=== PATIENT | female | born 1950 | race Hispanic/Latino ===

== ENCOUNTER 2017-10-24 16:11 | Inpatient (IN) | payer MEDICARE, OTHER ==
--- NOTE | 2017-10-24 17:31 | ED PDOC ---
HPI: General Adult Time Seen by Provider: 10/24/17 16:43 Chief Complaint (Nursing): Weakness/Neurological Deficit Chief Complaint (Provider): Weakness/Neurological Deficit History Per: Patient History/Exam Limitations: no limitations Onset/Duration Of Symptoms: Other (x today) Additional Complaint(s): Brittany is a 66 year old female with a past medical history of cerebral palsy who was sent by PMD to the Emergency Department for medical evaluation. Patient states she lives with her 95 year old mother. States they are no longer able to care for themselves. Family member states patient has been having frequent falls at home, no LOC. PMD: Jonn Medrano Past Medical History Reviewed: Historical Data, Nursing Documentation, Vital Signs Vital Signs: Last Vital Signs Temp 98.5 F 10/28/17 16:04 Pulse 93 H 10/28/17 16:04 Resp 19 10/28/17 16:04 BP 138/87 10/28/17 16:04 Pulse Ox 96 10/28/17 16:24 - Medical History Other PMH: Cerebral Palsy - Surgical History Surgical History: No Surg Hx - Family History Family History: States: No Known Family Hx - Living Arrangements Living Arrangements: Other (with 95 year old mother) - Home Medications Home Medications: Ambulatory Orders Medication Instructions Recorded Atorvastatin [Lipitor] 10 mg PO HS 10/24/17 Cholecalciferol (Vitamin D3) 2,000 unit PO DAILY 10/24/17 [Vitamin D3] Enalapril Maleate [Vasotec] 10 mg PO DAILY 10/24/17 Glipizide [Glipizide Xl] 10 mg PO BID 10/24/17 SITagliptin [Januvia] 100 mg PO DAILY 10/24/17 metFORMIN [glucOPHAGE] 850 mg PO BID 10/24/17 - Allergies Allergies/Adverse Reactions: Allergies Allergy/AdvReac Type Severity Reaction Status Date / Time Penicillins Allergy RASH Verified 10/24/17 16:42 Review of Systems ROS Statement: Except As Marked, All Systems Reviewed And Found Negative Constitutional: Positive for: Weakness Physical Exam - Reviewed Nursing Documentation Reviewed: Yes Vital Signs Reviewed: Yes - Physical Exam Appears: Positive for: Well, Non-toxic, No Acute Distress Head Exam: Positive for: NORMOCEPHALIC Cardiovascular/Chest: Positive for: Regular Rate, Rhythm Respiratory: Positive for: Normal Breath Sounds. Negative for: Respiratory Distress Extremity: Positive for: Other (Superfacial abrasions on arms secondary to self- scratching) Neurologic/Psych: Positive for: Alert, Oriented (x 3) - Laboratory Results Result Diagrams: 10/26/17 05:40 10/26/17 05:40 - ECG O2 Sat by Pulse Oximetry: 96 (RA) Pulse Ox Interpretation: Normal Medical Decision Making Medical Decision Making: Time: 17:22 Plan: - EKG - CMP - CNC - Partial Thromboplastin Time - Prothrombin Time - Portable Chest X-Ray - Glucose, Blood, POC STAT - Urinalysis Scribe Attestation: Documented by Husam Christianson, acting as a scribe for Audrey Alexander MD Provider Scribe Attestation: All medical record entries made by the Scribe were at my direction and personally dictated by me. I have reviewed the chart and agree that the record accurately reflects my personal performance of the history, physical exam, medical decision making, and the department course for this patient. I have also personally directed, reviewed, and agree with the discharge instructions and disposition. Disposition - Clinical Impression Clinical Impression: Frequent falls - Patient ED Disposition Is Patient to be Admitted: Yes - Disposition Disposition Time: 18:54 Condition: STABLE - Pt Status Changed To: Hospital Disposition Of: Inpatient - Admit Certification Admit to Inpatient:: After my assessment, the patient will require hospitalization for at least two midnights. This is because of the severity of symptoms shown, intensity of services needed, and/or the medical risk in this patient being treated as an outpatient. - POA Present On Arrival: Falls Or Trauma
[2017-10-24 18:02] LABS: BASO # 0.1 K/uL (0.0-0.2); BASO % 0.7 % (0.0-2.0); EOS # 0.1 K/uL (0.0-0.7); EOS % 1.1 % (0.0-4.0); LYMPH # 2.7 K/uL (1.0-4.3); LYMPH % 21.6 % (20.0-40.0); MEAN CELL VOLUME 90.7 fl (81.0-99.0); MEAN CORPUSCULAR HEMOGLOBIN 29.6 pg (27.0-31.0); MEAN CORPUSCULAR HGB CONC 32.6 g/dL (33.0-37.0); MONO # 0.9 K/uL (0.0-0.8); MONO % 6.8 % (0.0-10.0); NEUT # 8.8 K/uL (1.8-7.0); NEUT % 69.8 % (50.0-75.0); RED CELL DISTRIBUTION WIDTH 13.5 % (11.5-14.5); WHITE BLOOD COUNT 12.6 K/uL (4.8-10.8)
[2017-10-24 18:10] LABS: ALB/GLOB RATIO 1.5 (1.0-2.1); ALKALINE PHOSPHATASE 78 U/L (38-126); ALT/SGPT 54 U/L (9-52); AST/SGOT 24 U/L (14-36); BILIRUBIN,TOTAL 0.4 mg/dl (0.2-1.3); BLOOD UREA NITROGEN 17 mg/dl (7-17); CALCIUM 9.5 mg/dL (8.4-10.2); CARBON DIOXIDE 29 mmol/L (22-30); CHLORIDE 104 mmol/L (98-107); GFR AFRICAN-AMERICAN > 60; GLUCOSE,RANDOM 163 mg/dL (65-105); POTASSIUM 3.9 MMOL/L (3.6-5.0); SODIUM 144 mmol/l (132-148); TOTAL PROTEIN 7.5 G/DL (6.3-8.2)
[2017-10-24 18:25] LABS: PARTIAL THROMBOPLASTIN TIME 28.4 Seconds (25.6-37.1)
[2017-10-25 01:49] LABS: RBC URINE 3 /hpf (0-3); URINE BACTERIA OCC (<OCC); URINE BILIRUBIN NEGATIVE (NEGATIVE); URINE BLOOD NEGATIVE (NEGATIVE); URINE COLOR YELLOW (YELLOW); URINE GLUCOSE (UA) NEG (Normal); URINE KETONE NEGATIVE (NEGATIVE); URINE PROTEIN 30 mg/dL (NEGATIVE); URINE UROBILINOGEN 0.2-1.0 mg/dL (0.2-1.0); WBC URINE 15 /hpf (0-5)
[2017-10-25 01:53] LABS: URINE LEUKOCYTE ESTERASE SMALL Leu/uL (Negative)
[2017-10-25 06:23] LABS: HEMATOCRIT 40.4 % (34.0-47.0); MEAN CELL VOLUME 90.1 fl (81.0-99.0); MEAN CORPUSCULAR HEMOGLOBIN 30.3 pg (27.0-31.0); MEAN CORPUSCULAR HGB CONC 33.6 g/dL (33.0-37.0); RED CELL DISTRIBUTION WIDTH 13.6 % (11.5-14.5)
[2017-10-25 06:30] LABS: BLOOD UREA NITROGEN 16 mg/dl (7-17); CALCIUM 9.3 mg/dL (8.4-10.2); CARBON DIOXIDE 26 mmol/L (22-30); CHLORIDE 106 mmol/L (98-107); CHOLESTEROL 194 mg/dL (0-199); GFR AFRICAN-AMERICAN > 60; GLUCOSE,RANDOM 163 mg/dL (65-105); POTASSIUM 3.6 MMOL/L (3.6-5.0); SODIUM 141 mmol/l (132-148)
[2017-10-25 06:59] LABS: THYROID STIMULATING HORMONE 1.66 mIU/ML (0.46-4.68)
[2017-10-25] MEDS: GlipiZIDE 10 mg SR Tab PO SCH ×2 (08:46→17:26)
[2017-10-25] MEDS ORDERED: Enoxaparin 30 mg Syringe SC SCH (09:00)
--- NOTE | 2017-10-25 10:58 | CARD ---
APPROVED REPORT EKG Measurement Heart [id number] <Conclusion> Normal sinus rhythm Normal ECG
--- NOTE | 2017-10-25 11:28 | CP.PCM.CON ---
History of Present Illness - History of Present Illness History of Present Illness: This 66-year-old female who suffers from cerebral palsy presented to the emergency department with her mother the course of increased falls. Her mother who is her primary livestock caretaker is 95 years old and has developed dementia and appears to be unable to care for her daughter any longer. She is known to me from a prior office visit approximately 5 years ago at which time the history include hypertension, hyperlipidemia, NIDDM, and as mentioned above cerebral palsy. Had thyroid nodules which are benign. She did have recovering maxillary sinusitis with increased cough and expectoration because of posterior rhinorrhea. Review of Systems - Constitutional Constitutional: Frequent Falls, Weight Gain - EENT Nose/Mouth/Throat: Nasal Congestion, Post Nasal Drip - Respiratory Respiratory: Cough, Excessive Mucous Production - Musculoskeletal Musculoskeletal: Abnormal Gait - Integumentary Integumentary: Wounds Additional comments: Patient has a propensity to scratch her skin excessively resulting in excoriations. - Neurological Neurological: Abnormal Speech, Frequent Falls, Lack of Coordination Additional comments: cerebral palsy Past Patient History - Past Medical History & Family History Past Medical History?: Yes - Past Social History Smoking Status: Never Smoked Chewing Tobacco Use: No Cigar Use: No Alcohol: None Drugs: Denies Home Situation {Lives}: With Family - CARDIAC Hx Hypercholesterolemia: Yes Hx Hypertension: Yes - PULMONARY Hx Bronchitis: Yes - NEUROLOGICAL Hx Neurological Disorder: Yes Other/Comment: Pt has Cerebral Palsey - HEENT Hx Sinusitis: Yes - RENAL Hx Chronic Kidney Disease: No - ENDOCRINE/METABOLIC Hx Diabetes Mellitus Type 2: Yes - HEMATOLOGICAL/ONCOLOGICAL Hx Blood Disorders: No - INTEGUMENTARY Other/Comment: pruritus with diffuse excoriations - MUSCULOSKELETAL/RHEUMATOLOGICAL Hx Falls: Yes Hx Unsteady Gait: Yes - GASTROINTESTINAL Hx Gastrointestinal Disorders: No - GENITOURINARY/GYNECOLOGICAL Hx Genitourinary Disorders: No - PSYCHIATRIC Hx Substance Use: No - SURGICAL HISTORY Hx Surgeries: No - ANESTHESIA Hx Anesthesia: No Hx Anesthesia Reactions: No Hx Malignant Hyperthermia: No Meds Allergies/Adverse Reactions: Allergies Allergy/AdvReac Type Severity Reaction Status Date / Time Penicillins Allergy RASH Verified 10/24/17 16:42 - Medications Medications: Current Medications Atorvastatin Calcium (Lipitor) 10 mg PO [facility] Cholecalciferol (Vitamin D) 2,000 iu PO DAILY [facility] Last Admin: 10/25/17 08:47 Dose: 2,000 iu Enalapril Maleate (Vasotec) 10 mg PO DAILY [facility] Last Admin: 10/25/17 08:47 Dose: 10 mg Enoxaparin Sodium (Lovenox) 40 mg SC DAILY [facility] PRN Reason: Protocol Glipizide (Glucotrol Xl) 10 mg PO BID [facility] Last Admin: 10/25/17 08:46 Dose: 10 mg Metformin HCl (Glucophage) 850 mg PO BID [facility] Last Admin: 10/25/17 08:46 Dose: 850 mg Sitagliptin Phosphate (Januvia) 100 mg PO DAILY [facility] Last Admin: 10/25/17 08:46 Dose: 100 mg Physical Exam - Additional Findings Additional findings: No acute distress, but anxious because of hospitalization. Normocephalic without any lesions. No palpable lymphadenopathy. Conjunctivae are pink and there is no scleral icterus. Mild periorbital edema is noted bilaterally. Nares are patent bilaterally. Watery secretions are noted in both nasal passages. Throat is mildly hyperemic without any exudate. Mucous membranes are moist. Neck supple and trachea is midline. No neck vein distention or carotid bruit. Few scattered sonorous rhonchi are heard in the lower lobes bilaterally. No rales or wheezes. No bronchial breathing or egophony. Heart rhythm is regular and heart sounds are well heard. A soft systolic ejection murmurs present at the base. Abdomen is soft and nontender with normal bowel sounds. No dependent edema. No erythema. Scattered excoriations and scabbing are noted. Results - Vital Signs Recent Vital Signs: Last Vital Signs Temp 98.1 F 10/25/17 08:01 Pulse 74 10/25/17 08:01 Resp 20 10/25/17 08:01 BP 158/78 H 10/25/17 08:01 Pulse Ox 93 L 10/25/17 08:01 - Labs Result Diagrams: 10/26/17 05:40 10/26/17 05:40 Labs: Laboratory Results - last 24 hr 10/24/17 10/24/17 10/24/17 17:04 17:45 17:45 WBC 12.6 H RBC 4.52 Hgb 13.4 Hct 41.0 MCV 90.7 MCH 29.6 MCHC 32.6 L RDW 13.5 Plt Count 283 MPV 8.0 Neut % (Auto) 69.8 Lymph % (Auto) 21.6 [place] % (Auto) 6.8 Eos % (Auto) 1.1 Baso % (Auto) 0.7 Neut # 8.8 H Lymph # 2.7 [place] # 0.9 H Eos # 0.1 Baso # 0.1 PT INR APTT Sodium 144 Potassium 3.9 Chloride 104 Carbon Dioxide 29 Anion Gap 15 BUN 17 Creatinine 0.7 Est GFR ( Amer) > 60 Est GFR (Non-Af Amer) > 60 POC Glucose (mg/dL) 176 H Random Glucose 163 H Calcium 9.5 Total Bilirubin 0.4 AST 24 ALT 54 H Alkaline Phosphatase 78 Total Protein 7.5 Albumin 4.5 Globulin 3.0 Albumin/Globulin Ratio 1.5 Triglycerides Cholesterol LDL Cholesterol Direct HDL Cholesterol TSH 3rd Generation Urine Color Urine Clarity Urine pH Ur Specific [place] Urine Protein Urine Glucose (UA) Urine Ketones Urine Blood Urine Nitrate Urine Bilirubin Urine Urobilinogen Ur Leukocyte Esterase Urine RBC (Auto) Urine Microscopic WBC Ur Squamous Epith Cells Urine Bacteria 10/24/17 10/25/17 10/25/17 17:45 01:38 05:40 WBC 13.0 H RBC 4.48 Hgb 13.6 Hct 40.4 MCV 90.1 MCH 30.3 MCHC 33.6 RDW 13.6 Plt Count 271 MPV Neut % (Auto) Lymph % (Auto) [place] % (Auto) Eos % (Auto) Baso % (Auto) Neut # Lymph # [place] # Eos # Baso # PT 11.3 INR 1.0 APTT 28.4 Sodium Potassium Chloride Carbon Dioxide Anion Gap BUN Creatinine Est GFR ( Amer) Est GFR (Non-Af Amer) POC Glucose (mg/dL) Random Glucose Calcium Total Bilirubin AST ALT Alkaline Phosphatase Total Protein Albumin Globulin Albumin/Globulin Ratio Triglycerides Cholesterol LDL Cholesterol Direct HDL Cholesterol TSH 3rd Generation Urine Color Yellow Urine Clarity Cloudy Urine pH 6.0 Ur Specific [place] 1.020 Urine Protein 30 Urine Glucose (UA) Neg Urine Ketones Negative Urine Blood Negative Urine Nitrate Negative Urine Bilirubin Negative Urine Urobilinogen 0.2-1.0 Ur Leukocyte Esterase Small Urine RBC (Auto) 3 Urine Microscopic WBC 15 H Ur Squamous Epith Cells < 1 Urine Bacteria Occ H 10/25/17 10/25/17 05:40 05:58 WBC RBC Hgb Hct MCV MCH MCHC RDW Plt Count MPV Neut % (Auto) Lymph % (Auto) [place] % (Auto) Eos % (Auto) Baso % (Auto) Neut # Lymph # [place] # Eos # Baso # PT INR APTT Sodium 141 Potassium 3.6 Chloride 106 Carbon Dioxide 26 Anion Gap 13 BUN 16 Creatinine 0.7 Est GFR ( Amer) > 60 Est GFR (Non-Af Amer) > 60 POC Glucose (mg/dL) 154 H Random Glucose 163 H Calcium 9.3 Total Bilirubin AST ALT Alkaline Phosphatase Total Protein Albumin Globulin Albumin/Globulin Ratio Triglycerides 116 Cholesterol 194 LDL Cholesterol Direct 102 HDL Cholesterol 64 TSH 3rd Generation 1.66 Urine Color Urine Clarity Urine pH Ur Specific [place] Urine Protein Urine Glucose (UA) Urine Ketones Urine Blood Urine Nitrate Urine Bilirubin Urine Urobilinogen Ur Leukocyte Esterase Urine RBC (Auto) Urine Microscopic WBC Ur Squamous Epith Cells Urine Bacteria Assessment & Plan (1) Cerebral palsy Status: Chronic Priority: High (2) Prurigo nodularis Status: Chronic Priority: Medium (3) Chronic rhinitis Status: Chronic Priority: Medium (4) Posterior rhinorrhea Status: Chronic Priority: Medium - Assessment and Plan (Free Text) Plan: No active pulmonary interventions are required at this time. - Date & Time Date: 10/25/17 Time: 11:
--- NOTE | 2017-10-25 11:37 | RAD ---
HISTORY: Medical clearance COMPARISON: No prior. FINDINGS: LUNGS: No definite infiltrate is suspected however cardiomegaly and obese body habitus limited penetration in the left base and trace atelectasis or infiltrate is difficult to fully exclude. None is seen the right. Mid and superior lung zones are clear bilaterally PLEURA: No significant pleural effusion identified, no pneumothorax apparent. CARDIOVASCULAR: Cardiomegaly is noted without definite pulmonary vascular derangement. OSSEOUS STRUCTURES: No significant abnormalities. VISUALIZED UPPER ABDOMEN: Normal. OTHER FINDINGS: None. IMPRESSION: Cardiomegaly. It is difficult to completely exclude limited infiltrate or atelectasis at the left base but none is suspected. The right chest is clear. No definite pulmonary vascular derangement identified.
--- NOTE | 2017-10-25 14:36 | CP.PCM.CON ---
History of Present Illness - History of Present Illness History of Present Illness: Mrs. Stevenson is a 66-year-old woman with a past medical history of hypertension, DM, dyslipidemia and cerebral palsy, who was admitted for more frequent falls. According to the patient's mother, who is admitted in the room with the patient for failure to thrive, her and her daughter have been under a significant amount of stress due to losing their home. Apparently, the house was sold without their knowledge. The mother denies that the patient has had any more falls than usual and the multiple wounds that the patient has are self- inflicted due to her compulsive skin picking. Review of Systems - Review of Systems All systems: reviewed and no additional remarkable complaints except Past Patient History - Past Medical History & Family History Past Medical History?: Yes - Past Social History Smoking Status: Never Smoked Chewing Tobacco Use: No Cigar Use: No Alcohol: None Drugs: Denies Home Situation {Lives}: With Family - CARDIAC Hx Cardiac Disorders: No - PULMONARY Hx Respiratory Disorders: No - NEUROLOGICAL Hx Neurological Disorder: Yes Other/Comment: Pt has Cerebral Palsey - HEENT Hx Sinusitis: Yes - RENAL Hx Chronic Kidney Disease: No - ENDOCRINE/METABOLIC Hx Diabetes Mellitus Type 2: Yes - HEMATOLOGICAL/ONCOLOGICAL Hx Blood Disorders: No - INTEGUMENTARY Hx Dermatological Problems: No - MUSCULOSKELETAL/RHEUMATOLOGICAL Hx Falls: Yes - GASTROINTESTINAL Hx Gastrointestinal Disorders: No - GENITOURINARY/GYNECOLOGICAL Hx Genitourinary Disorders: No - PSYCHIATRIC Hx Substance Use: No - SURGICAL HISTORY Hx Surgeries: No - ANESTHESIA Hx Anesthesia: No Hx Anesthesia Reactions: No Hx Malignant Hyperthermia: No Meds Allergies/Adverse Reactions: Allergies Allergy/AdvReac Type Severity Reaction Status Date / Time Penicillins Allergy RASH Verified 10/24/17 16:42 - Medications Medications: Current Medications Atorvastatin Calcium (Lipitor) 10 mg PO HS [facility] Cholecalciferol (Vitamin D) 2,000 iu PO DAILY [facility] Last Admin: 10/25/17 08:47 Dose: 2,000 iu Enalapril Maleate (Vasotec) 10 mg PO DAILY [facility] Last Admin: 10/25/17 08:47 Dose: 10 mg Enoxaparin Sodium (Lovenox) 40 mg SC DAILY [facility] PRN Reason: Protocol Glipizide (Glucotrol Xl) 10 mg PO BID [facility] Last Admin: 10/25/17 08:46 Dose: 10 mg Insulin Human Regular (Humulin R) 0 units SC ACHS [facility] PRN Reason: Protocol Metformin HCl (Glucophage) 850 mg PO BID [facility] Last Admin: 10/25/17 08:46 Dose: 850 mg Sitagliptin Phosphate (Januvia) 100 mg PO DAILY [facility] Last Admin: 10/25/17 08:46 Dose: 100 mg Physical Exam - Constitutional Appears: Unkempt - Head Exam Head Exam: ATRAUMATIC, NORMAL INSPECTION, NORMOCEPHALIC - Eye Exam Eye Exam: EOMI, Normal appearance, PERRL - ENT Exam ENT Exam: Mucous Membranes Moist, Normal Exam - Neck Exam Neck exam: Positive for: Normal Inspection - Respiratory Exam Respiratory Exam: Clear to Auscultation Bilateral, NORMAL BREATHING PATTERN - Cardiovascular Exam Cardiovascular Exam: REGULAR RHYTHM, +S1, +S2 - GI/Abdominal Exam GI & Abdominal Exam: Normal Bowel Sounds, Soft. absent: Tenderness - Rectal Exam Rectal Exam: Deferred - Extremities Exam Extremities exam: Positive for: normal inspection - Neurological Exam Neurological exam: Abnormal Gait, CN II-XII Intact, Oriented x3 Additional comments: Reflexes are brisk throughout, she has mild contractures throughout and generalized 4/5 strength with poor coordination. - Psychiatric Exam Psychiatric exam: Normal Affect, Normal Mood - Skin Skin Exam: Abrasion, Erythema, Rash Results - Vital Signs Recent Vital Signs: Last Vital Signs Temp 98.1 F 10/25/17 08:01 Pulse 74 10/25/17 08:01 Resp 20 10/25/17 08:01 BP 158/78 H 10/25/17 08:01 Pulse Ox 93 L 10/25/17 08:01 - Labs Result Diagrams: 10/25/17 05:40 10/25/17 05:40 Labs: Laboratory Results - last 24 hr 10/24/17 10/24/17 10/24/17 17:04 17:45 17:45 WBC 12.6 H RBC 4.52 Hgb 13.4 Hct 41.0 MCV 90.7 MCH 29.6 MCHC 32.6 L RDW 13.5 Plt Count 283 MPV 8.0 Neut % (Auto) 69.8 Lymph % (Auto) 21.6 [place] % (Auto) 6.8 Eos % (Auto) 1.1 Baso % (Auto) 0.7 Neut # 8.8 H Lymph # 2.7 [place] # 0.9 H Eos # 0.1 Baso # 0.1 PT INR APTT Sodium 144 Potassium 3.9 Chloride 104 Carbon Dioxide 29 Anion Gap 15 BUN 17 Creatinine 0.7 Est GFR ( Amer) > 60 Est GFR (Non-Af Amer) > 60 POC Glucose (mg/dL) 176 H Random Glucose 163 H Hemoglobin A1c Calcium 9.5 Total Bilirubin 0.4 AST 24 ALT 54 H Alkaline Phosphatase 78 Total Protein 7.5 Albumin 4.5 Globulin 3.0 Albumin/Globulin Ratio 1.5 Triglycerides Cholesterol LDL Cholesterol Direct HDL Cholesterol TSH 3rd Generation Urine Color Urine Clarity Urine pH Ur Specific [place] Urine Protein Urine Glucose (UA) Urine Ketones Urine Blood Urine Nitrate Urine Bilirubin Urine Urobilinogen Ur Leukocyte Esterase Urine RBC (Auto) Urine Microscopic WBC Ur Squamous Epith Cells Urine Bacteria 10/24/17 10/25/17 10/25/17 17:45 01:38 05:40 WBC 13.0 H RBC 4.48 Hgb 13.6 Hct 40.4 MCV 90.1 MCH 30.3 MCHC 33.6 RDW 13.6 Plt Count 271 MPV Neut % (Auto) Lymph % (Auto) [place] % (Auto) Eos % (Auto) Baso % (Auto) Neut # Lymph # [place] # Eos # Baso # PT 11.3 INR 1.0 APTT 28.4 Sodium Potassium Chloride Carbon Dioxide Anion Gap BUN Creatinine Est GFR ( Amer) Est GFR (Non-Af Amer) POC Glucose (mg/dL) Random Glucose Hemoglobin A1c Calcium Total Bilirubin AST ALT Alkaline Phosphatase Total Protein Albumin Globulin Albumin/Globulin Ratio Triglycerides Cholesterol LDL Cholesterol Direct HDL Cholesterol TSH 3rd Generation Urine Color Yellow Urine Clarity Cloudy Urine pH 6.0 Ur Specific [place] 1.020 Urine Protein 30 Urine Glucose (UA) Neg Urine Ketones Negative Urine Blood Negative Urine Nitrate Negative Urine Bilirubin Negative Urine Urobilinogen 0.2-1.0 Ur Leukocyte Esterase Small Urine RBC (Auto) 3 Urine Microscopic WBC 15 H Ur Squamous Epith Cells < 1 Urine Bacteria Occ H 10/25/17 10/25/17 10/25/17 05:40 05:40 05:58 WBC RBC Hgb Hct MCV MCH MCHC RDW Plt Count MPV Neut % (Auto) Lymph % (Auto) [place] % (Auto) Eos % (Auto) Baso % (Auto) Neut # Lymph # [place] # Eos # Baso # PT INR APTT Sodium 141 Potassium 3.6 Chloride 106 Carbon Dioxide 26 Anion Gap 13 BUN 16 Creatinine 0.7 Est GFR ( Amer) > 60 Est GFR (Non-Af Amer) > 60 POC Glucose (mg/dL) 154 H Random Glucose 163 H Hemoglobin A1c 8.4 H Calcium 9.3 Total Bilirubin AST ALT Alkaline Phosphatase Total Protein Albumin Globulin Albumin/Globulin Ratio Triglycerides 116 Cholesterol 194 LDL Cholesterol Direct 102 HDL Cholesterol 64 TSH 3rd Generation 1.66 Urine Color Urine Clarity Urine pH Ur Specific [place] Urine Protein Urine Glucose (UA) Urine Ketones Urine Blood Urine Nitrate Urine Bilirubin Urine Urobilinogen Ur Leukocyte Esterase Urine RBC (Auto) Urine Microscopic WBC Ur Squamous Epith Cells Urine Bacteria 10/25/17 11:40 WBC RBC Hgb Hct MCV MCH MCHC RDW Plt Count MPV Neut % (Auto) Lymph % (Auto) [place] % (Auto) Eos % (Auto) Baso % (Auto) Neut # Lymph # [place] # Eos # Baso # PT INR APTT Sodium Potassium Chloride Carbon Dioxide Anion Gap BUN Creatinine Est GFR ( Amer) Est GFR (Non-Af Amer) POC Glucose (mg/dL) 152 H Random Glucose Hemoglobin A1c Calcium Total Bilirubin AST ALT Alkaline Phosphatase Total Protein Albumin Globulin Albumin/Globulin Ratio Triglycerides Cholesterol LDL Cholesterol Direct HDL Cholesterol TSH 3rd Generation Urine Color Urine Clarity Urine pH Ur Specific [place] Urine Protein Urine Glucose (UA) Urine Ketones Urine Blood Urine Nitrate Urine Bilirubin Urine Urobilinogen Ur Leukocyte Esterase Urine RBC (Auto) Urine Microscopic WBC Ur Squamous Epith Cells Urine Bacteria Assessment & Plan (1) Cerebral palsy Assessment and Plan: The patient likely has falls due to her chronic condition. There are no recommended changes in her medication. I recommend social work administrator consult and case management consult for the current housing problems. PT/OT is also recommended. Thank you. Status: Chronic Priority: Medium
[2017-10-25] MEDS: Insulin Regular 100 units/ml SC SCH ×2 (17:36→22:05)
--- NOTE | 2017-10-25 20:48 | CP.PCM.HP ---
History of Present Illness - History of Present Illness History of Present Illness: 66 yo with hx of Cerebral Palsy HTN NIDDM admitted for recurrent falls Present on Admission - Present on Admission Any Indicators Present on Admission: No Past Patient History - Past Medical History & Family History Past Medical History?: Yes - Past Social History Smoking Status: Never Smoked Chewing Tobacco Use: No Cigar Use: No Alcohol: None Drugs: Denies Home Situation {Lives}: With Family - CARDIAC Hx Cardiac Disorders: No - PULMONARY Hx Respiratory Disorders: No - NEUROLOGICAL Hx Neurological Disorder: Yes Other/Comment: Pt has Cerebral Palsey - HEENT Hx Sinusitis: Yes - RENAL Hx Chronic Kidney Disease: No - ENDOCRINE/METABOLIC Hx Diabetes Mellitus Type 2: Yes - HEMATOLOGICAL/ONCOLOGICAL Hx Blood Disorders: No - INTEGUMENTARY Hx Dermatological Problems: No - MUSCULOSKELETAL/RHEUMATOLOGICAL Hx Falls: Yes - GASTROINTESTINAL Hx Gastrointestinal Disorders: No - GENITOURINARY/GYNECOLOGICAL Hx Genitourinary Disorders: No - PSYCHIATRIC Hx Substance Use: No - SURGICAL HISTORY Hx Surgeries: No - ANESTHESIA Hx Anesthesia: No Hx Anesthesia Reactions: No Hx Malignant Hyperthermia: No Meds Allergies/Adverse Reactions: Allergies Allergy/AdvReac Type Severity Reaction Status Date / Time Penicillins Allergy RASH Verified 10/24/17 16:42 Physical Exam - Respiratory Exam Respiratory Exam: NORMAL BREATHING PATTERN - Cardiovascular Exam Cardiovascular Exam: REGULAR RHYTHM - GI/Abdominal Exam GI & Abdominal Exam: Normal Bowel Sounds Results - Vital Signs Recent Vital Signs: Last Vital Signs Temp 98.1 F 10/25/17 16:30 Pulse 86 10/25/17 17:32 Resp 20 10/25/17 16:30 BP 111/60 10/25/17 16:30 Pulse Ox 96 10/25/17 17:32 - Labs Result Diagrams: 10/25/17 05:40 10/25/17 05:40 Labs: Laboratory Results - last 24 hr 10/24/17 10/25/17 10/25/17 17:04 01:38 05:40 WBC 13.0 H RBC 4.48 Hgb 13.6 Hct 40.4 MCV 90.1 MCH 30.3 MCHC 33.6 RDW 13.6 Plt Count 271 Sodium Potassium Chloride Carbon Dioxide Anion Gap BUN Creatinine Est GFR ( Amer) Est GFR (Non-Af Amer) POC Glucose (mg/dL) 176 H Random Glucose Hemoglobin A1c Calcium Triglycerides Cholesterol LDL Cholesterol Direct HDL Cholesterol TSH 3rd Generation Urine Color Yellow Urine Clarity Cloudy Urine pH 6.0 Ur Specific Sandwich 1.020 Urine Protein 30 Urine Glucose (UA) Neg Urine Ketones Negative Urine Blood Negative Urine Nitrate Negative Urine Bilirubin Negative Urine Urobilinogen 0.2-1.0 Ur Leukocyte Esterase Small Urine RBC (Auto) 3 Urine Microscopic WBC 15 H Ur Squamous Epith Cells < 1 Urine Bacteria Occ H 10/25/17 10/25/17 10/25/17 05:40 05:40 05:58 WBC RBC Hgb Hct MCV MCH MCHC RDW Plt Count Sodium 141 Potassium 3.6 Chloride 106 Carbon Dioxide 26 Anion Gap 13 BUN 16 Creatinine 0.7 Est GFR ( Amer) > 60 Est GFR (Non-Af Amer) > 60 POC Glucose (mg/dL) 154 H Random Glucose 163 H Hemoglobin A1c 8.4 H Calcium 9.3 Triglycerides 116 Cholesterol 194 LDL Cholesterol Direct 102 HDL Cholesterol 64 TSH 3rd Generation 1.66 Urine Color Urine Clarity Urine pH Ur Specific Sandwich Urine Protein Urine Glucose (UA) Urine Ketones Urine Blood Urine Nitrate Urine Bilirubin Urine Urobilinogen Ur Leukocyte Esterase Urine RBC (Auto) Urine Microscopic WBC Ur Squamous Epith Cells Urine Bacteria 10/25/17 10/25/17 11:40 17:34 WBC RBC Hgb Hct MCV MCH MCHC RDW Plt Count Sodium Potassium Chloride Carbon Dioxide Anion Gap BUN Creatinine Est GFR ( Amer) Est GFR (Non-Af Amer) POC Glucose (mg/dL) 152 H 176 H Random Glucose Hemoglobin A1c Calcium Triglycerides Cholesterol LDL Cholesterol Direct HDL Cholesterol TSH 3rd Generation Urine Color Urine Clarity Urine pH Ur Specific Sandwich Urine Protein Urine Glucose (UA) Urine Ketones Urine Blood Urine Nitrate Urine Bilirubin Urine Urobilinogen Ur Leukocyte Esterase Urine RBC (Auto) Urine Microscopic WBC Ur Squamous Epith Cells Urine Bacteria Assessment & Plan - Assessment and Plan (Free Text) Assessment: Recurrent falls Cerebral Palsy Neurology HTN NIDDM Cont meds Endo - Date & Time Date: 10/25/17 Time: 22:22
--- NOTE | 2017-10-26 05:39 | CON ---
DATE: ROOM: 655. HISTORY OF PRESENT ILLNESS: This is a 66-year-old female with known history of type 2 diabetes and hypertension, presenting here with frequent falling episodes and facial injuries and is now being referred for diabetic evaluation and management. PAST MEDICAL HISTORY: History of type 2 diabetes, very well known to me, and seen and is followed in my office, and currently on a combination of metformin given at 850 mg b.i.d. and Januvia 100 mg daily with glipizide given as 10 mg b.i.d. as noted. History of hypertensive cardiovascular disease and dyslipidemia. No history of cerebral palsy since , and the patient actually is mentally and physically challenged as noted. FAMILY HISTORY: Positive for diabetes and hypertension. SOCIAL HISTORY: The patient depends on her mother, who is a 95-year-old mother for all the personal and medical care at home. She is a special needs person, and is mentally and physically challenged as mentioned. REVIEW OF SYSTEMS: As mentioned above, admits to generalized body weakness with easy fatigability and tiredness with suboptimal energy level, has been noted to have frequent falling episodes both at home and even outside especially when they are walking around the block or crossing the streets in their neighborhood. She denies any dizziness or lightheadedness, but admits to lower extremity weakness and facial paresthesias as noted. No chest pains or palpitations or PND. Her oral intake has been variable with improved oral intake and marked hyperphagia as noted. No alterations in bowel or urinary pattern. PHYSICAL EXAMINATION: GENERAL: This is an overweight female, in no apparent distress. VITAL SIGNS: Blood pressure of 140/80, pulse of 70 beats per minute and regular, temperature 98, respirations 20, height is 4 feet 11 inches, weight is 147 pounds. HEENT: Head normocephalic. Eyes anicteric with pink conjunctivae. Funduscopy not possible at this time. Ears, nose, and throat otherwise normal. NECK: Supple. Thyroid gland is normal in size. No carotid bruits or any cervical adenopathy. CARDIOPULMONARY: Adynamic precordium. S1, S2 is rapid and regular. LUNGS: Clear to auscultation. ABDOMEN: Obese, soft, with positive bowel sounds. EXTREMITIES: No peripheral edema. Pulses are +2 bilaterally. LABORATORY DATA: The chemistry showed the BUN of 16, sodium 141, potassium 3.6, chloride 106, CO2 of 26, glucose 163 and creatinine 0.7. The hemoglobin A1c is 8.4%. ASSESSMENT: This is a 66-year-old female with uncontrolled and decompensated type 2 diabetes, currently on a combination of oral hypoglycemic drug therapy with concomitant cerebral palsy and supervening marked and frequent falling episodes with no apparent etiology at this time. She also has evidence of underlying diabetic polyneuropathy as noted otherwise. PLAN OF MANAGEMENT: As discussed with the patient and staff. We will concur with the present neurological workup at this time to determine the etiology of the aforementioned falling episodes. In the meantime, we will restart back her triple oral hypoglycemic drug therapy as given. We will obtain serial chemistries and supplement accordingly as needed. We will obtain a social science research assistant consult and evaluation as this would be a very unsafe discharge to home with a 95-year-old mother who is very frail with increasing forgetfulness and dementia at this time. We will discuss with the primary care physician and the manager social services also at this time. Shani Gay MD
[2017-10-26] MEDS: Insulin Regular 100 units/ml SC SCH ×4 (06:51→21:39)
[2017-10-26 06:52] LABS: MEAN CELL VOLUME 90.4 fl (81.0-99.0); MEAN CORPUSCULAR HEMOGLOBIN 30.8 pg (27.0-31.0); RED CELL DISTRIBUTION WIDTH 13.8 % (11.5-14.5); WHITE BLOOD COUNT 12.4 K/uL (4.8-10.8)
[2017-10-26 06:58] LABS: BLOOD UREA NITROGEN 19 mg/dl (7-17); CARBON DIOXIDE 25 mmol/L (22-30); CHLORIDE 103 mmol/L (98-107); GFR AFRICAN-AMERICAN > 60; POTASSIUM 4.2 MMOL/L (3.6-5.0)
[2017-10-26 07:02] LABS: CALCIUM 9.4 mg/dL (8.4-10.2); GLUCOSE,RANDOM 181 mg/dL (65-105); SODIUM 139 mmol/l (132-148)
--- NOTE | 2017-10-26 09:06 | CP.PCM.PN ---
Subjective - Date & Time of Evaluation Date of Evaluation: 10/26/17 Time of Evaluation: 09:02 - Subjective Subjective: Ms. Stevenson was seen and examined at the bedside. She is alert and denies any headache, dizziness, weakness, nausea, or vomiting. The patient refused to eat due to her mother hallucinations for persecution. Both mother and daughter are dressed up ready to go out. They remain on 1;1 sitter for patient safety. Objective - Vital Signs/Intake and Output Vital Signs (last 24 hours): Temp Pulse Resp BP Pulse Ox 97.8 F 78 20 110/69 98 10/26/17 00:39 10/26/17 00:39 10/26/17 00:39 10/26/17 00:39 10/26/17 00:39 - Medications Medications: Current Medications Atorvastatin Calcium (Lipitor) 10 mg PO HS [facility] Last Admin: 10/25/17 22:04 Dose: 10 mg Cholecalciferol (Vitamin D) 2,000 iu PO DAILY [facility] Last Admin: 10/25/17 08:47 Dose: 2,000 iu Enalapril Maleate (Vasotec) 10 mg PO DAILY [facility] Last Admin: 10/25/17 08:47 Dose: 10 mg Enoxaparin Sodium (Lovenox) 40 mg SC DAILY [facility] PRN Reason: Protocol Glipizide (Glucotrol Xl) 10 mg PO BID [facility] Last Admin: 10/25/17 17:26 Dose: 10 mg Insulin Human Regular (Humulin R) 0 units SC [facility] PRN Reason: Protocol Last Admin: 10/26/17 06:51 Dose: Not Given Metformin HCl (Glucophage) 850 mg PO BID [facility] Last Admin: 10/25/17 17:26 Dose: 850 mg Sitagliptin Phosphate (Januvia) 100 mg PO DAILY [facility] Last Admin: 10/25/17 08:46 Dose: 100 mg - Labs Labs: 10/26/17 05:40 10/26/17 05:40 PT 11.3 Seconds (9.8-13.1) 10/24/17 17:45 INR 1.0 (0.9-1.2) 10/24/17 17:45 APTT 28.4 Seconds (25.6-37.1) 10/24/17 17:45 - Constitutional Appears: No Acute Distress - Head Exam Head Exam: ATRAUMATIC - Neurological Exam Neurological Exam: Alert, Awake Neuro motor strength exam: Left Upper Extremity: 5, Right Upper Extremity: 5, Left Lower Extremity: 5, Right Lower Extremity: 5 Additional comments: Neurological unchanged from previous examination. Assessment and Plan (1) Cerebral palsy Assessment & Plan: Case discussed with Dr. Tucker, continue alll current medical, physical, and occupational therapies. There is no new recommendation from neurology. Status: Chronic
[2017-10-26] MEDS: GlipiZIDE 10 mg SR Tab PO SCH ×2 (09:23→17:58)
[2017-10-26] MEDS: Enoxaparin 40 mg Syringe SC SCH (09:23)
--- NOTE | 2017-10-26 10:34 | CP.PCM.CON ---
History of Present Illness - History of Present Illness History of Present Illness: 66 yo female with cerebral palsy , DM2, and hypertension admitted with mother for inability to thrive. Consulted for hypertension. Past Patient History - Past Medical History & Family History Past Medical History?: Yes - Past Social History Smoking Status: Never Smoked Chewing Tobacco Use: No Cigar Use: No Alcohol: None Drugs: Denies Home Situation {Lives}: With Family - CARDIAC Hx Cardiac Disorders: No - PULMONARY Hx Respiratory Disorders: No - NEUROLOGICAL Hx Neurological Disorder: Yes Other/Comment: Pt has Cerebral Palsey - HEENT Hx Sinusitis: Yes - RENAL Hx Chronic Kidney Disease: No - ENDOCRINE/METABOLIC Hx Diabetes Mellitus Type 2: Yes - HEMATOLOGICAL/ONCOLOGICAL Hx Blood Disorders: No - INTEGUMENTARY Hx Dermatological Problems: No - MUSCULOSKELETAL/RHEUMATOLOGICAL Hx Falls: Yes - GASTROINTESTINAL Hx Gastrointestinal Disorders: No - GENITOURINARY/GYNECOLOGICAL Hx Genitourinary Disorders: No - PSYCHIATRIC Hx Substance Use: No - SURGICAL HISTORY Hx Surgeries: No - ANESTHESIA Hx Anesthesia: No Hx Anesthesia Reactions: No Hx Malignant Hyperthermia: No Meds Allergies/Adverse Reactions: Allergies Allergy/AdvReac Type Severity Reaction Status Date / Time Penicillins Allergy RASH Verified 10/24/17 16:42 - Medications Medications: Current Medications Atorvastatin Calcium (Lipitor) 10 mg PO HS [facility] Last Admin: 10/25/17 22:04 Dose: 10 mg Cholecalciferol (Vitamin D) 2,000 iu PO DAILY [facility] Last Admin: 10/26/17 09:23 Dose: Not Given Enalapril Maleate (Vasotec) 10 mg PO DAILY [facility] Last Admin: 10/26/17 09:23 Dose: Not Given Enoxaparin Sodium (Lovenox) 40 mg SC DAILY [facility] PRN Reason: Protocol Last Admin: 10/26/17 09:23 Dose: Not Given Glipizide (Glucotrol Xl) 10 mg PO BID [facility] Last Admin: 10/26/17 09:23 Dose: Not Given Insulin Human Regular (Humulin R) 0 units SC [facility] PRN Reason: Protocol Last Admin: 10/26/17 06:51 Dose: Not Given Metformin HCl (Glucophage) 850 mg PO BID [facility] Last Admin: 10/26/17 09:23 Dose: Not Given Sitagliptin Phosphate (Januvia) 100 mg PO DAILY [facility] Last Admin: 10/26/17 09:23 Dose: Not Given Physical Exam - Head Exam Head Exam: NORMAL INSPECTION - Neck Exam Neck exam: Positive for: Normal Inspection - Respiratory Exam Respiratory Exam: Clear to Auscultation Bilateral - Cardiovascular Exam Cardiovascular Exam: REGULAR RHYTHM - GI/Abdominal Exam GI & Abdominal Exam: Normal Bowel Sounds - Extremities Exam Extremities exam: Positive for: normal inspection Results - Vital Signs Recent Vital Signs: Last Vital Signs Temp 97.8 F 10/26/17 00:39 Pulse 78 10/26/17 00:39 Resp 20 10/26/17 00:39 BP 110/69 10/26/17 00:39 Pulse Ox 98 10/26/17 00:39 - Labs Result Diagrams: 10/26/17 05:40 10/26/17 05:40 Labs: Laboratory Results - last 24 hr 10/25/17 10/25/17 10/25/17 05:40 11:40 17:34 WBC RBC Hgb Hct MCV MCH MCHC RDW Plt Count Sodium Potassium Chloride Carbon Dioxide Anion Gap BUN Creatinine Est GFR ( Amer) Est GFR (Non-Af Amer) POC Glucose (mg/dL) 152 H 176 H Random Glucose Hemoglobin A1c 8.4 H Calcium 10/25/17 10/26/17 10/26/17 21:49 05:40 05:40 WBC 12.4 H RBC 4.42 Hgb 13.6 Hct 40.0 MCV 90.4 MCH 30.8 MCHC 34.0 RDW 13.8 Plt Count 303 Sodium 139 Potassium 4.2 Chloride 103 Carbon Dioxide 25 Anion Gap 15 BUN 19 H Creatinine 0.7 Est GFR ( Amer) > 60 Est GFR (Non-Af Amer) > 60 POC Glucose (mg/dL) 195 H Random Glucose 181 H Hemoglobin A1c Calcium 9.4 10/26/17 06:36 WBC RBC Hgb Hct MCV MCH MCHC RDW Plt Count Sodium Potassium Chloride Carbon Dioxide Anion Gap BUN Creatinine Est GFR ( Amer) Est GFR (Non-Af Amer) POC Glucose (mg/dL) 203 H Random Glucose Hemoglobin A1c Calcium Assessment & Plan - Assessment and Plan (Free Text) Assessment: Blood Pressure is controlled on Enalapril Would continue current medical regimen No unstable cardiac symptoms
--- NOTE | 2017-10-26 11:40 | CP.PCM.PN ---
Subjective - Date & Time of Evaluation Date of Evaluation: 10/26/17 Time of Evaluation: 11:35 - Subjective Subjective: Seen in her room with her mother present. She was seated in a bedside chair in no distress. Her mother did interrupt the exam on numerous occasions questioning why I was there. Brittany's exam was relatively unremarkable with good breath sounds heard in all lung swann. No audible wheezing or bronchial breathing. Scattered sonorous rhonchi are present in dependant zones of both lungs. Neck is supple and trachea midline. Nares are patent bilaterally w/o bleeding or exudate. Pharynx is pink and moist w/o exudate. Continue present medical regimen. The patient will require shelter care because of her CP. Objective - Vital Signs/Intake and Output Vital Signs (last 24 hours): Temp Pulse Resp BP Pulse Ox 97.8 F 78 20 110/69 98 10/26/17 00:39 10/26/17 00:39 10/26/17 00:39 10/26/17 00:39 10/26/17 00:39 - Medications Medications: Current Medications Atorvastatin Calcium (Lipitor) 10 mg PO HS [facility] Last Admin: 10/25/17 22:04 Dose: 10 mg Cholecalciferol (Vitamin D) 2,000 iu PO DAILY [facility] Last Admin: 10/26/17 09:23 Dose: Not Given Enalapril Maleate (Vasotec) 10 mg PO DAILY [facility] Last Admin: 10/26/17 09:23 Dose: Not Given Enoxaparin Sodium (Lovenox) 40 mg SC DAILY [facility] PRN Reason: Protocol Last Admin: 10/26/17 09:23 Dose: Not Given Glipizide (Glucotrol Xl) 10 mg PO BID [facility] Last Admin: 10/26/17 09:23 Dose: Not Given Insulin Human Regular (Humulin R) 0 units SC [facility] PRN Reason: Protocol Last Admin: 10/26/17 06:51 Dose: Not Given Metformin HCl (Glucophage) 850 mg PO BID [facility] Last Admin: 10/26/17 09:23 Dose: Not Given Sitagliptin Phosphate (Januvia) 100 mg PO DAILY [facility] Last Admin: 10/26/17 09:23 Dose: Not Given - Labs Labs: 10/26/17 05:40 10/26/17 05:40 PT 11.3 Seconds (9.8-13.1) 10/24/17 17:45 INR 1.0 (0.9-1.2) 10/24/17 17:45 APTT 28.4 Seconds (25.6-37.1) 10/24/17 17:45
--- NOTE | 2017-10-26 13:13 | PN ---
DATE: LOCATION: In room 667. SUBJECTIVE: This is a 66-year-old female with recent uncontrolled type 2 diabetes, also with concomitant cerebral palsy and physically and mentally challenged at this time, and is being followed closely for metabolic management. Her glycemic levels are fluctuating but improved, and the glucose values have ranged from 176 to 195 and 203 mg/dL. She has a very good appetite as noted, and in fact has to be controlled because of her insensible cravings for sweets and high carb food choices. Her latest chemistry showed a BUN of 19, sodium 139, potassium 4.2, chloride 103, CO2 of 25, glucose 181 and creatinine 0.7. ASSESSMENT AND PLAN: So at this time, we will continue the triple oral hypoglycemic drug therapy as given with Januvia given as 100 mg daily and glipizide as 10 mg b.i.d., and will increase the metformin to 1000 mg b.i.d. after meals as ordered. We will titrate incrementally as indicated to optimize metabolic control. We will follow and advise accordingly. The biggest concern at this time is the fact that this 66-year-old patient is being cared for by her 95-year-old mother with dementia and frequent falling episodes also at this time, and they both actually need some kind of subacute versus long-term nursing care facility for their safety not only medically but also physically, and also for home management thereof. The mother is very resistant and reluctant at this time for any kind of long-term care recommendations despite elective bedside discussion for the safety of the patient and her safety too. Shani Gay MD
--- NOTE | 2017-10-26 19:07 | CP.PCM.PN ---
Subjective - Date & Time of Evaluation Date of Evaluation: 10/26/17 Time of Evaluation: 22:22 - Subjective Subjective: Above noted Objective - Vital Signs/Intake and Output Vital Signs (last 24 hours): Temp Pulse Resp BP Pulse Ox 98.3 F 82 18 152/93 H 94 L 10/26/17 16:14 10/26/17 16:14 10/26/17 16:14 10/26/17 16:14 10/26/17 16:14 - Medications Medications: Current Medications Atorvastatin Calcium (Lipitor) 10 mg PO HS [facility] Last Admin: 10/25/17 22:04 Dose: 10 mg Cholecalciferol (Vitamin D) 2,000 iu PO DAILY [facility] Last Admin: 10/26/17 09:23 Dose: Not Given Enalapril Maleate (Vasotec) 10 mg PO DAILY [facility] Last Admin: 10/26/17 17:58 Dose: 10 mg Enoxaparin Sodium (Lovenox) 40 mg SC DAILY [facility] PRN Reason: Protocol Last Admin: 10/26/17 09:23 Dose: Not Given Glipizide (Glucotrol Xl) 10 mg PO BID [facility] Last Admin: 10/26/17 17:58 Dose: 10 mg Insulin Human Regular (Humulin R) 0 units SC [facility] PRN Reason: Protocol Last Admin: 10/26/17 17:33 Dose: Not Given Metformin HCl (Glucophage) 1,000 mg PO BID [facility] Last Admin: 10/26/17 17:58 Dose: 1,000 mg Sitagliptin Phosphate (Januvia) 100 mg PO DAILY [facility] Last Admin: 10/26/17 17:58 Dose: 100 mg - Labs Labs: 10/26/17 05:40 10/26/17 05:40 PT 11.3 Seconds (9.8-13.1) 10/24/17 17:45 INR 1.0 (0.9-1.2) 10/24/17 17:45 APTT 28.4 Seconds (25.6-37.1) 10/24/17 17:45 - Respiratory Exam Respiratory Exam: NORMAL BREATHING PATTERN - Cardiovascular Exam Cardiovascular Exam: REGULAR RHYTHM - GI/Abdominal Exam GI & Abdominal Exam: Normal Bowel Sounds Assessment and Plan - Assessment and Plan (Free Text) Assessment: Recurrent falls Cerebral Palsy Neurology HTN NIDDM Cont meds Endo cardiology Chronic sinobronchial dx Pulmonary
[2017-10-27] MEDS: Insulin Regular 100 units/ml SC SCH ×4 (06:31→21:55)
[2017-10-27] MEDS: GlipiZIDE 10 mg SR Tab PO SCH ×2 (08:14→16:33)
[2017-10-27] MEDS: Enoxaparin 40 mg Syringe SC SCH (08:20)
--- NOTE | 2017-10-27 12:27 | CP.PCM.PN ---
Subjective - Date & Time of Evaluation Date of Evaluation: 10/27/17 Time of Evaluation: 12:24 - Subjective Subjective: Ms. Stevenson was seen and examined at the bedside. She is alert, oriented in all spheres. She states that both her and her mother would like to go home. I explained the things that need to be work up first especially with the social science professor before they can go home. She denies any headache, dizziness, lightheadedness, nausea, or vomiting. She remains on 1;1 sitter for patient safety. Objective - Vital Signs/Intake and Output Vital Signs (last 24 hours): Temp Pulse Resp BP Pulse Ox 98.4 F 85 20 105/71 96 10/27/17 08:07 10/27/17 08:07 10/27/17 08:07 10/27/17 08:07 10/27/17 08:07 - Medications Medications: Current Medications Atorvastatin Calcium (Lipitor) 10 mg PO HS [facility] Last Admin: 10/26/17 21:39 Dose: 10 mg Cholecalciferol (Vitamin D) 2,000 iu PO DAILY [facility] Last Admin: 10/27/17 08:13 Dose: 2,000 iu Enalapril Maleate (Vasotec) 10 mg PO DAILY [facility] Last Admin: 10/27/17 08:13 Dose: 10 mg Enoxaparin Sodium (Lovenox) 40 mg SC DAILY [facility] PRN Reason: Protocol Last Admin: 10/27/17 08:20 Dose: Not Given Glipizide (Glucotrol Xl) 10 mg PO BID [facility] Last Admin: 10/27/17 08:14 Dose: 10 mg Insulin Human Regular (Humulin R) 0 units SC [facility] PRN Reason: Protocol Last Admin: 10/27/17 06:31 Dose: Not Given Metformin HCl (Glucophage) 1,000 mg PO BID [facility] Last Admin: 10/27/17 08:14 Dose: 1,000 mg Sitagliptin Phosphate (Januvia) 100 mg PO DAILY [facility] Last Admin: 10/27/17 08:14 Dose: 100 mg - Labs Labs: 10/26/17 05:40 10/26/17 05:40 PT 11.3 Seconds (9.8-13.1) 10/24/17 17:45 INR 1.0 (0.9-1.2) 10/24/17 17:45 APTT 28.4 Seconds (25.6-37.1) 10/24/17 17:45 - Constitutional Appears: No Acute Distress, Unkempt - Head Exam Head Exam: ATRAUMATIC - Neurological Exam Neurological Exam: Alert, Awake Neuro motor strength exam: Left Upper Extremity: 5, Right Upper Extremity: 5, Left Lower Extremity: 5, Right Lower Extremity: 5 Additional comments: Neurological unchanged from previous examination. Assessment and Plan (1) Cerebral palsy Assessment & Plan: Case discussed with Dr. Tucker, continue all current medical, physical, and occupational therapies. There is no new recommendation from neurology. Status: Chronic
--- NOTE | 2017-10-27 21:13 | CP.PCM.PN ---
Subjective - Date & Time of Evaluation Date of Evaluation: 10/27/17 Time of Evaluation: 22:22 - Subjective Subjective: No change in status Objective - Vital Signs/Intake and Output Vital Signs (last 24 hours): Temp Pulse Resp BP Pulse Ox 98.3 F 81 18 119/77 95 10/27/17 16:38 10/27/17 16:38 10/27/17 16:38 10/27/17 16:38 10/27/17 16:38 - Medications Medications: Current Medications Atorvastatin Calcium (Lipitor) 10 mg PO HS [facility] Last Admin: 10/26/17 21:39 Dose: 10 mg Cholecalciferol (Vitamin D) 2,000 iu PO DAILY [facility] Last Admin: 10/27/17 08:13 Dose: 2,000 iu Enalapril Maleate (Vasotec) 10 mg PO DAILY [facility] Last Admin: 10/27/17 08:13 Dose: 10 mg Enoxaparin Sodium (Lovenox) 40 mg SC DAILY [facility] PRN Reason: Protocol Last Admin: 10/27/17 08:20 Dose: Not Given Glipizide (Glucotrol Xl) 10 mg PO BID [facility] Last Admin: 10/27/17 16:33 Dose: 10 mg Insulin Human Regular (Humulin R) 0 units SC [facility] PRN Reason: Protocol Last Admin: 10/27/17 16:32 Dose: Not Given Metformin HCl (Glucophage) 1,000 mg PO BID [facility] Last Admin: 10/27/17 16:32 Dose: 1,000 mg Sitagliptin Phosphate (Januvia) 100 mg PO DAILY [facility] Last Admin: 10/27/17 08:14 Dose: 100 mg - Labs Labs: 10/26/17 05:40 10/26/17 05:40 PT 11.3 Seconds (9.8-13.1) 10/24/17 17:45 INR 1.0 (0.9-1.2) 10/24/17 17:45 APTT 28.4 Seconds (25.6-37.1) 10/24/17 17:45 - Respiratory Exam Respiratory Exam: NORMAL BREATHING PATTERN - Cardiovascular Exam Cardiovascular Exam: REGULAR RHYTHM - GI/Abdominal Exam GI & Abdominal Exam: Normal Bowel Sounds Assessment and Plan - Assessment and Plan (Free Text) Assessment: Recurrent falls Cerebral Palsy Neurology HTN NIDDM Cont meds Endo cardiology Chronic sinobronchial dx Pulmonary WBC ?? repeat
--- NOTE | 2017-10-27 22:09 | PN ---
DATE: ENDOCRINOLOGY FOLLOWUP NOTE LOCATION: Room 667. SUBJECTIVE: This is a 66-year-old female with recent uncontrolled type 2 diabetes, presenting here with frequent falling episodes and currently undergoing neurological workup at this time. She also has significant history of cerebral palsy and is actually mentally and physically challenged at this time. She is being cared for by her 95-year-old mother, who is extremely supportive with her care, but at this time is not able to carry out her motherly duties because of her increasing dementia and physical weakness and also frequent falling episodes. LABORATORY DATA: The patient's glycemic levels are fluctuating, but improved and the glucose values have ranged from 188 to 175 and 134 mg/dL. The latest chemistries include a BUN of 19, sodium 139, potassium 4.2, chloride 103, CO2 of 25, glucose 181, creatinine 0.7. ASSESSMENT AND PLAN: So, at this time, we will continue the same triple-oral hypoglycemic therapy in different combination with Januvia of the 100 mg 1000 mg b.i.d. and glipizide at 10 mg t.i.d. Lengthy discussions have been undertaken with her family and with the niece, who is the power of trial attorney, and the rn social work regarding the need for long-term care under nursing supervision of both patients, the mother and daughter, who are admitted at the same time in the same room. We will obtain serial chemistries and supplement accordingly as needed. ADDENDUM: I discussed earlier in the previous discussions, it will actually be a very unsafe discharge to home for both mother and daughter at this point in time with the reality of the aforementioned cognitive impairment of the mother with her increasing dementia and also frequent falls and the current daughter's physical and mental challenges. Shani Gay MD
[2017-10-28] MEDS: Insulin Regular 100 units/ml SC SCH ×4 (06:34→22:00)
[2017-10-28] MEDS: GlipiZIDE 10 mg SR Tab PO SCH ×2 (09:33→17:04)
[2017-10-28] MEDS: Enoxaparin 40 mg Syringe SC SCH (09:34)
--- NOTE | 2017-10-28 09:34 | CP.PCM.PN ---
Subjective - Date & Time of Evaluation Date of Evaluation: 10/28/17 Time of Evaluation: 09:32 - Subjective Subjective: Bipin Stevenson was seen and examined at the bedside. She is alert, oriented. She denies any pain or discomfort. She is on 1;1 sitter for patient safety.There was no untoward events overnight. Objective - Vital Signs/Intake and Output Vital Signs (last 24 hours): Temp Pulse Resp BP Pulse Ox 98.3 F 88 20 130/80 94 L 10/28/17 08:41 10/28/17 08:41 10/28/17 08:41 10/28/17 08:41 10/28/17 08:41 - Medications Medications: Current Medications Atorvastatin Calcium (Lipitor) 10 mg PO HS [facility] Last Admin: 10/27/17 21:14 Dose: 10 mg Cholecalciferol (Vitamin D) 2,000 iu PO DAILY [facility] Last Admin: 10/27/17 08:13 Dose: 2,000 iu Enalapril Maleate (Vasotec) 10 mg PO DAILY [facility] Last Admin: 10/27/17 08:13 Dose: 10 mg Enoxaparin Sodium (Lovenox) 40 mg SC DAILY [facility] PRN Reason: Protocol Last Admin: 10/27/17 08:20 Dose: Not Given Glipizide (Glucotrol Xl) 10 mg PO BID [facility] Last Admin: 10/27/17 16:33 Dose: 10 mg Insulin Human Regular (Humulin R) 0 units SC [facility] PRN Reason: Protocol Last Admin: 10/28/17 06:34 Dose: Not Given Metformin HCl (Glucophage) 1,000 mg PO BID [facility] Last Admin: 10/27/17 16:32 Dose: 1,000 mg Sitagliptin Phosphate (Januvia) 100 mg PO DAILY [facility] Last Admin: 10/27/17 08:14 Dose: 100 mg - Labs Labs: 10/26/17 05:40 10/26/17 05:40 PT 11.3 Seconds (9.8-13.1) 10/24/17 17:45 INR 1.0 (0.9-1.2) 10/24/17 17:45 APTT 28.4 Seconds (25.6-37.1) 10/24/17 17:45 - Constitutional Appears: Unkempt - Head Exam Head Exam: ATRAUMATIC - Neurological Exam Neurological Exam: Alert, Awake Neuro motor strength exam: Left Upper Extremity: 5, Right Upper Extremity: 5, Left Lower Extremity: 5, Right Lower Extremity: 5 Additional comments: Nuerological unchanged from previous examination. Assessment and Plan (1) Cerebral palsy Assessment & Plan: Case discussed with Dr. Tucker, continue all current medical, physical, and occupational therapies. There is no new recommendation from neurology. Status: Chronic
--- NOTE | 2017-10-28 18:01 | CP.PCM.PN ---
Subjective - Date & Time of Evaluation Date of Evaluation: 10/28/17 Time of Evaluation: 22:22 - Subjective Subjective: Multiple calls today regarding papers needed by senior web developer Objective - Vital Signs/Intake and Output Vital Signs (last 24 hours): Temp Pulse Resp BP Pulse Ox 98.5 F 93 H 19 138/87 96 10/28/17 16:04 10/28/17 16:04 10/28/17 16:04 10/28/17 16:04 10/28/17 16:25 - Medications Medications: Current Medications Atorvastatin Calcium (Lipitor) 10 mg PO HS [facility] Last Admin: 10/27/17 21:14 Dose: 10 mg Cholecalciferol (Vitamin D) 2,000 iu PO DAILY [facility] Last Admin: 10/28/17 09:34 Dose: Not Given Enalapril Maleate (Vasotec) 10 mg PO DAILY [facility] Last Admin: 10/28/17 09:34 Dose: Not Given Enoxaparin Sodium (Lovenox) 40 mg SC DAILY [facility] PRN Reason: Protocol Last Admin: 10/28/17 09:34 Dose: Not Given Glipizide (Glucotrol Xl) 10 mg PO BID [facility] Last Admin: 10/28/17 17:04 Dose: Not Given Insulin Human Regular (Humulin R) 0 units SC [facility] PRN Reason: Protocol Last Admin: 10/28/17 17:04 Dose: Not Given Metformin HCl (Glucophage) 1,000 mg PO BID [facility] Last Admin: 10/28/17 17:04 Dose: Not Given Sitagliptin Phosphate (Januvia) 100 mg PO DAILY [facility] Last Admin: 10/28/17 09:33 Dose: Not Given - Labs Labs: 10/26/17 05:40 10/26/17 05:40 PT 11.3 Seconds (9.8-13.1) 10/24/17 17:45 INR 1.0 (0.9-1.2) 10/24/17 17:45 APTT 28.4 Seconds (25.6-37.1) 10/24/17 17:45 - Respiratory Exam Respiratory Exam: NORMAL BREATHING PATTERN - Cardiovascular Exam Cardiovascular Exam: REGULAR RHYTHM - GI/Abdominal Exam GI & Abdominal Exam: Normal Bowel Sounds Assessment and Plan - Assessment and Plan (Free Text) Assessment: Recurrent falls Cerebral Palsy Neurology HTN NIDDM Cont meds Endo cardiology Chronic sinobronchial dx Pulmonary WBC ?? repeat
--- NOTE | 2017-10-28 22:56 | PN ---
DATE: ENDOCRINE FOLLOWUP NOTE LOCATION: Room 667. SUBJECTIVE: This is a 66-year-old female with recent uncontrolled type 2 diabetes, presenting here with frequent falling episodes and currently undergoing neurological workup at this time. Her glycemic levels are also fluctuating, but improved and the latest glucose have ranges from 114 to 159 and 201 mg/dL. Her latest chemistry showed BUN of 19, sodium 139, potassium 4.1, chloride 103, CO2 of 25, glucose 181 and creatinine 0.7. ,So at this time, we will continue the triple-oral hypoglycemic drug therapy as given with metformin at 1000 mg b.i.d, Januvia at 100 mg daily with glipizide at 10 mg b.i.d. before meals as ordered. We will continue also the low-dose correction scale using regular insulin as given. We will obtain serial chemistries and supplement accordingly as needed. We will follow up with you. Shani Gay MD
[2017-10-29] MEDS: Insulin Regular 100 units/ml SC SCH ×4 (07:44→22:08)
[2017-10-29] MEDS: GlipiZIDE 10 mg SR Tab PO SCH ×2 (08:28→16:36)
[2017-10-29] MEDS: Enoxaparin 40 mg Syringe SC SCH (08:33)
--- NOTE | 2017-10-29 18:56 | PN ---
DATE: ENDOCRINOLOGY FOLLOWUP NOTE LOCATION: Room #667. This is a 66-year-old female with known history of type 2 diabetes and hypertension, presenting here with frequent falling episodes and currently undergoing neurological workup and physical therapy there of and is being followed closely for metabolic management. Her glycemic levels are fluctuating. The patient has constant hyperphagia and constant desire to eat whatever is given to the patient at this time. Her glucose values are ranging from 94 to 188 and 201 mg/dL. The bedtime glucose was 114-159 mg/dL. Her latest chemistry showed a BUN of 19, sodium 139, potassium 4.2, chloride 103, CO2 25, glucose 181, creatinine 0.7. So, at this time, we will continue the triple oral hypoglycemic therapy as given with metformin as 1000 mg b.i.d. and glipizide as 10 mg b.i.d. with Januvia 100 mg once daily as ordered. We will continue the low-dose correction scale using regular insulin as given. We will titrate incrementally as indicated to optimize metabolic control. We will follow. Shani Gay MD
--- NOTE | 2017-10-29 22:52 | CP.PCM.PN ---
Subjective - Date & Time of Evaluation Date of Evaluation: 10/29/17 Time of Evaluation: 22:22 - Subjective Subjective: D/W cousin POA Objective - Vital Signs/Intake and Output Vital Signs (last 24 hours): Temp Pulse Resp BP Pulse Ox 97.2 F L 108 H 20 127/83 95 10/29/17 16:10 10/29/17 16:10 10/29/17 16:10 10/29/17 16:10 10/29/17 16:10 - Medications Medications: Current Medications Atorvastatin Calcium (Lipitor) 10 mg PO HS [facility] Last Admin: 10/29/17 21:57 Dose: Not Given Cholecalciferol (Vitamin D) 2,000 iu PO DAILY [facility] Last Admin: 10/29/17 08:28 Dose: 2,000 iu Enalapril Maleate (Vasotec) 10 mg PO DAILY [facility] Last Admin: 10/29/17 08:27 Dose: 10 mg Enoxaparin Sodium (Lovenox) 40 mg SC DAILY [facility] PRN Reason: Protocol Last Admin: 10/29/17 08:33 Dose: Not Given Glipizide (Glucotrol Xl) 10 mg PO BID [facility] Last Admin: 10/29/17 16:36 Dose: 10 mg Insulin Human Regular (Humulin R) [address] [facility] PRN Reason: Protocol Last Admin: 10/29/17 22:08 Dose: Not Given Metformin HCl (Glucophage) 1,000 mg PO BID [facility] Last Admin: 10/29/17 16:36 Dose: 1,000 mg Sitagliptin Phosphate (Januvia) 100 mg PO DAILY [facility] Last Admin: 10/29/17 08:28 Dose: 100 mg - Labs Labs: 10/26/17 05:40 10/26/17 05:40 PT 11.3 Seconds (9.8-13.1) 10/24/17 17:45 INR 1.0 (0.9-1.2) 10/24/17 17:45 APTT 28.4 Seconds (25.6-37.1) 10/24/17 17:45 - Respiratory Exam Respiratory Exam: NORMAL BREATHING PATTERN - Cardiovascular Exam Cardiovascular Exam: REGULAR RHYTHM - GI/Abdominal Exam GI & Abdominal Exam: Normal Bowel Sounds Assessment and Plan - Assessment and Plan (Free Text) Assessment: Diposition Family involved Recurrent falls Cerebral Palsy Neurology HTN NIDDM Cont meds Endo cardiology Chronic sinobronchial dx Pulmonary WBC ?? repeat
[2017-10-30] MEDS: Insulin Regular 100 units/ml SC SCH ×4 (09:50→22:00)
[2017-10-30] MEDS: GlipiZIDE 10 mg SR Tab PO SCH ×2 (09:50→17:39)
[2017-10-30] MEDS: Enoxaparin 40 mg Syringe SC SCH (09:51)
[2017-10-30] MEDS ORDERED: Glucagon Recombinant 1 mg Inj IM PRN (11:44)
[2017-10-30] MEDS ORDERED: Dextrose 50% SYRINGE Inj (50 ml) IV PRN (11:44)
--- NOTE | 2017-10-30 15:31 | CP.PCM.PN ---
Subjective - Date & Time of Evaluation Date of Evaluation: 10/30/17 Time of Evaluation: 22:22 - Subjective Subjective: No change in status Objective - Vital Signs/Intake and Output Vital Signs (last 24 hours): Temp Pulse Resp BP Pulse Ox 97.2 F L 108 H 20 127/83 95 10/29/17 16:10 10/29/17 16:10 10/29/17 16:10 10/29/17 16:10 10/29/17 16:10 - Medications Medications: Current Medications Atorvastatin Calcium (Lipitor) 10 mg PO HS [facility] Last Admin: 10/29/17 21:57 Dose: Not Given Cholecalciferol (Vitamin D) 2,000 iu PO DAILY [facility] Last Admin: 10/30/17 09:52 Dose: Not Given Dextrose (Dextrose 50% Inj) 0 ml IV STAT PRN; Protocol PRN Reason: Hypoglycemia Protocol Dextrose (Glutose 15) 0 gm PO ONCE PRN; Protocol PRN Reason: Hypoglycemia Protocol Enalapril Maleate (Vasotec) 10 mg PO DAILY [facility] Last Admin: 10/30/17 09:51 Dose: Not Given Glipizide (Glucotrol Xl) 10 mg PO BID [facility] Last Admin: 10/30/17 09:50 Dose: Not Given Glucagon (Glucagen Diagnostic Kit) 0 mg IM STAT PRN; Protocol PRN Reason: Hypoglycemia Protocol Insulin Human Regular (Humulin R) 0 units SC [facility] PRN Reason: Protocol Last Admin: 10/30/17 13:37 Dose: Not Given Metformin HCl (Glucophage) 1,000 mg PO BID [facility] Last Admin: 10/30/17 09:50 Dose: Not Given Sitagliptin Phosphate (Januvia) 100 mg PO DAILY [facility] Last Admin: 10/30/17 09:51 Dose: Not Given - Labs Labs: 10/26/17 05:40 10/26/17 05:40 PT 11.3 Seconds (9.8-13.1) 10/24/17 17:45 INR 1.0 (0.9-1.2) 10/24/17 17:45 APTT 28.4 Seconds (25.6-37.1) 10/24/17 17:45 - Respiratory Exam Respiratory Exam: NORMAL BREATHING PATTERN - Cardiovascular Exam Cardiovascular Exam: REGULAR RHYTHM - GI/Abdominal Exam GI & Abdominal Exam: Normal Bowel Sounds Assessment and Plan - Assessment and Plan (Free Text) Assessment: Disposition Family and logistics research engineer involved Recurrent falls Cerebral Palsy Neurology NIDDM A1c 8.4 Cont meds Endo Chronic sinobronchial dx Pulmonary WBC ?? repeat
--- NOTE | 2017-10-30 21:23 | PN ---
DATE: ENDOCRINOLOGY FOLLOWUP NOTE LOCATION: Room 667. SUBJECTIVE: This is a 66-year-old female with recent uncontrolled type 2 diabetes, currently on a triple oral hypoglycemic drug regimen and is now being followed closely for metabolic management. She has had frequent falling episodes and currently undergoing neurological workup at this time on the background of cerebral palsy. She also is mentally and physically challenged at this time with a 95-year-old mother who is very supportive of her care but is now having progressive dementia and frequent lapses of forgetfulness and also frequent falling episodes. Her latest glucose levels are ranging from 180 to 228 and 170 mg/dL. So, at this time, we will continue the same oral hypoglycemic drug combination with metformin at 1000 mg b.i.d. and glipizide at 10 mg t.i.d. with Januvia at 100 mg daily as ordered. We will obtain serial chemistries and supplement accordingly as needed. We will follow. Shani Gay MD
[2017-10-31] MEDS: Insulin Regular 100 units/ml SC SCH ×4 (07:16→21:42)
[2017-10-31] MEDS: GlipiZIDE 10 mg SR Tab PO SCH ×2 (08:57→17:08)
--- NOTE | 2017-10-31 14:54 | CP.PCM.PN ---
Subjective - Date & Time of Evaluation Date of Evaluation: 10/31/17 Time of Evaluation: 14:52 - Subjective Subjective: Ms. Stevenson was seen and examined at the bedside. She is alert, oriented. She denies any headache, dizziness, weakness, nausea, or vomiting. She claims of having good appetite and was saving her extra food for other patients to consume. She remains on 1:1 sitter for patient safety. Objective - Vital Signs/Intake and Output Vital Signs (last 24 hours): Temp Pulse Resp BP Pulse Ox 98.2 F 80 19 155/81 H 95 10/31/17 00:00 10/31/17 00:00 10/31/17 00:00 10/31/17 00:00 10/31/17 00:00 - Medications Medications: Current Medications Atorvastatin Calcium (Lipitor) 10 mg PO HS [facility] Last Admin: 10/30/17 22:07 Dose: 10 mg Cholecalciferol (Vitamin D) 2,000 iu PO DAILY [facility] Last Admin: 10/31/17 08:57 Dose: Not Given Dextrose (Dextrose 50% Inj) 0 ml IV STAT PRN; Protocol PRN Reason: Hypoglycemia Protocol Dextrose (Glutose 15) 0 gm PO ONCE PRN; Protocol PRN Reason: Hypoglycemia Protocol Enalapril Maleate (Vasotec) 10 mg PO DAILY [facility] Last Admin: 10/31/17 08:57 Dose: Not Given Glipizide (Glucotrol Xl) 10 mg PO BID [facility] Last Admin: 10/31/17 08:57 Dose: Not Given Glucagon (Glucagen Diagnostic Kit) 0 mg IM STAT PRN; Protocol PRN Reason: Hypoglycemia Protocol Insulin Human Regular (Humulin R) 0 units SC [facility]S [facility] PRN Reason: Protocol Last Admin: 10/31/17 11:58 Dose: Not Given Metformin HCl (Glucophage) 1,000 mg PO BID [facility] Last Admin: 10/31/17 08:57 Dose: Not Given Sitagliptin Phosphate (Januvia) 100 mg PO DAILY [facility] Last Admin: 10/31/17 08:57 Dose: Not Given - Labs Labs: 10/26/17 05:40 10/26/17 05:40 PT 11.3 Seconds (9.8-13.1) 10/24/17 17:45 INR 1.0 (0.9-1.2) 10/24/17 17:45 APTT 28.4 Seconds (25.6-37.1) 10/24/17 17:45 - Constitutional Appears: No Acute Distress - Head Exam Head Exam: ATRAUMATIC - Neurological Exam Neurological Exam: Alert, Awake, Oriented x3 Neuro motor strength exam: Left Upper Extremity: 5, Right Upper Extremity: 5, Left Lower Extremity: 5, Right Lower Extremity: 5 Additional comments: Neurological unchanged from previous examination. Assessment and Plan (1) Cerebral palsy Assessment & Plan: Case discussed with Dr. Tucker, continue all current medical, physical, and occupational therapies. There is no new recommendation from neurology. Status: Chronic
--- NOTE | 2017-10-31 21:07 | CP.PCM.PN ---
Subjective - Date & Time of Evaluation Date of Evaluation: 10/31/17 Time of Evaluation: 22:22 - Subjective Subjective: Above noted Objective - Vital Signs/Intake and Output Vital Signs (last 24 hours): Temp Pulse Resp BP Pulse Ox 98.5 F 97 H 20 130/100 H 96 10/31/17 16:34 10/31/17 16:34 10/31/17 16:34 10/31/17 16:34 10/31/17 16:34 - Medications Medications: Current Medications Atorvastatin Calcium (Lipitor) 10 mg PO HS [facility] Last Admin: 10/30/17 22:07 Dose: 10 mg Cholecalciferol (Vitamin D) 2,000 iu PO DAILY [facility] Last Admin: 10/31/17 17:09 Dose: 2,000 iu Dextrose (Dextrose 50% Inj) 0 ml IV STAT PRN; Protocol PRN Reason: Hypoglycemia Protocol Dextrose (Glutose 15) 0 gm PO ONCE PRN; Protocol PRN Reason: Hypoglycemia Protocol Enalapril Maleate (Vasotec) 10 mg PO DAILY [facility] Last Admin: 10/31/17 17:09 Dose: 10 mg Glipizide (Glucotrol Xl) 10 mg PO BID [facility] Last Admin: 10/31/17 17:08 Dose: 10 mg Glucagon (Glucagen Diagnostic Kit) 0 mg IM STAT PRN; Protocol PRN Reason: Hypoglycemia Protocol Insulin Human Regular (Humulin R) 0 units SC ACHS [facility] PRN Reason: Protocol Last Admin: 10/31/17 17:08 Dose: 3 units Metformin HCl (Glucophage) 1,000 mg PO BID [facility] Last Admin: 10/31/17 17:07 Dose: 1,000 mg Sitagliptin Phosphate (Januvia) 100 mg PO DAILY [facility] Last Admin: 10/31/17 17:10 Dose: 100 mg - Labs Labs: 10/26/17 05:40 10/26/17 05:40 PT 11.3 Seconds (9.8-13.1) 10/24/17 17:45 INR 1.0 (0.9-1.2) 10/24/17 17:45 APTT 28.4 Seconds (25.6-37.1) 10/24/17 17:45 - Respiratory Exam Respiratory Exam: NORMAL BREATHING PATTERN - Cardiovascular Exam Cardiovascular Exam: REGULAR RHYTHM - GI/Abdominal Exam GI & Abdominal Exam: Normal Bowel Sounds Assessment and Plan - Assessment and Plan (Free Text) Assessment: Disposition Family and senior attorney involved Recurrent falls Cerebral Palsy Neurology NIDDM A1c 8.4 Cont meds Endo Chronic sinobronchial dx Pulmonary WBC ?? repeat
[2017-11-01] MEDS: Insulin Regular 100 units/ml SC SCH ×4 (07:19→23:19)
[2017-11-01] MEDS: GlipiZIDE 10 mg SR Tab PO SCH ×2 (08:41→17:05)
--- NOTE | 2017-11-01 17:11 | CP.PCM.PN ---
Subjective - Date & Time of Evaluation Date of Evaluation: 11/01/17 Time of Evaluation: 22:22 - Subjective Subjective: Above noted Objective - Vital Signs/Intake and Output Vital Signs (last 24 hours): Temp Pulse Resp BP Pulse Ox 97.5 F L 78 18 107/76 95 11/01/17 08:30 11/01/17 08:30 11/01/17 08:30 11/01/17 08:30 11/01/17 08:30 - Medications Medications: Current Medications Atorvastatin Calcium (Lipitor) 10 mg PO HS [facility] Last Admin: 10/31/17 21:43 Dose: 10 mg Cholecalciferol (Vitamin D) 2,000 iu PO DAILY [facility] Last Admin: 11/01/17 08:41 Dose: 2,000 iu Dextrose (Dextrose 50% Inj) 0 ml IV STAT PRN; Protocol PRN Reason: Hypoglycemia Protocol Dextrose (Glutose 15) 0 gm PO ONCE PRN; Protocol PRN Reason: Hypoglycemia Protocol Enalapril Maleate (Vasotec) 10 mg PO DAILY [facility] Last Admin: 11/01/17 08:41 Dose: 10 mg Glipizide (Glucotrol Xl) 10 mg PO BID [facility] Last Admin: 11/01/17 17:05 Dose: Not Given Glucagon (Glucagen Diagnostic Kit) 0 mg IM STAT PRN; Protocol PRN Reason: Hypoglycemia Protocol Insulin Human Regular (Humulin R) 0 units SC ACHS [facility] PRN Reason: Protocol Last Admin: 11/01/17 16:45 Dose: Not Given Metformin HCl (Glucophage) 1,000 mg PO BID [facility] Last Admin: 11/01/17 17:05 Dose: Not Given Sitagliptin Phosphate (Januvia) 100 mg PO DAILY [facility] Last Admin: 11/01/17 08:41 Dose: 100 mg - Labs Labs: 10/26/17 05:40 10/26/17 05:40 PT 11.3 Seconds (9.8-13.1) 10/24/17 17:45 INR 1.0 (0.9-1.2) 10/24/17 17:45 APTT 28.4 Seconds (25.6-37.1) 10/24/17 17:45 - Respiratory Exam Respiratory Exam: NORMAL BREATHING PATTERN - Cardiovascular Exam Cardiovascular Exam: REGULAR RHYTHM - GI/Abdominal Exam GI & Abdominal Exam: Normal Bowel Sounds Assessment and Plan - Assessment and Plan (Free Text) Assessment: Disposition Family and litigation attorney associate involved Recurrent falls Cerebral Palsy Neurology NIDDM A1c 8.4 Cont meds Endo Chronic sinobronchial dx Pulmonary WBC ?? repeat
[2017-11-02] MEDS: Insulin Regular 100 units/ml SC SCH ×4 (07:18→22:51)
[2017-11-02 07:35] LABS: BASO # 0.1 K/uL (0.0-0.2); BASO % 0.7 % (0.0-2.0); EOS # 0.1 K/uL (0.0-0.7); EOS % 0.7 % (0.0-4.0); HEMATOCRIT 42.2 % (34.0-47.0); LYMPH # 3.2 K/uL (1.0-4.3); LYMPH % 22.6 % (20.0-40.0); MEAN CELL VOLUME 90.2 fl (81.0-99.0); MEAN CORPUSCULAR HEMOGLOBIN 29.6 pg (27.0-31.0); MEAN CORPUSCULAR HGB CONC 32.8 g/dL (33.0-37.0); MEAN PLATELET VOLUME 8.3 fl (7.2-11.7); MONO # 1.1 K/uL (0.0-0.8); MONO % 7.8 % (0.0-10.0); NEUT # 9.5 K/uL (1.8-7.0); NEUT % 68.2 % (50.0-75.0); NRBC % 0.1 % (0.0-0.0); RED CELL DISTRIBUTION WIDTH 13.4 % (11.5-14.5)
[2017-11-02 07:53] LABS: ALB/GLOB RATIO 1.4 (1.0-2.1); ALKALINE PHOSPHATASE 85 U/L (38-126); ALT/SGPT 57 U/L (9-52); AST/SGOT 25 U/L (14-36); BILIRUBIN,TOTAL 0.8 mg/dl (0.2-1.3); BLOOD UREA NITROGEN 32 mg/dl (7-17); CALCIUM 9.9 mg/dL (8.4-10.2); CARBON DIOXIDE 26 mmol/L (22-30); CHLORIDE 100 mmol/L (98-107); GFR AFRICAN-AMERICAN > 60; GLUCOSE,RANDOM 187 mg/dL (65-105); POTASSIUM 4.4 MMOL/L (3.6-5.0); SODIUM 138 mmol/l (132-148); TOTAL PROTEIN 7.6 G/DL (6.3-8.2)
[2017-11-02] MEDS: GlipiZIDE 10 mg SR Tab PO SCH ×3 (08:18→17:21)
--- NOTE | 2017-11-02 09:52 | CP.PCM.PN ---
Subjective - Date & Time of Evaluation Date of Evaluation: 11/02/17 Time of Evaluation: 09:50 - Subjective Subjective: Ms. Stevenson was seen and examined at the bedside. She is alert, oriented. She denies any discomfort, headache, dizziness, lightheadedness, nausea, or vomiting.She remains on 1:1 sitter for patient safety. Objective - Vital Signs/Intake and Output Vital Signs (last 24 hours): Temp Pulse Resp BP Pulse Ox 98.4 F 82 18 108/74 96 11/02/17 08:40 11/02/17 08:40 11/02/17 08:40 11/02/17 08:40 11/02/17 08:40 - Medications Medications: Current Medications Atorvastatin Calcium (Lipitor) 10 mg PO HS [facility] Last Admin: 11/01/17 21:46 Dose: 10 mg Cholecalciferol (Vitamin D) 2,000 iu PO DAILY [facility] Last Admin: 11/02/17 08:17 Dose: 2,000 iu Dextrose (Dextrose 50% Inj) 0 ml IV STAT PRN; Protocol PRN Reason: Hypoglycemia Protocol Dextrose (Glutose 15) 0 gm PO ONCE PRN; Protocol PRN Reason: Hypoglycemia Protocol Enalapril Maleate (Vasotec) 10 mg PO DAILY [facility] Last Admin: 11/02/17 08:18 Dose: 10 mg Glipizide (Glucotrol Xl) 10 mg PO BID [facility] Last Admin: 11/02/17 08:18 Dose: 10 mg Glucagon (Glucagen Diagnostic Kit) 0 mg IM STAT PRN; Protocol PRN Reason: Hypoglycemia Protocol Insulin Human Regular (Humulin R) 0 units SC ACHS [facility] PRN Reason: Protocol Last Admin: 11/02/17 07:18 Dose: Not Given Metformin HCl (Glucophage) 1,000 mg PO BID [facility] Last Admin: 11/02/17 08:17 Dose: 1,000 mg Sitagliptin Phosphate (Januvia) 100 mg PO DAILY [facility] Last Admin: 11/02/17 08:17 Dose: 100 mg - Labs Labs: 11/02/17 07:05 11/02/17 07:05 PT 11.3 Seconds (9.8-13.1) 10/24/17 17:45 INR 1.0 (0.9-1.2) 10/24/17 17:45 APTT 28.4 Seconds (25.6-37.1) 10/24/17 17:45 - Constitutional Appears: No Acute Distress - Head Exam Head Exam: ATRAUMATIC - Neurological Exam Neurological Exam: Alert, Awake, Oriented x3 Neuro motor strength exam: Left Upper Extremity: 5, Right Upper Extremity: 5, Left Lower Extremity: 5, Right Lower Extremity: 5 Additional comments: Neurological unchanged from previous examination. Assessment and Plan (1) Cerebral palsy Assessment & Plan: Case discussed with Dr. Tucker, continue all current medical, physical, and occupational therapies. There is no new recommendations from neurology. Status: Chronic
--- NOTE | 2017-11-02 15:57 | PN ---
DATE: ENDOCRINOLOGY FOLLOW NOTE LOCATION: Room 653. SUBJECTIVE: This is a 66-year-old female with recent uncontrolled type 2 diabetes, presenting here with frequent falling episodes and is being followed closely for metabolic management. She also is physically and mentally challenged at this time with underlying cerebral palsy and is being cared for by her 95-year-old mother also with increasing dementia and frequent falling episodes as noted. This clearly is a very unsafe discharge home for both mother and daughter at this time. Her latest glucose values have ranged from 176 to 205 mg/dL. The latest chemistry showed BUN of 52, sodium 138, potassium 4.4, chloride of 100, CO2 of 26, glucose 187, and creatinine 0.8. So, at this time, we will continue the triple-oral hypoglycemic drug therapy as given with metformin at 1000 mg b.i.d with Januvia at 100 mg daily and glipizide given as 10 mg b.i.d. as ordered. We will continue the low-dose correction scale using regular insulin as given. We will follow and advise accordingly. Shani Gay MD
--- NOTE | 2017-11-02 18:32 | CP.PCM.PN ---
Subjective - Date & Time of Evaluation Date of Evaluation: 11/02/17 Time of Evaluation: 22:22 - Subjective Subjective: No change Objective - Vital Signs/Intake and Output Vital Signs (last 24 hours): Temp Pulse Resp BP Pulse Ox 98.2 F 97 H 20 119/76 96 11/02/17 16:12 11/02/17 16:12 11/02/17 16:12 11/02/17 16:12 11/02/17 16:12 - Medications Medications: Current Medications Atorvastatin Calcium (Lipitor) 10 mg PO HS [facility] Last Admin: 11/01/17 21:46 Dose: 10 mg Cholecalciferol (Vitamin D) 2,000 iu PO DAILY [facility] Last Admin: 11/02/17 08:17 Dose: 2,000 iu Dextrose (Dextrose 50% Inj) 0 ml IV STAT PRN; Protocol PRN Reason: Hypoglycemia Protocol Dextrose (Glutose 15) 0 gm PO ONCE PRN; Protocol PRN Reason: Hypoglycemia Protocol Enalapril Maleate (Vasotec) 10 mg PO DAILY [facility] Last Admin: 11/02/17 08:18 Dose: 10 mg Glipizide (Glucotrol Xl) 10 mg PO BID [facility] Last Admin: 11/02/17 17:21 Dose: Not Given Glucagon (Glucagen Diagnostic Kit) 0 mg IM STAT PRN; Protocol PRN Reason: Hypoglycemia Protocol Insulin Human Regular (Humulin R) 0 units SC ACHS [facility] PRN Reason: Protocol Last Admin: 11/02/17 17:14 Dose: Not Given Metformin HCl (Glucophage) 1,000 mg PO BID [facility] Last Admin: 11/02/17 17:21 Dose: Not Given Sitagliptin Phosphate (Januvia) 100 mg PO DAILY [facility] Last Admin: 11/02/17 08:17 Dose: 100 mg - Labs Labs: 11/02/17 07:05 11/02/17 07:05 PT 11.3 Seconds (9.8-13.1) 10/24/17 17:45 INR 1.0 (0.9-1.2) 10/24/17 17:45 APTT 28.4 Seconds (25.6-37.1) 10/24/17 17:45 - Respiratory Exam Respiratory Exam: NORMAL BREATHING PATTERN - Cardiovascular Exam Cardiovascular Exam: REGULAR RHYTHM - GI/Abdominal Exam GI & Abdominal Exam: Normal Bowel Sounds Assessment and Plan - Assessment and Plan (Free Text) Assessment: Disposition Family and managing attorney involved Recurrent falls Cerebral Palsy Neurology NIDDM A1c 8.4 Cont meds Endo Chronic sinobronchial dx Pulmonary WBC ?? repeat
[2017-11-03 06:35] LABS: ALB/GLOB RATIO 1.4 (1.0-2.1); ALKALINE PHOSPHATASE 76 U/L (38-126); ALT/SGPT 62 U/L (9-52); AST/SGOT 26 U/L (14-36); BILIRUBIN,TOTAL 0.7 mg/dl (0.2-1.3); BLOOD UREA NITROGEN 27 mg/dl (7-17); CALCIUM 9.3 mg/dL (8.4-10.2); CARBON DIOXIDE 24 mmol/L (22-30); CHLORIDE 102 mmol/L (98-107); GFR AFRICAN-AMERICAN > 60; GLUCOSE,RANDOM 207 mg/dL (65-105); POTASSIUM 4.1 MMOL/L (3.6-5.0); SODIUM 137 mmol/l (132-148); TOTAL PROTEIN 7.1 G/DL (6.3-8.2)
[2017-11-03 06:43] LABS: BASO # 0.1 K/uL (0.0-0.2); BASO % 0.8 % (0.0-2.0); EOS # 0.1 K/uL (0.0-0.7); EOS % 1.2 % (0.0-4.0); LYMPH # 2.7 K/uL (1.0-4.3); MEAN CELL VOLUME 90.6 fl (81.0-99.0); MEAN CORPUSCULAR HEMOGLOBIN 30.2 pg (27.0-31.0); MEAN CORPUSCULAR HGB CONC 33.3 g/dL (33.0-37.0); MEAN PLATELET VOLUME 8.5 fl (7.2-11.7); MONO # 0.9 K/uL (0.0-0.8); MONO % 7.4 % (0.0-10.0); NEUT # 7.8 K/uL (1.8-7.0); NEUT % 67.6 % (50.0-75.0); NRBC % 0.1 % (0.0-0.0); RED CELL DISTRIBUTION WIDTH 13.5 % (11.5-14.5); WHITE BLOOD COUNT 11.6 K/uL (4.8-10.8)
[2017-11-03] MEDS: Insulin Regular 100 units/ml SC SCH ×4 (07:30→22:00)
[2017-11-03] MEDS: GlipiZIDE 10 mg SR Tab PO SCH ×2 (09:21→16:39)
--- NOTE | 2017-11-03 09:52 | PN ---
ENDOCRINOLOGY FOLLOWUP NOTE DATE: ROOM: 667 SUBJECTIVE: This is a 66-year-old female with recent uncontrolled type 2 diabetes, presenting here with hypertension with accelerations and is now being followed closely for metabolic management. Her glycemic levels are fluctuating, but improved as noted. The latest glucose values have ranged from 155 to 198 and 229 mg/dL. Her latest chemistry showed BUN of 19, sodium 139, potassium 4.2, chloride 103, CO2 of 25, glucose 181 and creatinine 0.7. So, at this time, we will continue the triple oral hypoglycemic drug therapy as given with Januvia at 100 mg daily and metformin at 1000 mg b.i.d. and glipizide 10 mg b.i.d. as ordered. The patient has been refusing the lab testing, which has been ordered for the last three days as noted. We are awaiting full evaluation from Program Management Intern regarding her home situation as the patient was already mentally and physically challenged, is also being cared for by her 95-year-old mother with increasing dementia and of memory and has also had frequent falling episodes. We will obtain serial chemistries and supplement accordingly as needed. We will follow up again. Shani Gay MD
--- NOTE | 2017-11-03 10:16 | CP.PCM.PN ---
Subjective - Date & Time of Evaluation Date of Evaluation: 11/03/17 Time of Evaluation: 10:14 - Subjective Subjective: Ms. Stevenson was seen and examined at the bedside. She is alert, oriented in all spheres. She denies any pain, headache, nausea, weakness, numbness, or vomiting. She claims of consuming all breakfast. She remains on 1:1 sitter for patient safety. Objective - Vital Signs/Intake and Output Vital Signs (last 24 hours): Temp Pulse Resp BP Pulse Ox 97.5 F L 73 20 121/72 96 11/03/17 08:15 11/03/17 08:15 11/03/17 08:15 11/03/17 08:15 11/03/17 08:15 - Medications Medications: Current Medications Atorvastatin Calcium (Lipitor) 10 mg PO HS [facility] Last Admin: 11/02/17 22:51 Dose: 10 mg Cholecalciferol (Vitamin D) 2,000 iu PO DAILY [facility] Last Admin: 11/03/17 09:35 Dose: Not Given Dextrose (Dextrose 50% Inj) 0 ml IV STAT PRN; Protocol PRN Reason: Hypoglycemia Protocol Dextrose (Glutose 15) 0 gm PO ONCE PRN; Protocol PRN Reason: Hypoglycemia Protocol Enalapril Maleate (Vasotec) 10 mg PO DAILY [facility] Last Admin: 11/03/17 09:22 Dose: 10 mg Glipizide (Glucotrol Xl) 10 mg PO BID [facility] Last Admin: 11/03/17 09:21 Dose: 10 mg Glucagon (Glucagen Diagnostic Kit) 0 mg IM STAT PRN; Protocol PRN Reason: Hypoglycemia Protocol Insulin Human Regular (Humulin R) 0 units SC ACHS [facility] PRN Reason: Protocol Last Admin: 11/02/17 22:51 Dose: Not Given Metformin HCl (Glucophage) 1,000 mg PO BID [facility] Last Admin: 11/03/17 09:21 Dose: 1,000 mg Sitagliptin Phosphate (Januvia) 100 mg PO DAILY [facility] Last Admin: 11/03/17 09:21 Dose: 100 mg - Labs Labs: 11/03/17 05:30 11/03/17 05:30 PT 11.3 Seconds (9.8-13.1) 10/24/17 17:45 INR 1.0 (0.9-1.2) 10/24/17 17:45 APTT 28.4 Seconds (25.6-37.1) 10/24/17 17:45 - Constitutional Appears: No Acute Distress - Head Exam Head Exam: ATRAUMATIC - Neurological Exam Neurological Exam: Alert, Awake, CN II-XII Intact Neuro motor strength exam: Left Upper Extremity: 5, Right Upper Extremity: 5, Left Lower Extremity: 5, Right Lower Extremity: 5 Additional comments: Neurological unchanged from previous examination. Assessment and Plan (1) Cerebral palsy Assessment & Plan: Case discussed with Dr. Tucker, continue all current medical, physical, and occupational therapies. Status: Chronic
--- NOTE | 2017-11-03 18:55 | PN ---
DATE: ENDOCRINOLOGY FOLLOWUP NOTE LOCATION: Room 653. SUBJECTIVE: This is a 66-year-old female with recent uncontrolled type 2 diabetes, now being followed closely for metabolic management. Her glycemic levels are fluctuating, but much improved at this time and the latest glucose levels have ranged from 156 to 244 mg/dL. LABORATORY DATA: Her latest chemistry shows a BUN of 27, sodium 137, potassium 4.1, chloride 102, CO2 of 24, glucose 207, and creatinine 0.7. PLAN: So, at this time, we will continue the same triple-oral hypoglycemic drug therapy as given with metformin at 1000 mg b.i.d. and Glucotrol at 10 mg b.i.d. with Januvia at 100 mg once daily as ordered. We will also continue the low-dose correction scale using regular insulin as ordered. We will titrate incrementally as indicated to optimize metabolic control. This is also another difficult case of the patient being sent home because she is not only schizophrenic, but also mentally challenged with underlying cerebral palsy and is being cared for by her 95-year-old mother who also has progressive dementia and they both have been having frequent falling episodes with erratic meal patterns at home as noted. This would be really a very unsafe discharge home at this point in time for both mother and daughter. Shani Gay MD
--- NOTE | 2017-11-03 21:00 | CP.PCM.PN ---
Subjective - Date & Time of Evaluation Date of Evaluation: 11/03/17 Time of Evaluation: 22:22 - Subjective Subjective: NO d/c today? Objective - Vital Signs/Intake and Output Vital Signs (last 24 hours): Temp Pulse Resp BP Pulse Ox 97.6 F 83 20 105/64 96 11/03/17 16:01 11/03/17 16:01 11/03/17 16:01 11/03/17 16:01 11/03/17 16:01 - Medications Medications: Current Medications Atorvastatin Calcium (Lipitor) 10 mg PO HS [facility] Last Admin: 11/02/17 22:51 Dose: 10 mg Cholecalciferol (Vitamin D) 2,000 iu PO DAILY [facility] Last Admin: 11/03/17 09:35 Dose: Not Given Dextrose (Dextrose 50% Inj) 0 ml IV STAT PRN; Protocol PRN Reason: Hypoglycemia Protocol Dextrose (Glutose 15) 0 gm PO ONCE PRN; Protocol PRN Reason: Hypoglycemia Protocol Enalapril Maleate (Vasotec) 10 mg PO DAILY [facility] Last Admin: 11/03/17 09:22 Dose: 10 mg Glipizide (Glucotrol Xl) 10 mg PO BID [facility] Last Admin: 11/03/17 16:39 Dose: Not Given Glucagon (Glucagen Diagnostic Kit) 0 mg IM STAT PRN; Protocol PRN Reason: Hypoglycemia Protocol Insulin Human Regular (Humulin R) 0 units SC [facility] PRN Reason: Protocol Last Admin: 11/03/17 16:40 Dose: Not Given Metformin HCl (Glucophage) 1,000 mg PO BID [facility] Last Admin: 11/03/17 16:39 Dose: Not Given Sitagliptin Phosphate (Januvia) 100 mg PO DAILY [facility] Last Admin: 11/03/17 09:21 Dose: 100 mg - Labs Labs: 11/03/17 05:30 11/03/17 05:30 PT 11.3 Seconds (9.8-13.1) 10/24/17 17:45 INR 1.0 (0.9-1.2) 10/24/17 17:45 APTT 28.4 Seconds (25.6-37.1) 10/24/17 17:45 - Respiratory Exam Respiratory Exam: NORMAL BREATHING PATTERN - Cardiovascular Exam Cardiovascular Exam: REGULAR RHYTHM - GI/Abdominal Exam GI & Abdominal Exam: Normal Bowel Sounds Assessment and Plan - Assessment and Plan (Free Text) Assessment: Disposition Family and environmental attorney involved Recurrent falls Cerebral Palsy Neurology NIDDM A1c 8.4 Cont meds Endo Chronic sinobronchial dx Pulmonary WBC ?? repeat
[2017-11-04] MEDS: Insulin Regular 100 units/ml SC SCH ×4 (06:30→22:00)
--- NOTE | 2017-11-04 08:42 | CP.PCM.PN ---
Subjective - Date & Time of Evaluation Date of Evaluation: 11/04/17 Time of Evaluation: 08:40 - Subjective Subjective: Ms. Stevenson was seen and examined at the bedside. She is alert, oriented in all spheres. She denies any headache, dizziness, lightheadedness, nausea, or vomiting. She remains on 1:1 sitter for patient safety. There was no untoward events overnight. Objective - Vital Signs/Intake and Output Vital Signs (last 24 hours): Temp Pulse Resp BP Pulse Ox 97.2 F L 82 17 114/65 96 11/04/17 07:54 11/04/17 07:54 11/04/17 07:54 11/04/17 07:54 11/04/17 07:54 - Medications Medications: Current Medications Atorvastatin Calcium (Lipitor) 10 mg PO HS [facility] Last Admin: 11/03/17 22:00 Dose: 10 mg Cholecalciferol (Vitamin D) 2,000 iu PO DAILY [facility] Last Admin: 11/03/17 09:35 Dose: Not Given Dextrose (Dextrose 50% Inj) 0 ml IV STAT PRN; Protocol PRN Reason: Hypoglycemia Protocol Dextrose (Glutose 15) 0 gm PO ONCE PRN; Protocol PRN Reason: Hypoglycemia Protocol Enalapril Maleate (Vasotec) 10 mg PO DAILY [facility] Last Admin: 11/03/17 09:22 Dose: 10 mg Glipizide (Glucotrol Xl) 10 mg PO BID [facility] Last Admin: 11/03/17 16:39 Dose: Not Given Glucagon (Glucagen Diagnostic Kit) 0 mg IM STAT PRN; Protocol PRN Reason: Hypoglycemia Protocol Insulin Human Regular (Humulin R) 0 units SC ACHS [facility] PRN Reason: Protocol Last Admin: 11/04/17 06:30 Dose: Not Given Metformin HCl (Glucophage) 1,000 mg PO BID [facility] Last Admin: 11/03/17 16:39 Dose: Not Given Sitagliptin Phosphate (Januvia) 100 mg PO DAILY [facility] Last Admin: 11/03/17 09:21 Dose: 100 mg - Labs Labs: 11/03/17 05:30 11/03/17 05:30 PT 11.3 Seconds (9.8-13.1) 10/24/17 17:45 INR 1.0 (0.9-1.2) 10/24/17 17:45 APTT 28.4 Seconds (25.6-37.1) 10/24/17 17:45 - Constitutional Appears: No Acute Distress - Head Exam Head Exam: ATRAUMATIC - Neurological Exam Neurological Exam: Alert, Awake, CN II-XII Intact, Oriented x3 Neuro motor strength exam: Left Upper Extremity: 5, Right Upper Extremity: 5, Left Lower Extremity: 5, Right Lower Extremity: 5 Additional comments: Neurological unchanged from previous examination. Assessment and Plan (1) Cerebral palsy Assessment & Plan: Case discussed with Dr. Tucker, continue all current medical, physical, and occupational therapies. There is new recommendations from neurology. Status: Chronic
[2017-11-04] MEDS: GlipiZIDE 10 mg SR Tab PO SCH ×2 (08:51→17:00)
--- NOTE | 2017-11-04 13:55 | PN ---
DATE: ENDOCRINOLOGY FOLLOWUP LOCATION: Room #653. This is a 66-year-old female with recent uncontrolled type 2 diabetes, now being followed closely for metabolic management. Her glycemic levels are fluctuating, but much improved at this time and the latest glucose levels are ranging from 127 mg/dL to 137 mg/dL and 199 mg/dL. Her latest chemistry showed a BUN of 27, sodium 137, potassium 4.1, chloride 102, CO2 of 24, glucose 207 and creatinine 0.7. So at this time, we will continue the triple oral hypoglycemic drug therapy as given with glipizide given as 10 mg b.i.d. and metformin at 1000 mg b.i.d. with Januvia at 100 mg once daily. We will continue the low-dose correction scale using regular insulin as ordered. We are awaiting the final decision regarding long-term facility care for both the mother and the daughter as mentioned in the previous consultation notes. We will follow. Shani Gay MD
--- NOTE | 2017-11-04 17:23 | CP.PCM.PN ---
Subjective - Date & Time of Evaluation Date of Evaluation: 11/04/17 Time of Evaluation: 22:22 - Subjective Subjective: Above noted Objective - Vital Signs/Intake and Output Vital Signs (last 24 hours): Temp Pulse Resp BP Pulse Ox 98.1 F 68 20 119/56 L 99 11/04/17 16:32 11/04/17 16:32 11/04/17 16:32 11/04/17 16:32 11/04/17 16:32 - Medications Medications: Current Medications Atorvastatin Calcium (Lipitor) 10 mg PO HS [facility] Last Admin: 11/03/17 22:00 Dose: 10 mg Cholecalciferol (Vitamin D) 2,000 iu PO DAILY [facility] Last Admin: 11/04/17 08:54 Dose: Not Given Dextrose (Dextrose 50% Inj) 0 ml IV STAT PRN; Protocol PRN Reason: Hypoglycemia Protocol Dextrose (Glutose 15) 0 gm PO ONCE PRN; Protocol PRN Reason: Hypoglycemia Protocol Enalapril Maleate (Vasotec) 10 mg PO DAILY [facility] Last Admin: 11/04/17 08:52 Dose: 10 mg Glipizide (Glucotrol Xl) 10 mg PO BID [facility] Last Admin: 11/04/17 17:00 Dose: Not Given Glucagon (Glucagen Diagnostic Kit) 0 mg IM STAT PRN; Protocol PRN Reason: Hypoglycemia Protocol Insulin Human Regular (Humulin R) 0 units SC ACHS [facility] PRN Reason: Protocol Last Admin: 11/04/17 17:02 Dose: Not Given Metformin HCl (Glucophage) 1,000 mg PO BID [facility] Last Admin: 11/04/17 17:00 Dose: Not Given Sitagliptin Phosphate (Januvia) 100 mg PO DAILY [facility] Last Admin: 11/04/17 08:52 Dose: 100 mg - Labs Labs: 11/03/17 05:30 11/03/17 05:30 PT 11.3 Seconds (9.8-13.1) 10/24/17 17:45 INR 1.0 (0.9-1.2) 10/24/17 17:45 APTT 28.4 Seconds (25.6-37.1) 10/24/17 17:45 - Respiratory Exam Respiratory Exam: NORMAL BREATHING PATTERN - Cardiovascular Exam Cardiovascular Exam: REGULAR RHYTHM - GI/Abdominal Exam GI & Abdominal Exam: Normal Bowel Sounds Assessment and Plan - Assessment and Plan (Free Text) Assessment: Disposition Family and compliance attorney involved Recurrent falls Cerebral Palsy Neurology NIDDM A1c 8.4 Cont meds Endo Chronic sinobronchial dx Pulmonary WBC ?? repeat
[2017-11-05] MEDS: Insulin Regular 100 units/ml SC SCH (06:32)
[2017-11-05 08:15] VITALS: BP 120/74; PULSE 75; RESP 17; TEMP 97.2; O2SAT 98
[2017-11-05] MEDS: GlipiZIDE 10 mg SR Tab PO SCH (08:31)
--- NOTE | 2017-11-05 20:58 | CP.PCM.PN ---
Subjective - Date & Time of Evaluation Date of Evaluation: 11/05/17 Time of Evaluation: 22:22 - Subjective Subjective: Above noted Objective - Vital Signs/Intake and Output Vital Signs (last 24 hours): Temp Pulse Resp BP Pulse Ox 97.2 F L 75 17 120/74 98 11/05/17 08:15 11/05/17 08:15 11/05/17 08:15 11/05/17 08:15 11/05/17 08:15 - Labs Labs: 11/03/17 05:30 11/03/17 05:30 PT 11.3 Seconds (9.8-13.1) 10/24/17 17:45 INR 1.0 (0.9-1.2) 10/24/17 17:45 APTT 28.4 Seconds (25.6-37.1) 10/24/17 17:45 - Respiratory Exam Respiratory Exam: NORMAL BREATHING PATTERN - Cardiovascular Exam Cardiovascular Exam: REGULAR RHYTHM - GI/Abdominal Exam GI & Abdominal Exam: Normal Bowel Sounds Assessment and Plan - Assessment and Plan (Free Text) Assessment: Disposition Family and clinical educator involved Recurrent falls Cerebral Palsy Neurology NIDDM A1c 8.4 Cont meds Endo Chronic sinobronchial dx Pulmonary WBC ?? repeat
[2017-11-05] MEDS ORDERED: Insulin Detemir 100 Units/ml Inj SC SCH (22:00)
--- NOTE | 2017-11-07 09:33 | PN ---
DATE: ENDOCRINOLOGY FOLLOWUP NOTE LOCATION: Room 653. SUBJECTIVE: This is a 66-year-old female with recent uncontrolled type 2 diabetes, presenting here with frequent falling episodes and currently undergoing neurological workup and also social service's evaluation because of the patient's inability to do self-care by herself because of the current physical and mental challenges with underlying cerebral palsy. Moreover, her 95-year-old mother is also developing increasing dementia and lapses of forgetfulness and inability to self-care and now with inability to care for her physically and mentally challenged daughter. Her glycemic levels are fluctuating also because of the variability of her oral intake and the glucose levels have ranged from 123 to 227 mg/dL. We will be adding a low dose basal insulin overnight with Levemir to be given as 6 units subcu at bedtime daily to start tonight. We will titrate incrementally as indicated to optimize metabolic control. In the meantime, we will continue her triple oral hypoglycemic drug therapy with glipizide given as 10 mg b.i.d. and metformin as 1 g b.i.d. with Januvia at 100 mg once daily as ordered. We will obtain serial chemistries and supplement accordingly as needed. We will follow with you. Shani Gay MD
== END 2017-11-05 11:56 | DRG 93 ==
LOC: H.ER 16:11 → H.ERHOLD 18:54 → H.MEDSURG1 22:53
PROVIDERS: ADMIT Family Medicine Geriatric Medicine; ATTEND Family Medicine Geriatric Medicine
DX: G80.9 Cerebral palsy, unspecified (principal); E11.42 Type 2 diabetes mellitus with diabetic polyneuropathy; I11.9 Hypertensive heart disease without heart failure; E04.2 Nontoxic multinodular goiter; R29.6 Repeated falls; R62.7 Adult failure to thrive; Z79.84 Long term (current) use of oral hypoglycemic drugs; Z79.899 Other long term (current) drug therapy; J40 Bronchitis, not specified as acute or chronic; L29.9 Pruritus, unspecified; R05 Cough; R26.81 Unsteadiness on feet; R53.1 Weakness; R63.2 Polyphagia; E78.00 Pure hypercholesterolemia, unspecified; E78.5 Hyperlipidemia, unspecified; E11.65 Type 2 diabetes mellitus with hyperglycemia; Z91.81 History of falling

== ENCOUNTER 2018-03-09 09:27 | Inpatient (IN) | payer MEDICARE, OTHER ==
[2018-03-09 09:30] VITALS: BMI 30.2
[2018-03-09 10:23] LABS: BASO # 0.1 K/uL (0.0-0.2); BASO % 1.1 % (0.0-2.0); EOS % 0.4 % (0.0-4.0); HEMOGLOBIN 13.6 g/dL (12.0-16.0); LYMPH # 1.7 K/uL (1.0-4.3); LYMPH % 16.7 % (20.0-40.0); MEAN CELL VOLUME 89.9 fl (81.0-99.0); MEAN CORPUSCULAR HEMOGLOBIN 30.6 pg (27.0-31.0); MEAN PLATELET VOLUME 7.5 fl (7.2-11.7); MONO # 0.6 K/uL (0.0-0.8); MONO % 6.4 % (0.0-10.0); NEUT # 7.6 K/uL (1.8-7.0); NEUT % 75.4 % (50.0-75.0); RBC 4.45 Mil/uL (3.80-5.20); RED CELL DISTRIBUTION WIDTH 13.2 % (11.5-14.5); WHITE BLOOD COUNT 10.1 K/uL (4.8-10.8)
[2018-03-09 10:29] LABS: PROTHROMBIN TIME 11.6 Seconds (9.8-13.1)
[2018-03-09 10:30] LABS: PARTIAL THROMBOPLASTIN TIME 25.9 Seconds (25.6-37.1)
[2018-03-09 10:32] LABS: ALB/GLOB RATIO 1.3 (1.0-2.1); ALBUMIN 4.2 g/dL (3.5-5.0); ALT/SGPT 53 U/L (9-52); AST/SGOT 28 U/L (14-36); BLOOD UREA NITROGEN 15 mg/dl (7-17); CALCIUM 9.5 mg/dL (8.4-10.2); GFR AFRICAN-AMERICAN > 60; GFR NON-AFRICAN AMERICAN > 60
[2018-03-09 10:43] LABS: B-TYPE NATRIURETIC PEPTIDE 438 pg/ml (0-900)
[2018-03-09] MEDS ORDERED: Potassium Chloride 20 mEq ER Tab PO ONE ×2 (10:50→11:11)
--- NOTE | 2018-03-09 11:21 | ED PDOC ---
HPI: Psych/Substance Abuse Time Seen by Provider: 03/09/18 09:42 Chief Complaint (Nursing): Psychiatric Evaluation Chief Complaint (Provider): Psychiatric Evaluation History Per: Patient History/Exam Limitations: other (Caveat: Poor Historian) Additional Complaint(s): Ms. Soto is a 67 year old female, with a history of cerebral palsy, diabetes, and hypertension, who was brought in by homemaker and legal guardian (cousin) via EMS for agitation. Patient is refusing to take medications. Cough and congestion ongoing for 2 weeks. No falls, fever, difficulty breathing or weakness. Guardian denies psychiatric disease, but patient never formally evaluated. Lives at home with 95 year old mother who has dementia and homemaker. 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 Gay Past Medical History Reviewed: Historical Data, Nursing Documentation, Vital Signs Vital Signs: Last Vital Signs Temp 97.2 F L 03/09/18 09:30 Pulse 83 03/09/18 09:30 Resp 16 03/09/18 09:30 BP 166/93 H 03/09/18 09:30 Pulse Ox 96 03/09/18 09:30 - Medical History PMH: Bronchitis, HTN, Hypercholesterolemia Denies: Chronic Kidney Disease Other PMH: Dementia - Surgical History Surgical History: No Surg Hx - Family History Family History: States: Unknown Family Hx - Living Arrangements Living Arrangements: With Family - Social History Current smoker - smoking cessation education provided: No - Immunization History Hx Tetanus Toxoid Vaccination: No Hx Influenza Vaccination: No Hx Pneumococcal Vaccination: No - Home Medications Home Medications: Ambulatory Orders Medication Instructions Recorded Atorvastatin [Lipitor] 10 mg PO HS 10/24/17 Cholecalciferol (Vitamin D3) 2,000 unit PO DAILY 10/24/17 [Vitamin D3] Enalapril Maleate [Vasotec] 10 mg PO DAILY 10/24/17 Glipizide [Glipizide Xl] 10 mg PO BID 10/24/17 SITagliptin [Januvia] 100 mg PO DAILY 10/24/17 Atorvastatin [Lipitor] 10 mg PO HS tab 11/05/17 Cholecalciferol [Vitamin D 1000 IU] 2,000 iu PO DAILY tab 11/05/17 Enalapril Maleate [Vasotec] 10 mg PO DAILY tab 11/05/17 GlipiZIDE SR [Glucotrol XL] 10 mg PO BID tab 11/05/17 MetFORMIN [glucoPHAGE] 1,000 mg PO BID tab 11/05/17 SITagliptin [Januvia] 100 mg PO DAILY tab 11/05/17 - Allergies Allergies/Adverse Reactions: Allergies Allergy/AdvReac Type Severity Reaction Status Date / Time Penicillins Allergy RASH Verified 10/24/17 16:42 Review of Systems Review Of Systems: ROS cannot be obtained secondary to pt's inabilty to answer questions. (Caveat: Patient is poor historian) Physical Exam - Reviewed Nursing Documentation Reviewed: Yes Vital Signs Reviewed: Yes - Physical Exam Appears: Negative for: Well ((+): Mild dehydrated appearing with cerebral palsy feastures) Neck: Positive for: Normal Respiratory: Positive for: Normal Breath Sounds (Lungs clear). Negative for: Respiratory Distress Gastrointestinal/Abdominal: Negative for: Tenderness Extremity: Positive for: Normal ROM. Negative for: Swelling Neurologic/Psych: Positive for: Alert, Oriented (x 1 to name), Other (Bilateral Hypertonicity) - Laboratory Results Result Diagrams: 03/09/18 10:16 03/09/18 10:16 - ECG ECG: Positive for: Viewed By Me ECG Rhythm: Positive for: Sinus Rhythm. Negative for: ST/T Changes Rate: 66 O2 Sat by Pulse Oximetry: 96 (RA) Pulse Ox Interpretation: Normal - Radiology X-Ray: Interpreted by Me, Viewed By Me X-Ray Interpretation: No Acute Disease - Physician Consult Information Time Consulting Physican Contacted: 11:00 Physician Contacted: Jonn Medrano Medical Decision Making Medical Decision Making: Time: 09:50 Plan: - EKG - BNP - CMP - Troponin I Stat - CBC - Partial Thromboplastin Time - Prothrombin Time - Portable Chest X-Ray - Urinalysis Blood work shows hypokalemia (3.4 MMOL/L). Potassium ordered. Time: 10:50 - K-Dur 20 mEq ER Tab CXR unremarkable as read by me. 11:[address] Medrano 11:23 Patient is cleared to be admitted as per putty and patch worker to geriatric psych, but family did not bring POA. Family states will bring POA. Once POA is presented, patient will be admitted. 11:[address] Medrano 11:[address] Medrano, he can perform medical consult on floor. CXR negative EKG unremarkable medically stable for geropsych eval and admission Scribe Attestation: Documented by Husam Christianson, acting as a scribe for Tico Ferguson III, DO Provider Scribe Attestation: All medical record entries made by the Scribe were at my direction and personally dictated by me. I have reviewed the chart and agree that the record accurately reflects my personal performance of the history, physical exam, medical decision making, and the department course for this patient. I have also personally directed, reviewed, and agree with the discharge instructions and disposition. Disposition - Clinical Impression Clinical Impression: Cerebral palsy, Dementia with behavioral disturbance - Patient ED Disposition Is Patient to be Admitted: Yes Counseled Patient/Family Regarding: Studies Performed, Diagnosis, Need For Followup - Disposition Disposition Time: 12:10 Condition: FAIR - Pt Status Changed To: Hospital Disposition Of: Inpatient - Admit Certification Admit to Inpatient:: After my assessment, the patient will require hospitalization for at least two midnights. This is because of the severity of symptoms shown, intensity of services needed, and/or the medical risk in this patient being treated as an outpatient. - POA Present On Arrival: Poor Glycemic Control
[2018-03-09 12:29] LABS: SQUAMOUS EPITHIAL < 1 /hpf (0-5); URINE AMORPHOUS SEDIMENT RARE /ul (<OCC); URINE BILIRUBIN NEGATIVE (NEGATIVE); URINE BLOOD NEGATIVE (NEGATIVE); URINE CLARITY TURBID (Clear); URINE COLOR YELLOW (YELLOW); URINE GLUCOSE (UA) NEG (Normal); URINE LEUKOCYTE ESTERASE NEG Leu/uL (Negative); URINE PROTEIN 30 mg/dL (NEGATIVE); URINE UROBILINOGEN 0.2-1.0 mg/dL (0.2-1.0)
--- NOTE | 2018-03-09 13:27 | RAD ---
HISTORY: cough COMPARISON: 10/24/2017. FINDINGS: LUNGS: No active pulmonary disease. PLEURA: No significant pleural effusion identified, no pneumothorax apparent. CARDIOVASCULAR: Cardiomegaly. No radiographic findings to suggest acute or significant cardiovascular disease. OSSEOUS STRUCTURES: No significant abnormalities. VISUALIZED UPPER ABDOMEN: Normal. OTHER FINDINGS: None. IMPRESSION: No active disease. No significant interval change compared to the prior examination(s).
[2018-03-09] MEDS ORDERED: Magnesium Hydroxide Susp 30 ml UD PO PRN (13:39)
[2018-03-09] MEDS ORDERED: Alum-Mag Hydrox-Simethicone Susp (30 mL) PO PRN (13:39)
[2018-03-09] MEDS ORDERED: Bismuth Subsalicylate 262 mg/15 ml Sus (240 ml) PO PRN (13:39)
[2018-03-09 14:13] VITALS: O2SAT 96
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
--- NOTE | 2018-03-09 15:09 | CARD ---
APPROVED REPORT EKG Measurement Heart [id number] <Conclusion> Normal sinus rhythm Normal ECG
--- NOTE | 2018-03-09 16:37 | PCM.BM ---
Treatment Plan Problems - Problems identified on initial assessmt Aggression Date Initiated: 03/09/18 Time Initiated: 16:35 Assessment reference: HP Status: Active Priority: 1 Treatment assets and liabiliti Patient Assests: cooperative, good support system Patient Liabilities: medical problems, language/speech, other (mental capacity) - Milieu Protocol Maintain good personal hygiene: daily Encourage regular showers, daily Remind patient to perform daily oral care, daily Assist patient to perform ADL's Conduct patient checks and document Observation sheet: Constant Maintain personal safety: every shift Educate patient to report safety concerns to staff, every shift Monitor environment for contraband/sharps Medication safety: Monitor for expected outcome, potential side effects: every shift, Assess barriers to learning: every shift, Assess readiness for medication education: every shift Milieu Narrative: Dementia with behavioral disturbances -Admit to psychiatry unit -Individual and group therapy -Medicine consult -PT evaluation -Dietitian referral -Start Depakote 125 mg PO Daily@1700 -Disposition planning Discharge/Continuing Care - Treatment Team Participation Patient/Family/SO Statement: Dementia with behavioral disturbances -Admit to psychiatry unit -Individual and group therapy -Medicine consult -PT evaluation -Dietitian referral -Start Depakote 125 mg PO Daily@1700 -Disposition planning
[2018-03-09] MEDS: Insulin Lispro (humaLOG) 100 Units/ml Inj SC SCH (17:49)
[2018-03-09] MEDS: Divalproex 125 mg Sprinkle Capsule PO SCH (17:52)
--- NOTE | 2018-03-09 20:44 | CP.PCM.PN ---
Subjective - Date & Time of Evaluation Date of Evaluation: 03/09/18 Time of Evaluation: 22:22 - Subjective Subjective: 67 yo admitted for agitation?? Objective - Vital Signs/Intake and Output Vital Signs (last 24 hours): Temp Pulse Resp BP Pulse Ox 97.7 F 68 18 161/68 H 96 03/09/18 15:56 03/09/18 15:56 03/09/18 15:56 03/09/18 15:56 03/09/18 14:14 - Medications Medications: Current Medications Acetaminophen (Tylenol 325mg Tab) 650 mg PO Q4 PRN PRN Reason: Pain, moderate (4-7) Al Hydrox/Mg Hydrox/Simethicone (Maalox Plus 30 Ml) 30 ml PO Q4 PRN PRN Reason: Dyspepsia Atorvastatin Calcium (Lipitor) 10 mg PO HS [facility] Bismuth Subsalicylate (Pepto-Bismol) 524 mg PO Q4 PRN PRN Reason: Diarrhea Divalproex Sodium (Depakote Sprinkles) 125 mg PO BID [facility] Last Admin: 03/09/18 17:52 Dose: 125 mg Enalapril Maleate (Vasotec) 10 mg PO DAILY [facility] Insulin Human Lispro (Humalog) 0 units SC ACBD [facility] Last Admin: 03/09/18 17:49 Dose: Not Given Lorazepam (Ativan) 0.5 mg PO HS PRN PRN Reason: Insomnia Stop: 03/23/18 13:40 Lorazepam (Ativan) 0.5 mg PO Q6 PRN PRN Reason: Anixety/Agitation Stop: 03/23/18 13:40 Magnesium Hydroxide (Milk Of Magnesia) 30 ml PO HS PRN PRN Reason: Constipation Metformin HCl (Glucophage) 850 mg PO BID [facility] Last Admin: 03/09/18 18:59 Dose: 850 mg Multivitamins/Minerals (Therapeutic-M Tab) 1 tab PO DAILY [facility] Sitagliptin Phosphate (Januvia) 100 mg PO DAILY [facility] Sitagliptin Phosphate (Januvia) 100 mg PO DAILY [facility] - Labs Labs: 03/09/18 10:16 03/09/18 10:16 PT 11.6 Seconds (9.8-13.1) 03/09/18 10:16 INR 1.0 (0.9-1.2) 04/12/18 10:16 APTT 25.9 Seconds (25.6-37.1) 03/09/18 10:16 - Respiratory Exam Respiratory Exam: NORMAL BREATHING PATTERN - Cardiovascular Exam Cardiovascular Exam: REGULAR RHYTHM - GI/Abdominal Exam GI & Abdominal Exam: Normal Bowel Sounds Assessment and Plan - Assessment and Plan (Free Text) Assessment: Agitation?? Psychiatry Cerebral Palsy Recurrent falls T/C Neurology NIDDM Cont meds Endo Chronic sinobronchial dx Atopy??
--- NOTE | 2018-03-09 23:03 | PCM.BM ---
<Justen Juares - Last Filed: 03/09/18 23:01> Treatment Plan Problems - Problems identified on initial assessmt Aggression Date Initiated: 03/09/18 Time Initiated: 16:35 Assessment reference: HP Status: Active Priority: 1 Ineffective Impulse Control Date Initiated: 03/09/18 Time Initiated: 23:01 Assessment reference: NA Status: Active Treatment assets and liabiliti Patient Assests: cooperative, good support system, negotiates basic needs Patient Liabilities: medical problems, language/speech, other (mental capacity) - Milieu Protocol Maintain good personal hygiene: daily Encourage regular showers, daily Remind patient to perform daily oral care, daily Assist patient to perform ADL's Conduct patient checks and document Observation sheet: Constant Maintain personal safety: every shift Educate patient to report safety concerns to staff, every shift Monitor environment for contraband/sharps Medication safety: Monitor for expected outcome, potential side effects: every shift, Assess barriers to learning: every shift, Assess readiness for medication education: every shift Milieu Narrative: Dementia with behavioral disturbances -Admit to psychiatry unit -Individual and group therapy -Medicine consult -PT evaluation -Dietitian referral -Start Depakote 125 mg PO Daily@1700 -Disposition planning Discharge/Continuing Care - Treatment Team Participation Patient/Family/SO Statement: Dementia with behavioral disturbances -Admit to psychiatry unit -Individual and group therapy -Medicine consult -PT evaluation -Dietitian referral -Start Depakote 125 mg PO Daily@1700 -Disposition planning <Nila Vital - Last Filed: 03/10/18 08:47> - Diagnosis (1) Dementia with behavioral disturbance Status: Acute Interventions: Individual and group therapy, Psychoeducation, Medication management 03/10/18 08:47 <Emma Trejo - Last Filed: 03/10/18 15:59> Family Contact Family contact: Patient agrees to contact, Family has been contacted by patient , Telephone contact initiated by staff Family contact name: Brisa Tan (CAMILO) Family contacted how many times per week?: 2 Family contact comment: [phone] - Goals for Treatment Patient goals for treatment: Pt to be encouraged to attend activity and clinical groups 3-5x per week to identify at least 2 contributing factors to increased agitation, irritability, and aggression. Psycho-education to be provided to patient/family regarding benefits of medications and treatment adherence. Pt to be encouraged to participate in group milieu to develop effective coping skills to reduce aggression and reduce psychiatric hospitalizations. Coordinate discharge resource needs by providing referral for psychiatric treatment follow up in the community. Discharge/Continuing Care - Education Needs Education Needs: Family Medication, Family Diagnosis/Disease Process, Family Coping Skills, Family Placement options, Family Community resources, Family Uses of Medical Equipment, Family Health Practices/Safety, Family Personal Hygiene/Grooming, Family Aftercare Safety Plan, Patient Medication, Patient Diagnosis/Disease Process, Patient Coping Skills, Patient Placement options, Patient Community resources, Patient Uses of Medical Equipment, Patient Health Practices/Safety, Patient Personal Hygiene/Grooming, Patient Aftercare Safety Plan - Discharge Discharge Criteria: Tolerates medication w/o severe side effects, Free of agitation, Normal sleep pattern, Ability to care for self, Reduction of target symptoms Discharge to:: Group Home Facility - Additional Comments 03/10/18 15:58 Pt seen and discussed in team meeting. Reason for admission reviewed. Pt's social and medical issues reviewed. Medications reviewed. POA to be contact for collateral information. SW to continue to follow case. - Treatment Team Participation Discussed with Family/SO: No Was Patient/Family/SO present at Treatment Team Meeting: Yes
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
[2018-03-10 07:51] LABS: ALB/GLOB RATIO 1.3 (1.0-2.1); ALT/SGPT 53 U/L (9-52); AST/SGOT 23 U/L (14-36); BLOOD UREA NITROGEN 14 mg/dl (7-17); CALCIUM 9.3 mg/dL (8.4-10.2); GFR AFRICAN-AMERICAN > 60; GFR NON-AFRICAN AMERICAN > 60; HDL CHOLESTEROL 58 MG/DL (30-70)
[2018-03-10 08:02] LABS: LDL CHOLESTEROL 142 mg/dL (0-129)
[2018-03-10 08:08] LABS: T4 9.83 ug/dl (5.5-11.0)
[2018-03-10] MEDS: Divalproex 125 mg Sprinkle Capsule PO SCH ×4 (08:25→16:19)
[2018-03-10] MEDS: Multivitamin With Minerals Tab PO SCH ×2 (08:26→10:56)
[2018-03-10] MEDS: Insulin Lispro (humaLOG) 100 Units/ml Inj SC SCH ×2 (08:28→16:19)
--- NOTE | 2018-03-10 08:54 | CP.PCM.CON ---
History of Present Illness - History of Present Illness History of Present Illness: Pt is a 67 year old female admitted to the geropsych unit and referred to the abstract writer for evaluation. On the DRS, pt scored an overall score of 100 indicative of cognitive deficits. Pt scored in the Deficient Range on all tasks. Her ATtention, Construction, Conceptaulization, Memory and Initiation skills all fell in the DEficienrt Range. Pt also evidenced poor frustration tolerance and irritablity on evaluation. Overall 100 Attention 31 (32 wnl) construction 2 (4 wnl) Conceptualization 31 (32 wnl) Initiation 26 (32 wnl) Memory 10> (18 wnl) Signfiicant deficits noted, Thankk you for this referral, Dr. Garcia Past Patient History - Past Medical History & Family History Past Medical History?: Yes - Past Social History Smoking Status: Never Smoked - CARDIAC Hx Cardiac Disorders: Yes Hx Hypercholesterolemia: Yes Hx Hypertension: Yes - PULMONARY Hx Respiratory Disorders: Yes Hx Bronchitis: Yes - NEUROLOGICAL HX Cerebrovascular Accident: No Hx Seizures: No - HEENT Hx HEENT Problems: Yes Other/Comment: wears corrective glasses - RENAL Hx Chronic Kidney Disease: No - ENDOCRINE/METABOLIC Hx Endocrine Disorders: Yes Hx Diabetes Mellitus Type 2: Yes - HEMATOLOGICAL/ONCOLOGICAL Hx Blood Disorders: No Hx Cancer: No Hx Human Immunodeficiency Virus (HIV): No - INTEGUMENTARY Hx Dermatological Problems: Yes Other/Comment: pruritus with diffuse excoriations, right neck & lower extremities - MUSCULOSKELETAL/RHEUMATOLOGICAL Hx Falls: Yes (few months ago) Hx Unsteady Gait: Yes - GASTROINTESTINAL Hx Gastrointestinal Disorders: No - GENITOURINARY/GYNECOLOGICAL Hx Genitourinary Disorders: No Hx Sexually Transmitted Disorders: No - PSYCHIATRIC Hx Substance Use: No - SURGICAL HISTORY Hx Surgeries: No - ANESTHESIA Hx Anesthesia: No Hx Anesthesia Reactions: No Hx Malignant Hyperthermia: No Meds Allergies/Adverse Reactions: Allergies Allergy/AdvReac Type Severity Reaction Status Date / Time Penicillins Allergy RASH Verified 10/24/17 16:42 - Medications Medications: Current Medications Acetaminophen (Tylenol 325mg Tab) 650 mg PO Q4 PRN PRN Reason: Pain, moderate (4-7) Al Hydrox/Mg Hydrox/Simethicone (Maalox Plus 30 Ml) 30 ml PO Q4 PRN PRN Reason: Dyspepsia Atorvastatin Calcium (Lipitor) 10 mg PO HS [facility] Last Admin: 03/09/18 21:06 Dose: 10 mg Bismuth Subsalicylate (Pepto-Bismol) 524 mg PO Q4 PRN PRN Reason: Diarrhea Divalproex Sodium (Depakote Sprinkles) 125 mg PO BID [facility] Last Admin: 03/10/18 08:25 Dose: 125 mg Enalapril Maleate (Vasotec) 10 mg PO DAILY [facility] Last Admin: 03/10/18 08:26 Dose: 10 mg Insulin Human Lispro (Humalog) 0 units SC ACBD [facility] Last Admin: 03/10/18 08:28 Dose: Not Given Lorazepam (Ativan) 0.5 mg PO HS PRN PRN Reason: Insomnia Stop: 03/23/18 13:40 Lorazepam (Ativan) 0.5 mg PO Q6 PRN PRN Reason: Anixety/Agitation Stop: 03/23/18 13:40 Last Admin: 03/09/18 20:50 Dose: 0.5 mg Magnesium Hydroxide (Milk Of Magnesia) 30 ml PO HS PRN PRN Reason: Constipation Metformin HCl (Glucophage) 850 mg PO BID [facility] Last Admin: 03/10/18 08:25 Dose: 850 mg Multivitamins/Minerals (Therapeutic-M Tab) 1 tab PO DAILY [facility] Last Admin: 03/10/18 08:26 Dose: 1 tab Sitagliptin Phosphate (Januvia) 100 mg PO DAILY [facility] Last Admin: 03/10/18 08:26 Dose: 100 mg Results - Vital Signs Recent Vital Signs: Last Vital Signs Temp 97.1 F L 03/10/18 06:00 Pulse 60 03/10/18 06:00 Resp 18 03/10/18 06:00 BP 144/82 03/10/18 06:00 Pulse Ox 96 03/09/18 14:14 - Labs Result Diagrams: 03/09/18 10:16 03/10/18 07:29 Labs: Laboratory Results - last 24 hr 03/09/18 03/09/18 03/09/18 10:16 10:16 10:16 WBC 10.1 RBC 4.45 Hgb 13.6 Hct 40.0 MCV 89.9 MCH 30.6 MCHC 34.0 RDW 13.2 Plt Count 294 MPV 7.5 Neut % (Auto) 75.4 H Lymph % (Auto) 16.7 L [place] % (Auto) 6.4 Eos % (Auto) 0.4 Baso % (Auto) 1.1 Neut # (Auto) 7.6 H Lymph # (Auto) 1.7 [place] # (Auto) 0.6 Eos # (Auto) 0.0 Baso # (Auto) 0.1 PT 11.6 INR 1.0 APTT 25.9 Sodium 145 Potassium 3.3 L Chloride 104 Carbon Dioxide 24 Anion Gap 20 BUN 15 Creatinine 0.6 L Est GFR ( Amer) > 60 Est GFR (Non-Af Amer) > 60 POC Glucose (mg/dL) Random Glucose 174 H Calcium 9.5 Iron TIBC % Saturation Total Bilirubin 0.6 AST 28 ALT 53 H Alkaline Phosphatase 76 Troponin I < 0.0120 NT-Pro-B Natriuret Pep 438 Total Protein 7.4 Albumin 4.2 Globulin 3.3 Albumin/Globulin Ratio 1.3 Triglycerides Cholesterol LDL Cholesterol Direct HDL Cholesterol Vitamin B12 Thyroxine (T4) TSH 3rd Generation Urine Color Urine Clarity Urine pH Ur Specific [place] Urine Protein Urine Glucose (UA) Urine Ketones Urine Blood Urine Nitrate Urine Bilirubin Urine Urobilinogen Ur Leukocyte Esterase Urine RBC (Auto) Urine Microscopic WBC Ur Squamous Epith Cells Amorphous Sediment Urine Yeast (Budding) 03/09/18 03/09/18 03/09/18 11:50 16:25 20:14 WBC RBC Hgb Hct MCV MCH MCHC RDW Plt Count MPV Neut % (Auto) Lymph % (Auto) [place] % (Auto) Eos % (Auto) Baso % (Auto) Neut # (Auto) Lymph # (Auto) [place] # (Auto) Eos # (Auto) Baso # (Auto) PT INR APTT Sodium Potassium Chloride Carbon Dioxide Anion Gap BUN Creatinine Est GFR ( Amer) Est GFR (Non-Af Amer) POC Glucose (mg/dL) 156 H 164 H Random Glucose Calcium Iron TIBC % Saturation Total Bilirubin AST ALT Alkaline Phosphatase Troponin I NT-Pro-B Natriuret Pep Total Protein Albumin Globulin Albumin/Globulin Ratio Triglycerides Cholesterol LDL Cholesterol Direct HDL Cholesterol Vitamin B12 Thyroxine (T4) TSH 3rd Generation Urine Color Yellow Urine Clarity Turbid Urine pH 7.0 Ur Specific [place] 1.014 Urine Protein 30 Urine Glucose (UA) Neg Urine Ketones Negative Urine Blood Negative Urine Nitrate Negative Urine Bilirubin Negative Urine Urobilinogen 0.2-1.0 Ur Leukocyte Esterase Neg Urine RBC (Auto) < 1 Urine Microscopic WBC 4 Ur Squamous Epith Cells < 1 Amorphous Sediment Rare H Urine Yeast (Budding) Many H 03/10/18 03/10/18 07:29 07:29 WBC RBC Hgb Hct MCV MCH MCHC RDW Plt Count MPV Neut % (Auto) Lymph % (Auto) [place] % (Auto) Eos % (Auto) Baso % (Auto) Neut # (Auto) Lymph # (Auto) [place] # (Auto) Eos # (Auto) Baso # (Auto) PT INR APTT Sodium 143 Potassium 3.6 Chloride 103 Carbon Dioxide 25 Anion Gap 19 BUN 14 Creatinine 0.6 L Est GFR ( Amer) > 60 Est GFR (Non-Af Amer) > 60 POC Glucose (mg/dL) Random Glucose 158 H Calcium 9.3 Iron 71 TIBC 278 % Saturation 25 Total Bilirubin 0.7 AST 23 ALT 53 H Alkaline Phosphatase 74 Troponin I NT-Pro-B Natriuret Pep Total Protein 7.2 Albumin 4.0 Globulin 3.2 Albumin/Globulin Ratio 1.3 Triglycerides 140 D Cholesterol 229 H LDL Cholesterol Direct 142 H HDL Cholesterol 58 Vitamin B12 188 L Thyroxine (T4) 9.83 TSH 3rd Generation 1.51 Urine Color Urine Clarity Urine pH Ur Specific [place] Urine Protein Urine Glucose (UA) Urine Ketones Urine Blood Urine Nitrate Urine Bilirubin Urine Urobilinogen Ur Leukocyte Esterase Urine RBC (Auto) Urine Microscopic WBC Ur Squamous Epith Cells Amorphous Sediment Urine Yeast (Budding)
--- NOTE | 2018-03-10 09:33 | PCM.PYCHPN ---
Psychiatric Progress Note - Psychiatric Progress Note Patient seen today, length of contact: Patient evaluated, case discussed w/ team , chart reviewed Patient Chief Complaint: Behavior disturbance; patient states that she doesn't know why she is in the hospital Problems Identified/Issues Discussed: Patient is irritable towards staff and insurance underwriter sales. She is currently refusing to take her medications and has a poor appetite. She states that she likes to eat hot dogs, kazakh fries, and candy and is refusing to eat the food offered. Dietitian consult ordered. She has not had any periods of violence or aggression towards others, but yells when she is frustrated. She is difficult to engage in an interview at this time due to lack of willingness to speak with insurance underwriter sales. Medication Change: Yes (Increase Depakote to 125 mg PO BID) Medical Record Reviewed: Yes Consults ordered or reviewed: Medicine consult, PT, Dietitian referral Psychology consult: Pt is a 67 year old female admitted to the geropsych unit and referred to the insurance underwriter sales for evaluation. On the DRS, pt scored an overall score of 100 indicative of cognitive deficits. Pt scored in the Deficient Range on all tasks. Her ATtention, Construction, Conceptaulization, Memory and Initiation skills all fell in the DEficienrt Range. Pt also evidenced poor frustration tolerance and irritablity on evaluation. Overall 100 Attention 31 (32 wnl) construction 2 (4 wnl) Conceptualization 31 (32 wnl) Initiation 26 (32 wnl) Memory 10> (18 wnl) Signfiicant deficits noted, Thankk you for this referral, Dr. Garcia Mental Status Examination - Cognitive Function Orientation: Person, Place Memory: Impaired Attention: Poor Concentration: Poor Association: Loose Decription of patient's judgement and insights: Poor I/J - Mood Mood: Neutral - Affect Affect: Other (Labile) - Formal Thought Process Formal Thought Process: Loosening of associations Psychotic Thoughts and Behaviors: Denies AH/VH/paranoia - Suicidal Ideation Suicidal Ideation: No - Homicidal Ideation Homicidal Ideation: No Goal/Treatment Plan - Goal/Treatment Plan Need for Continued Stay: Remain at risks for inpatient hospitalization, Severe functional impairment Progress Toward Problem(s) and Goals/Treatment Plan: Dementia with behavioral disturbances -Individual and group therapy -Medicine consult -PT evaluation -Dietitian referral -Psychology consult appreciated -Increase Depakote to 125 mg PO BID -Disposition planning Estimated Date of D/C: 03/15/18 - Smoking Cessation Smoking Cessation Initiated: No Reason for not providing: Not indicated
[2018-03-10 13:06] LABS: FOLATE 13.7 ng/mL
--- NOTE | 2018-03-10 19:46 | CP.PCM.PN ---
Subjective - Date & Time of Evaluation Date of Evaluation: 03/10/18 Time of Evaluation: 22:22 - Subjective Subjective: Above noted Objective - Vital Signs/Intake and Output Vital Signs (last 24 hours): Temp Pulse Resp BP Pulse Ox 99.0 F 70 18 130/69 96 03/10/18 16:04 03/10/18 16:04 03/10/18 16:04 03/10/18 16:04 03/09/18 14:14 - Medications Medications: Current Medications Acetaminophen (Tylenol 325mg Tab) 650 mg PO Q4 PRN PRN Reason: Pain, moderate (4-7) Al Hydrox/Mg Hydrox/Simethicone (Maalox Plus 30 Ml) 30 ml PO Q4 PRN PRN Reason: Dyspepsia Atorvastatin Calcium (Lipitor) 10 mg PO HS [facility] Last Admin: 03/09/18 21:06 Dose: 10 mg Bismuth Subsalicylate (Pepto-Bismol) 524 mg PO Q4 PRN PRN Reason: Diarrhea Divalproex Sodium (Depakote Sprinkles) 125 mg PO BID [facility] Last Admin: 03/10/18 16:19 Dose: 125 mg Enalapril Maleate (Vasotec) 10 mg PO DAILY [facility] Last Admin: 03/10/18 10:56 Dose: 10 mg Insulin Human Lispro (Humalog) 0 units SC ACBD [facility] Last Admin: 03/10/18 16:19 Dose: Not Given Lorazepam (Ativan) 0.5 mg PO HS PRN PRN Reason: Insomnia Stop: 03/23/18 13:40 Lorazepam (Ativan) 0.5 mg PO Q6 PRN PRN Reason: Anixety/Agitation Stop: 03/23/18 13:40 Last Admin: 03/09/18 20:50 Dose: 0.5 mg Magnesium Hydroxide (Milk Of Magnesia) 30 ml PO HS PRN PRN Reason: Constipation Metformin HCl (Glucophage) 850 mg PO BID [facility] Last Admin: 03/10/18 16:19 Dose: 850 mg Multivitamins/Minerals (Therapeutic-M Tab) 1 tab PO DAILY [facility] Last Admin: 03/10/18 10:56 Dose: 1 tab Sitagliptin Phosphate (Januvia) 100 mg PO DAILY [facility] Last Admin: 03/10/18 10:56 Dose: 100 mg - Labs Labs: 03/09/18 10:16 03/10/18 07:29 PT 11.6 Seconds (9.8-13.1) 03/09/18 10:16 INR 1.0 (0.9-1.2) 03/09/18 10:16 APTT 25.9 Seconds (25.6-37.1) 03/09/18 10:16 - Respiratory Exam Respiratory Exam: NORMAL BREATHING PATTERN - Cardiovascular Exam Cardiovascular Exam: REGULAR RHYTHM - GI/Abdominal Exam GI & Abdominal Exam: Normal Bowel Sounds Assessment and Plan - Assessment and Plan (Free Text) Assessment: Agitation?? Psychiatry Cerebral Palsy Recurrent falls T/C Neurology NIDDM Cont meds Endo Chronic sinobronchial dx Atopy??
--- NOTE | 2018-03-11 01:21 | PN ---
DATE: ENDO FOLLOWUP NOTE LOCATION: In room 306, geropsychiatry. This is a 67-year-old female with known history of type 2 diabetes and hypertension and also cerebral palsy and has been admitted here for further psychiatric evaluation and management of recent aggressive and violent behavior at home as noted. Her glycemic profile has improved and the glucose values today have ranged from 137-149 mg/dL. Her latest chemistry showed a BUN of 14, sodium 143, potassium 3.6, chloride 103, CO2 of 25, glucose 158 and creatinine 0.3. Her thyroid studies showed a T4 of 9.8 with a TSH of 1.51. Her hemoglobin A1c is 7.5%. ASSESSMENT: This is a 67-year-old female with mentally and physically challenged with underlying cerebral palsy since and has been in the care of her mother all her life till the present time. However, the mother is now 95 years old and is also having dementia and behavioral disturbances and also has become very frail and physically disabled and has also been admitted to the hospital for further workup and management. Moreover, she also has recent violent behavioral disturbances and has been started on psychotropic medications as noted. Her glycemic profile has been near optimal on a triple oral hypoglycemic drug regimen as given. PLAN OF MANAGEMENT: As discussed with the patient and staff, we will continue her metformin given as 850 mg b.i.d. with Januvia given as 100 mg once daily as ordered. We will hold off the initiation of glipizide pending the improvement of her oral intake at this time. We will obtain serial chemistries and supplement accordingly as needed. We will also highly recommend for the patient to be in a more controlled and safer environment like usp placement not only for her glucose monitoring and treatment of her oral hypoglycemic therapy but also for her safety because of the recent behavioral disturbances thereof. We will obtain serial chemistry and supplement accordingly as needed. Shani Gay MD
[2018-03-11] MEDS ORDERED: DiphenhydrAMINE 50 mg/ml Inj IM STA (06:09)
[2018-03-11] MEDS: Insulin Lispro (humaLOG) 100 Units/ml Inj SC SCH ×2 (08:49→16:53)
[2018-03-11] MEDS: Multivitamin With Minerals Tab PO SCH (09:39)
[2018-03-11] MEDS: Divalproex 125 mg Sprinkle Capsule PO SCH (09:39)
[2018-03-11 12:59] LABS: SQUAMOUS EPITHIAL < 1 /hpf (0-5); URINE BILIRUBIN NEGATIVE (NEGATIVE); URINE BLOOD SMALL (NEGATIVE); URINE CLARITY SLIGHTY-CLOUDY (Clear); URINE COLOR YELLOW (YELLOW); URINE GLUCOSE (UA) NEG (Normal); URINE LEUKOCYTE ESTERASE LARGE Leu/uL (Negative); URINE PROTEIN 30 mg/dL (NEGATIVE)
--- NOTE | 2018-03-11 14:27 | PCM.PYCHPN ---
Psychiatric Progress Note - Psychiatric Progress Note Patient seen today, length of contact: Patient evaluated, case discussed w/ team , chart reviewed Patient Chief Complaint: I want to make my own waffles Problems Identified/Issues Discussed: pt continues to have episodes of agitation and anger, upset about being in the hospital, patient oriented to person only with limited insight into illness DSM 5 Symptoms Update: cerebral palsy Medication Change: Yes (Increase Depakote to 125 mg PO BID) Medical Record Reviewed: Yes Mental Status Examination - Cognitive Function Orientation: Person, Place Memory: Impaired Attention: Poor Concentration: Poor Association: Loose - Mood Mood: Depressed, Anxious, Neutral - Affect Affect: Other (Labile) Additional comments: angry - Formal Thought Process Formal Thought Process: Loosening of associations Psychotic Thoughts and Behaviors: no perceptual disturbances, reported or elicited - Suicidal Ideation Suicidal Ideation: No - Homicidal Ideation Homicidal Ideation: No Goal/Treatment Plan - Goal/Treatment Plan Need for Continued Stay: Remain at risks for inpatient hospitalization, Severe functional impairment Progress Toward Problem(s) and Goals/Treatment Plan: increase depakote 250mg bid and qhs Estimated Date of D/C: 03/15/18
[2018-03-11] MEDS: Divalproex 250 mg DR(BID formulation) PO SCH ×2 (17:54→21:05)
--- NOTE | 2018-03-11 19:05 | PN ---
ENDOCRINOLOGY FOLLOWUP NOTE DATE: LOCATION: In room 306, Geropsychiatry. SUBJECTIVE: This is a 67-year-old female with cerebral palsy and as really did not mentally and physically challenged since and has been under the loving care of her mother who and was admitted here because of worsening behavioral disturbances with violent and aggressive behavior as noted. She also has episodic temper tensions as noted. She is being followed closely for metabolic management because of known history of type 2 diabetes with control as outpatient on a triple oral hypoglycemic drug regimen as given. Her latest glucose levels today have ranged from 154 to 221 mg/dL. At that time, glucose was 119. The latest chemistries showed BUN of 14, sodium 143, potassium 3.6, chloride 103, CO2 of 25, glucose 158, and creatinine 0.6. Her hemoglobin A1c is 7.5%, which is near metabolic in terms of metabolic control especially was a kind of patient that she is. We will obtain serial chemistries and supplement accordingly as needed. She is being prepared for residential placement for optimal metabolic and diabetic management. We will follow. Shani Gay MD
--- NOTE | 2018-03-11 21:14 | CP.PCM.PN ---
Subjective - Date & Time of Evaluation Date of Evaluation: 03/11/18 Time of Evaluation: 22:22 - Subjective Subjective: Above noted Objective - Vital Signs/Intake and Output Vital Signs (last 24 hours): Temp Pulse Resp BP Pulse Ox 97.7 F 78 19 100/60 96 03/11/18 15:36 03/11/18 15:36 03/11/18 15:36 03/11/18 15:36 03/09/18 14:14 - Medications Medications: Current Medications Acetaminophen (Tylenol 325mg Tab) 650 mg PO Q4 PRN PRN Reason: Pain, moderate (4-7) Al Hydrox/Mg Hydrox/Simethicone (Maalox Plus 30 Ml) 30 ml PO Q4 PRN PRN Reason: Dyspepsia Atorvastatin Calcium (Lipitor) 10 mg PO HS [facility] Last Admin: 03/11/18 21:04 Dose: 10 mg Bismuth Subsalicylate (Pepto-Bismol) 524 mg PO Q4 PRN PRN Reason: Diarrhea Divalproex Sodium (Depakote Dr(*Bid*)) 250 mg PO BID [facility] Last Admin: 03/11/18 17:54 Dose: 250 mg Divalproex Sodium (Depakote Dr(*Bid*)) 250 mg PO HS [facility] Last Admin: 03/11/18 21:05 Dose: 250 mg Enalapril Maleate (Vasotec) 10 mg PO DAILY [facility] Last Admin: 03/11/18 09:39 Dose: 10 mg Glipizide (Glucotrol) 10 mg PO BIDAC [facility] Last Admin: 03/11/18 17:52 Dose: 10 mg Insulin Human Lispro (Humalog) 0 units SC [facility] Last Admin: 03/11/18 16:53 Dose: Not Given Lorazepam (Ativan) 0.5 mg PO HS PRN PRN Reason: Insomnia Stop: 03/23/18 13:40 Lorazepam (Ativan) 0.5 mg PO Q6 PRN PRN Reason: Anixety/Agitation Stop: 03/23/18 13:40 Last Admin: 03/09/18 20:50 Dose: 0.5 mg Magnesium Hydroxide (Milk Of Magnesia) 30 ml PO HS PRN PRN Reason: Constipation Metformin HCl (Glucophage) 850 mg PO BID [facility] Last Admin: 03/11/18 17:52 Dose: 850 mg Multivitamins/Minerals (Therapeutic-M Tab) 1 tab PO DAILY [facility] Last Admin: 03/11/18 09:39 Dose: 1 tab Sitagliptin Phosphate (Januvia) 100 mg PO DAILY [facility] Last Admin: 03/11/18 09:39 Dose: 100 mg - Labs Labs: 03/09/18 10:16 03/10/18 07:29 PT 11.6 Seconds (9.8-13.1) 03/09/18 10:16 INR 1.0 (0.9-1.2) 03/09/18 10:16 APTT 25.9 Seconds (25.6-37.1) 03/09/18 10:16 - Respiratory Exam Respiratory Exam: NORMAL BREATHING PATTERN - Cardiovascular Exam Cardiovascular Exam: REGULAR RHYTHM - GI/Abdominal Exam GI & Abdominal Exam: Normal Bowel Sounds Assessment and Plan - Assessment and Plan (Free Text) Assessment: Agitation?? Depakote Psychiatry Cerebral Palsy Recurrent falls T/C Neurology NIDDM Cont meds Endo Chronic sinobronchial dx Atopy??
--- NOTE | 2018-03-12 11:06 | PN ---
DATE: ENDO FOLLOWUP NOTE LOCATION: Room 306. SUBJECTIVE: This is a 67-year-old female with recent admission for closer psychiatric evaluation and management because of aggressive and violent behavioral disturbances at home and is now also being followed closely for metabolic management. She has underlying cerebral palsy and has been mentally and physically challenged at this time. Her glycemic levels are fluctuating, but improved and the glucose values today have ranged from 86-141 and 145 mg/dL. Her latest chemistry showed BUN of 14, sodium of 143, potassium of 3.6, chloride of 103, CO2 of 25, glucose of 158, and creatinine of 0.6. Her hemoglobin A1c is 7.5%, which is near optimal for her degree of activity and oral intake at home. Her thyroid studies showed TSH of 1.51 and a T4 of 9.83. ASSESSMENT: This is a 67-year-old female with uncontrolled type 2 diabetes on combination therapy presenting here to Psychiatry for closer evaluation and management of recent aggressive behavior as noted. PLAN OF MANAGEMENT: We will continue the triple oral hypoglycemic drug regimen as modified with glipizide to be given as 10 mg b.i.d. before meals and metformin at 850 mg b.i.d. after meals as ordered. We will continue her Januvia at 100 mg daily and also the very low dose correction scale using Humalog insulin as given. We will obtain serial chemistries and supplement accordingly as needed. We will follow and advice accordingly. Shani Gay MD
[2018-03-12] MEDS: Insulin Lispro (humaLOG) 100 Units/ml Inj SC SCH ×2 (11:54→16:38)
[2018-03-12] MEDS: Multivitamin With Minerals Tab PO SCH (11:54)
[2018-03-12] MEDS: Divalproex 250 mg DR(BID formulation) PO SCH ×3 (11:55→21:44)
--- NOTE | 2018-03-12 12:59 | PCM.PYCHPN ---
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 Medication Change: Yes (Increase Depakote 250mg bid and 250mg qhs) Medical Record Reviewed: Yes Mental Status Examination - Cognitive Function Orientation: Person, Place Memory: Impaired Attention: Poor Concentration: Poor Association: Loose - Mood Mood: Depressed, Anxious, Neutral - Affect Affect: Other (Labile) - Formal Thought Process Formal Thought Process: Loosening of associations Psychotic Thoughts and Behaviors: no perceptual disturbances, reported or elicited - Suicidal Ideation Suicidal Ideation: No - Homicidal Ideation Homicidal Ideation: No Goal/Treatment Plan - Goal/Treatment Plan Need for Continued Stay: Remain at risks for inpatient hospitalization, Severe functional impairment Progress Toward Problem(s) and Goals/Treatment Plan: increase depakote 250mg bid and qhs behavior therapy Estimated Date of D/C: 03/15/18
--- NOTE | 2018-03-12 18:07 | CP.PCM.PN ---
Subjective - Date & Time of Evaluation Date of Evaluation: 03/12/18 Time of Evaluation: 22:22 - Subjective Subjective: Above noted Objective - Vital Signs/Intake and Output Vital Signs (last 24 hours): Temp Pulse Resp BP Pulse Ox 97.1 F L 84 19 137/64 96 03/12/18 16:06 03/12/18 16:06 03/12/18 16:06 03/12/18 16:06 03/09/18 14:14 - Medications Medications: Current Medications Acetaminophen (Tylenol 325mg Tab) 650 mg PO Q4 PRN PRN Reason: Pain, moderate (4-7) Al Hydrox/Mg Hydrox/Simethicone (Maalox Plus 30 Ml) 30 ml PO Q4 PRN PRN Reason: Dyspepsia Atorvastatin Calcium (Lipitor) 10 mg PO HS [facility] Last Admin: 03/11/18 21:04 Dose: 10 mg Bismuth Subsalicylate (Pepto-Bismol) 524 mg PO Q4 PRN PRN Reason: Diarrhea Divalproex Sodium (Depakote Dr(*Bid*)) 250 mg PO BID [facility] Last Admin: 03/12/18 16:37 Dose: 250 mg Divalproex Sodium (Depakote Dr(*Bid*)) 250 mg PO HS [facility] Last Admin: 03/11/18 21:05 Dose: 250 mg Enalapril Maleate (Vasotec) 10 mg PO DAILY [facility] Last Admin: 03/12/18 11:54 Dose: 10 mg Glipizide (Glucotrol) 10 mg PO BIDAC [facility] Last Admin: 03/12/18 16:37 Dose: 10 mg Insulin Human Lispro (Humalog) 0 [facility] Last Admin: 03/12/18 16:38 Dose: Not Given Lorazepam (Ativan) 0.5 mg PO HS PRN PRN Reason: Insomnia Stop: 03/23/18 13:40 Lorazepam (Ativan) 0.5 mg PO Q6 PRN PRN Reason: Anixety/Agitation Stop: 03/23/18 13:40 Last Admin: 03/09/18 20:50 Dose: 0.5 mg Magnesium Hydroxide (Milk Of Magnesia) 30 ml PO HS PRN PRN Reason: Constipation Metformin HCl (Glucophage) 850 mg PO BID [facility] Last Admin: 03/12/18 16:36 Dose: 850 mg Multivitamins/Minerals (Therapeutic-M Tab) 1 tab PO DAILY [facility] Last Admin: 03/12/18 11:54 Dose: 1 tab Sitagliptin Phosphate (Januvia) 100 mg PO DAILY [facility] Last Admin: 03/12/18 11:55 Dose: 100 mg - Labs Labs: 03/09/18 10:16 03/10/18 07:29 PT 11.6 Seconds (9.8-13.1) 03/09/18 10:16 INR 1.0 (0.9-1.2) 03/09/18 10:16 APTT 25.9 Seconds (25.6-37.1) 03/09/18 10:16 - Respiratory Exam Respiratory Exam: NORMAL BREATHING PATTERN - Cardiovascular Exam Cardiovascular Exam: REGULAR RHYTHM - GI/Abdominal Exam GI & Abdominal Exam: Normal Bowel Sounds Assessment and Plan - Assessment and Plan (Free Text) Assessment: Agitation?? Depakote Ativan Psychiatry Cerebral Palsy Recurrent falls T/C Neurology NIDDM Cont meds Endo Chronic sinobronchial dx Atopy??
[2018-03-13 06:23] LABS: BASO # 0.1 K/uL (0.0-0.2); EOS # 0.1 K/uL (0.0-0.7); EOS % 1.2 % (0.0-4.0); LYMPH % 25.1 % (20.0-40.0); MEAN CELL VOLUME 91.3 fl (81.0-99.0); MEAN CORPUSCULAR HEMOGLOBIN 30.9 pg (27.0-31.0); MEAN CORPUSCULAR HGB CONC 33.9 g/dL (33.0-37.0); MEAN PLATELET VOLUME 7.8 fl (7.2-11.7); MONO # 0.8 K/uL (0.0-0.8); MONO % 6.8 % (0.0-10.0); NEUT # 7.9 K/uL (1.8-7.0); NEUT % 65.9 % (50.0-75.0); NRBC % 0.1 % (0.0-0.0); RBC 4.52 Mil/uL (3.80-5.20); RED CELL DISTRIBUTION WIDTH 13.6 % (11.5-14.5); WHITE BLOOD COUNT 11.9 K/uL (4.8-10.8)
[2018-03-13 06:36] LABS: ALB/GLOB RATIO 1.2 (1.0-2.1); ALBUMIN 4.1 g/dL (3.5-5.0); ALT/SGPT 42 U/L (9-52); AST/SGOT 21 U/L (14-36); BLOOD UREA NITROGEN 23 mg/dl (7-17); CALCIUM 9.8 mg/dL (8.4-10.2); GFR AFRICAN-AMERICAN > 60; GFR NON-AFRICAN AMERICAN > 60
[2018-03-13] MEDS: Multivitamin With Minerals Tab PO SCH (08:27)
[2018-03-13] MEDS: Insulin Lispro (humaLOG) 100 Units/ml Inj SC SCH ×2 (08:29→17:22)
[2018-03-13] MEDS: Divalproex 250 mg DR(BID formulation) PO SCH ×3 (09:30→21:31)
--- NOTE | 2018-03-13 10:06 | PCM.PYCHPN ---
Psychiatric Progress Note - Psychiatric Progress Note Patient seen today, length of contact: Patient evaluated, case discussed w/ team , chart reviewed Patient Chief Complaint: Behavior disturbances Problems Identified/Issues Discussed: Patient had periods of agitation over the weekend and the Depakote was increased. No adverse effects to medications reported. She is currently calm w / radio news writer. No acute compliants. No acute depression/anxiety/psychosis. Medication Change: No Medical Record Reviewed: Yes Consults ordered or reviewed: Medicine consult, PT, Dietitian referral Psychology consult: Pt is a 67 year old female admitted to the geropsych unit and referred to the radio news writer for evaluation. On the DRS, pt scored an overall score of 100 indicative of cognitive deficits. Pt scored in the Deficient Range on all tasks. Her ATtention, Construction, Conceptaulization, Memory and Initiation skills all fell in the DEficienrt Range. Pt also evidenced poor frustration tolerance and irritablity on evaluation. Overall 100 Attention 31 (32 wnl) construction 2 (4 wnl) Conceptualization 31 (32 wnl) Initiation 26 (32 wnl) Memory 10> (18 wnl) Signfiicant deficits noted, Thankk you for this referral, Dr. aGrcia Mental Status Examination - Cognitive Function Orientation: Person, Place Memory: Impaired Attention: Poor Concentration: Poor Association: Loose Fund of Knowledge: Poor Decription of patient's judgement and insights: Chronic poor I/J due to cognitive impairment - Mood Mood: Neutral - Affect Affect: Other (Labile) - Speech Speech: Slurred - Formal Thought Process Formal Thought Process: Loosening of associations Psychotic Thoughts and Behaviors: Denies AH/VH/paranoia - Suicidal Ideation Suicidal Ideation: No - Homicidal Ideation Homicidal Ideation: No Goal/Treatment Plan - Goal/Treatment Plan Need for Continued Stay: Remain at risks for inpatient hospitalization, Severe functional impairment Progress Toward Problem(s) and Goals/Treatment Plan: Dementia with behavioral disturbances -Individual and group therapy -Medicine consult -PT evaluation -Dietitian referral -Psychology consult appreciated -Continue Depakote 250 mg PO BID/HS; will check VPA level -Disposition planning Estimated Date of D/C: 03/16/18
[2018-03-14 06:14] LABS: BASO # 0.1 K/uL (0.0-0.2); BASO % 0.9 % (0.0-2.0); EOS # 0.1 K/uL (0.0-0.7); EOS % 0.7 % (0.0-4.0); HEMOGLOBIN 14.3 g/dL (12.0-16.0); LYMPH # 3.5 K/uL (1.0-4.3); LYMPH % 26.4 % (20.0-40.0); MEAN CELL VOLUME 91.3 fl (81.0-99.0); MEAN CORPUSCULAR HEMOGLOBIN 30.1 pg (27.0-31.0); MEAN PLATELET VOLUME 7.8 fl (7.2-11.7); MONO % 7.4 % (0.0-10.0); NEUT # 8.5 K/uL (1.8-7.0); NEUT % 64.6 % (50.0-75.0); NRBC % 0.1 % (0.0-0.0); RBC 4.75 Mil/uL (3.80-5.20); RED CELL DISTRIBUTION WIDTH 13.7 % (11.5-14.5); WHITE BLOOD COUNT 13.1 K/uL (4.8-10.8)
[2018-03-14 06:20] LABS: BLOOD UREA NITROGEN 25 mg/dl (7-17); CALCIUM 10.3 mg/dL (8.4-10.2); GFR AFRICAN-AMERICAN > 60; GFR NON-AFRICAN AMERICAN > 60
[2018-03-14] MEDS: Divalproex 250 mg DR(BID formulation) PO SCH ×3 (08:23→21:01)
[2018-03-14] MEDS: Multivitamin With Minerals Tab PO SCH (08:23)
[2018-03-14] MEDS: Insulin Lispro (humaLOG) 100 Units/ml Inj SC SCH ×2 (08:25→17:03)
--- NOTE | 2018-03-14 08:25 | PCM.PYCHPN ---
Psychiatric Progress Note - Psychiatric Progress Note Patient seen today, length of contact: Patient evaluated, case discussed w/ team , chart reviewed Patient Chief Complaint: "I'm okay." Problems Identified/Issues Discussed: Patient had periods of agitation over the weekend and the Depakote was increased. No adverse effects to medications reported. She is currently calm w / service writer. No acute compliants. No acute depression/anxiety/psychosis. Medication Change: No Medical Record Reviewed: Yes Mental Status Examination - Cognitive Function Orientation: Person, Place Memory: Impaired Attention: Poor Concentration: Poor Association: Loose Fund of Knowledge: Poor Decription of patient's judgement and insights: Chronic poor I/J due to cognitive impairment - Mood Mood: Neutral - Affect Affect: Other (Labile) - Speech Speech: Slurred - Formal Thought Process Formal Thought Process: Loosening of associations Psychotic Thoughts and Behaviors: Denies AH/VH/paranoia - Suicidal Ideation Suicidal Ideation: No - Homicidal Ideation Homicidal Ideation: No Goal/Treatment Plan - Goal/Treatment Plan Need for Continued Stay: Remain at risks for inpatient hospitalization, Severe functional impairment Progress Toward Problem(s) and Goals/Treatment Plan: Dementia with behavioral disturbances -Individual and group therapy -Medicine consult -PT evaluation -Dietitian referral -Psychology consult appreciated -Continue Depakote 250 mg PO BID/HS; will check VPA level -Disposition planning Estimated Date of D/C: 03/16/18
--- NOTE | 2018-03-14 08:41 | PCM.PYCHPN ---
Psychiatric Progress Note - Psychiatric Progress Note Patient seen today, length of contact: Patient evaluated, case discussed w/ team , chart reviewed Patient Chief Complaint: "I'm okay." Problems Identified/Issues Discussed: Patient is improving clinically. She is calmer and less irritable. She did not have any periods of agitation last night. No acute complaints. No adverse effects to medications reported. No acute depression/anxiety/psychosis. Diagnostic Results: VPA 72.6 on 03/14/18 Medication Change: No Medical Record Reviewed: Yes Consults ordered or reviewed: Medicine consult, PT, Dietitian referral Psychology consult: Pt is a 67 year old female admitted to the geropsych unit and referred to the conventional underwriter for evaluation. On the DRS, pt scored an overall score of 100 indicative of cognitive deficits. Pt scored in the Deficient Range on all tasks. Her ATtention, Construction, Conceptaulization, Memory and Initiation skills all fell in the DEficienrt Range. Pt also evidenced poor frustration tolerance and irritablity on evaluation. Overall 100 Attention 31 (32 wnl) construction 2 (4 wnl) Conceptualization 31 (32 wnl) Initiation 26 (32 wnl) Memory 10> (18 wnl) Signfiicant deficits noted, Thankk you for this referral, Dr. Garcia Mental Status Examination - Cognitive Function Orientation: Person, Place Memory: Impaired Attention: Poor Concentration: Poor Association: Loose Fund of Knowledge: Poor Decription of patient's judgement and insights: Chronic poor I/J due to cognitive impairment - Mood Mood: Neutral - Affect Affect: Constricted - Speech Speech: Slurred - Formal Thought Process Formal Thought Process: Loosening of associations Psychotic Thoughts and Behaviors: Denies AH/VH/paranoia - Suicidal Ideation Suicidal Ideation: No - Homicidal Ideation Homicidal Ideation: No Goal/Treatment Plan - Goal/Treatment Plan Need for Continued Stay: Remain at risks for inpatient hospitalization, Severe functional impairment Progress Toward Problem(s) and Goals/Treatment Plan: Dementia with behavioral disturbances -Individual and group therapy -Medicine consult -PT evaluation -Dietitian referral -Psychology consult appreciated -Continue Depakote 250 mg PO BID/HS; VPA 72.6 on 03/14/18 -Disposition planning Estimated Date of D/C: 03/16/18
--- NOTE | 2018-03-14 08:56 | PN ---
ENDOCRINOLOGY FOLLOWUP NOTE DATE: [facility] SUBJECTIVE: This is a 67-year-old female with recent uncontrolled type 2 diabetes now being followed closely for metabolic management. She has been admitted to the Geropsych unit because of recent agitation and aggressive behavior with underlying cerebral palsy and concomitant cognitive and neuro behavioral disturbances. Her oral intake has been variable as per the nursing staff with low normal glycemic profile today and the glucose levels have ranged from 64-94 and 103 mg/dL. Her latest chemistry showed a BUN of 23, sodium 144, potassium 4.7, chloride 102, CO2 of 27, glucose 113 and creatinine of 0.7. So at this time, we will continue the same dosing of the metformin given as 850 mg b.i.d. as ordered. We will lower the glipizide to 5 mg b.i.d. before meals to start tomorrow morning as ordered. We will continue her Januvia given as 100 mg once daily as ordered. We will obtain serial chemistries and supplement accordingly needed. We will follow and advise accordingly. Shani Gay MD
[2018-03-14 09:47] LABS: SQUAMOUS EPITHIAL 1 /hpf (0-5); URINE BILIRUBIN NEGATIVE (NEGATIVE); URINE BLOOD NEGATIVE (NEGATIVE); URINE CLARITY CLEAR (Clear); URINE COLOR YELLOW (YELLOW); URINE GLUCOSE (UA) NEG (Normal); URINE LEUKOCYTE ESTERASE NEG Leu/uL (Negative); URINE PROTEIN NEGATIVE (NEGATIVE); URINE UROBILINOGEN 0.2-1.0 mg/dL (0.2-1.0)
--- NOTE | 2018-03-14 15:01 | PN ---
DATE: ENDO FOLLOWUP NOTE LOCATION: [facility]. SUBJECTIVE: This is a 67-year-old female with recent behavioral disturbances and aggressive and violent behavior and currently undergoing closer psychiatric evaluation and management and is also being followed closely for metabolic management. Her glycemic profile has improved overnight and the glucose values have ranged from 123 mg/dL to 161 mg/dL. Her latest chemistry showed BUN of 25, sodium of 144, potassium of 4.6, chloride of 98, CO2 of 28, glucose of 137, and creatinine of 0.7. So at this time, we will continue the modified triple oral hypoglycemic therapy as given with metformin given as 850 mg b.i.d. and glipizide at 5 mg before meals and Januvia at 100 mg once daily as ordered. We will continue the low-dose correction scale using Humalog insulin as given. We will titrate incrementally as indicated to optimize metabolic control. We will follow. Shani Gay MD
[2018-03-15 05:45] VITALS: BP 108/69; PULSE 79; RESP 19; TEMP 97.7
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
[2018-03-15] MEDS: Multivitamin With Minerals Tab PO SCH (09:51)
[2018-03-15] MEDS: Divalproex 250 mg DR(BID formulation) PO SCH (09:53)
[2018-03-15] MEDS: Insulin Lispro (humaLOG) 100 Units/ml Inj SC SCH (09:54)
--- NOTE | 2018-03-15 20:42 | CP.PCM.PN ---
Subjective - Date & Time of Evaluation Date of Evaluation: 03/15/18 Time of Evaluation: 22:22 - Subjective Subjective: Called for urine culture results Pt assymptomatic and UA shows no WBC Advised f/u UA and CS at transferring facility In addition suggested repeat CBC for elevated WBC Objective - Vital Signs/Intake and Output Vital Signs (last 24 hours): Temp Pulse Resp BP Pulse Ox 97.7 F 79 19 108/69 96 03/15/18 05:44 03/15/18 05:44 03/15/18 05:44 03/15/18 05:44 03/09/18 14:14 - Labs Labs: 03/14/18 05:15 03/14/18 05:15 PT 11.6 Seconds (9.8-13.1) 03/09/18 10:16 INR 1.0 (0.9-1.2) 03/09/18 10:16 APTT 25.9 Seconds (25.6-37.1) 03/09/18 10:16
--- NOTE | 2018-03-15 21:31 | PN ---
ENDOCRINOLOGY FOLLOWUP NOTE DATE: LOCATION: In room [facility] SUBJECTIVE: This is a 67-year-old female with recent uncontrolled type 2 diabetes, currently undergoing psychiatric evaluation and management for recent behavioral disturbances as noted. She has improved clinically and psychologically with occasional bouts of agitation and currently on psychotropic medications as given. Her glycemic levels are also fluctuating, but improved and the glucose values today have ranged from 126 to 151 and 184 mg/dL. Her latest chemistry showed a BUN of 14, sodium 143, potassium 3.6, chloride 103, CO2 of 25, glucose 158 with a creatinine of 0.6. Her hemoglobin A1c is 7.5% as noted. So, at this time, we will continue the modified oral hypoglycemic therapy as given with glipizide given as 5 mg b.i.d. before meals and Januvia will be continued at 100 mg daily and metformin at 850 mg b.i.d. as ordered. We will obtain serial chemistries and supplement accordingly as needed. We will follow. Shani Gay MD
== END 2018-03-15 14:30 | DRG 884 ==
LOC: H.ER 09:27 → H.ERHOLD 13:23 → H.STEP 14:37
PROVIDERS: ADMIT Psychiatry & Neurology Psychiatry; ATTEND Psychiatry & Neurology Psychiatry
PROC: GZHZZZZ Group Psychotherapy (ICD-10-PCS; principal; 2018-03-09)
DX: F01.51 Vascular dementia, unspecified severity, with behavioral disturbance (principal); G80.9 Cerebral palsy, unspecified; E11.65 Type 2 diabetes mellitus with hyperglycemia; Z88.0 Allergy status to penicillin; I10 Essential (primary) hypertension; E78.00 Pure hypercholesterolemia, unspecified; E86.0 Dehydration; E78.5 Hyperlipidemia, unspecified; E66.3 Overweight; Z68.30 Body mass index [BMI] 30.0-30.9, adult

== ENCOUNTER 2018-04-13 14:03 | Emergency (ER) | payer MEDICARE, OTHER ==
[2018-04-13 14:03] VITALS: BMI 30.2
--- NOTE | 2018-04-13 15:16 | ED PDOC ---
HPI: General Adult Time Seen by Provider: 04/13/18 14:54 Chief Complaint (Nursing): Psychiatric Evaluation Chief Complaint (Provider): Psychiatric Evaluation History Per: Patient History/Exam Limitations: no limitations Current Symptoms Are (Timing): Still Present Additional Complaint(s): 67 year old female with a past medical history of dementia with behavioral disturbance, cerebal palsy and diabetes who presents to the emergency department after being sent from [facility] for agitation, screaming, and yelling. Patient in ED is calm cooperative but confused. Denies any further medical complaints. PMD: Dr. Joe Craft MD Past Medical History Reviewed: Historical Data, Nursing Documentation, Vital Signs Vital Signs: Last Vital Signs Temp 98.0 F 04/13/18 14:08 Pulse 86 04/13/18 14:08 Resp 18 04/13/18 14:08 BP 124/74 04/13/18 14:08 Pulse Ox 99 04/13/18 18:28 - Medical History PMH: Bronchitis, Diabetes, HTN, Hypercholesterolemia Denies: Hepatitis, HIV, Chronic Kidney Disease, Seizures, Sexually Transmitted Disease Other PMH: cerebral palsy with behavioral disturbance - Family History Family History: States: Unknown Family Hx - Immunization History Hx Tetanus Toxoid Vaccination: No Hx Influenza Vaccination: No Hx Pneumococcal Vaccination: No - Home Medications Home Medications: Ambulatory Orders Medication Instructions Recorded Atorvastatin [Lipitor] 10 mg PO HS 03/09/18 Enalapril Maleate [Vasotec] 10 mg PO DAILY 03/09/18 SITagliptin [Januvia] 100 mg PO DAILY 03/09/18 metFORMIN [glucOPHAGE] 850 mg PO BID 03/09/18 Divalproex [Omid ROBLERO(*BID*)] 250 mg PO BID tcp 03/15/18 Divalproex [Omid ROBLERO(*BID*)] 250 mg PO HS tcp 03/15/18 GlipiZIDE [Glucotrol] 5 mg PO BIDAC tab 03/15/18 Multimineral/Multivitamin 1 tab PO DAILY tab 03/15/18 [Therapeutic-M Tab] Acetaminophen [Tylenol 325mg tab] 650 mg PO Q6 PRN 04/13/18 Acetaminophen [Tylenol 325mg tab] 650 mg PO Q6 PRN 04/13/18 Insulin Lispro [humALOG] 2 - 8 unit SC AC 04/13/18 LORazepam [Ativan] 0.5 mg PO Q12 PRN 04/13/18 Magnesium Hydroxide [Milk Of 30 ml PO DAILY PRN 04/13/18 Magnesia] Melatonin [Melatonin] 5 mg PO HS 04/13/18 Mupirocin 2% Ointment [Bactroban 1 appl TOP DAILY 04/13/18 Ointment] - Allergies Allergies/Adverse Reactions: Allergies Allergy/AdvReac Type Severity Reaction Status Date / Time Penicillins Allergy RASH Verified 10/24/17 16:42 Review of Systems ROS Statement: Except As Marked, All Systems Reviewed And Found Negative (As per HPI, otherwise negative) Psych: Positive for: Other (Agitation) Physical Exam - Reviewed Nursing Documentation Reviewed: Yes Vital Signs Reviewed: Yes - Physical Exam Appears: Positive for: Well (Calm and cooperative but confused), No Acute Distress Head Exam: Positive for: NORMAL INSPECTION Skin: Positive for: Normal Color, Warm, Dry Cardiovascular/Chest: Positive for: Regular Rate, Rhythm. Negative for: Murmur Respiratory: Positive for: Normal Breath Sounds. Negative for: Accessory Muscle Use, Respiratory Distress Gastrointestinal/Abdominal: Positive for: Normal Exam, Soft. Negative for: Tenderness Extremity: Positive for: Normal ROM. Negative for: Pedal Edema Neurologic/Psych: Positive for: Alert, Oriented (x3) - Laboratory Results Result Diagrams: 04/13/18 15:59 04/13/18 15:59 - ECG O2 Sat by Pulse Oximetry: 99 (RA) Pulse Ox Interpretation: Normal Medical Decision Making Medical Decision Making: Time: 1505 Initial impression: Psychiatric evaluation Initial plan: EKG Acetaminophen Alcohol serum CMP Drug Screen, Urine Salicylate CBC w. diff Urinalysis Reevaluation Time: 1814 --Referred to psych. Time: 1899 --Transferred to Dr. Giovani VICTOR --Pending urine and crisis if medically cleared. Scribe Attestation: Documented by Sera Estevez, acting as a scribe for Miranda Barfield MD Provider Scribe Attestation: All medical record entries made by the Scribe were at my direction and personally dictated by me. I have reviewed the chart and agree that the record accurately reflects my personal performance of the history, physical exam, medical decision making, and the department course for this patient. I have also personally directed, reviewed, and agree with the discharge instructions and disposition. Disposition - Patient ED Disposition Is Patient to be Admitted: No - Disposition Disposition: Transfer of Care Disposition Time: 19:00 Condition: STABLE Forms: [employer] (Turkish) Patient Signed Over To: Bulmaro Matute
[2018-04-13 16:07] LABS: BASO # 0.1 K/uL (0.0-0.2); BASO % 1.1 % (0.0-2.0); EOS # 0.2 K/uL (0.0-0.7); EOS % 1.5 % (0.0-4.0); HEMOGLOBIN 12.8 g/dL (12.0-16.0); LYMPH # 2.6 K/uL (1.0-4.3); LYMPH % 21.6 % (20.0-40.0); MEAN CELL VOLUME 91.4 fl (81.0-99.0); MEAN CORPUSCULAR HEMOGLOBIN 30.6 pg (27.0-31.0); MEAN CORPUSCULAR HGB CONC 33.5 g/dL (33.0-37.0); MEAN PLATELET VOLUME 8.4 fl (7.2-11.7); MONO # 0.9 K/uL (0.0-0.8); MONO % 7.2 % (0.0-10.0); NEUT # 8.4 K/uL (1.8-7.0); NEUT % 68.6 % (50.0-75.0); NRBC % 0.1 % (0.0-0.0); RBC 4.19 Mil/uL (3.80-5.20); WHITE BLOOD COUNT 12.2 K/uL (4.8-10.8)
[2018-04-13 16:14] LABS: ACETAMINOPHEN < 10.0 ug/ml (10.0-30.0); SALICYLATE < 1.0 mg/dl
[2018-04-13 16:17] LABS: BLOOD UREA NITROGEN 31 mg/dl (7-17); CALCIUM 9.5 mg/dL (8.4-10.2); GFR AFRICAN-AMERICAN > 60; GFR NON-AFRICAN AMERICAN > 60
[2018-04-13 18:39] LABS: URINE BILIRUBIN NEGATIVE (NEGATIVE); URINE BLOOD NEGATIVE (NEGATIVE); URINE CLARITY CLEAR (Clear); URINE COLOR YELLOW (YELLOW); URINE GLUCOSE (UA) NEG (Normal); URINE LEUKOCYTE ESTERASE TRACE Leu/uL (Negative); URINE PROTEIN NEGATIVE (NEGATIVE)
[2018-04-13 19:00] LABS: BARBITURATES, UR NEGATIVE (NEGATIVE); BENZODIAZEPINES, UR NEGATIVE (NEGATIVE); OPIATES, UR NEGATIVE (NEGATIVE); PHENCYCLIDINE, UR NEGATIVE (NEGATIVE)
--- NOTE | 2018-04-13 19:13 | ED PDOC ---
- Laboratory Results Result Diagrams: 04/13/18 15:59 04/13/18 15:59 - ECG O2 Sat by Pulse Oximetry: 99 (RA) Pulse Ox Interpretation: Normal Medical Decision Making Medical Decision Making: Time: 1899 --Patient endorsed from Dr. Jean to me. --Pending urine and crisis if medically cleared. Time: 1937 --Patient was evaluated by crisis and medically stable for admission. --Admit to hospital routine: As inpatient in [facility] for Dementia with behavioral disturbance under the care of Dr. Milo Teresa MD Time: 2129 --As per crisis, there is no person has medical power of tax attorney over patient so consent for admission is unobtainable. Accordingly patient may be safely discharged to intermediate per crisis and psychiatrist stream control officer. Scribe Attestation: Documented by Sera Estevez, acting as a scribe for Bulmaro Matute MD Provider Scribe Attestation: All medical record entries made by the Scribe were at my direction and personally dictated by me. I have reviewed the chart and agree that the record accurately reflects my personal performance of the history, physical exam, medical decision making, and the department course for this patient. I have also personally directed, reviewed, and agree with the discharge instructions and disposition. Disposition - Clinical Impression Clinical Impression: Dementia - POA Present On Arrival: None - Disposition Disposition: Routine/Home Disposition Time: 21:30 Condition: STABLE Instructions: Dementia (DC) Forms: [employer] (Brazilian)
[2018-04-13 19:58] VITALS: RESP 20
[2018-04-13 22:24] VITALS: BP 136/70; PULSE 70; TEMP 98.9
[2018-04-14 01:43] VITALS: O2SAT 99
--- NOTE | 2018-04-14 07:32 | RAD ---
HISTORY: clearance COMPARISON: Portable chest 03/09/2018. FINDINGS: LUNGS: No right-sided infiltrate. Patchy density at the left base may reflect atelectasis, infiltrate or possibly hiatal or diaphragmatic hernia. PLEURA: No significant pleural effusion identified, no pneumothorax apparent. CARDIOVASCULAR: Cardiac size appears prominent with an element of technical magnification likely present. No pulmonary vascular congestion however. OSSEOUS STRUCTURES: No significant abnormalities. VISUALIZED UPPER ABDOMEN: Normal. OTHER FINDINGS: None. IMPRESSION: Mild cardiomegaly question without pulmonary vascular congestion. Limited left basilar patchy atelectasis or infiltrate versus possible small hernia.
--- NOTE | 2018-04-15 10:42 | CARD ---
APPROVED REPORT EKG Measurement Heart [id number] <Conclusion> Sinus rhythm with occasional premature ventricular complexes Otherwise normal ECG
== END 2018-04-13 23:26 | disposition home or self-care (01) ==
LOC: H.ER 14:03 → H.ERHOLD 19:38 → UNDOADMIN 19:38 → H.ER 23:26
DX: F03.90 Unspecified dementia, unspecified severity, without behavioral disturbance, psychotic disturbance, mood disturbance, and anxiety (principal); I49.3 Ventricular premature depolarization
CPT/HCPCS: 71045; 80048; 81003; 85025; 87086; 93005; 99283; G0480

== ENCOUNTER 2018-04-28 13:58 | Inpatient (IN) | payer MEDICARE, OTHER ==
[2018-04-28 13:58] VITALS: BMI 30.2
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
[2018-04-28 18:31] LABS: BASO # 0.1 K/uL (0.0-0.2); BASO % 1.1 % (0.0-2.0); EOS # 0.2 K/uL (0.0-0.7); EOS % 1.9 % (0.0-4.0); HEMOGLOBIN 14.3 g/dL (12.0-16.0); LYMPH # 2.7 K/uL (1.0-4.3); LYMPH % 26.3 % (20.0-40.0); MEAN CELL VOLUME 92.3 fl (81.0-99.0); MEAN CORPUSCULAR HEMOGLOBIN 30.8 pg (27.0-31.0); MEAN CORPUSCULAR HGB CONC 33.3 g/dL (33.0-37.0); MEAN PLATELET VOLUME 8.2 fl (7.2-11.7); MONO # 0.7 K/uL (0.0-0.8); MONO % 6.7 % (0.0-10.0); NEUT # 6.6 K/uL (1.8-7.0); NRBC % 0.1 % (0.0-0.0); RBC 4.66 Mil/uL (3.80-5.20); RED CELL DISTRIBUTION WIDTH 14.4 % (11.5-14.5); WHITE BLOOD COUNT 10.3 K/uL (4.8-10.8)
--- NOTE | 2018-04-28 18:33 | RAD ---
HISTORY: clearance for admission COMPARISON: 04/13/2018 TECHNIQUE: Chest PA and lateral FINDINGS: LUNGS: No active pulmonary disease. PLEURA: No significant pleural effusion identified. No pneumothorax apparent. CARDIOVASCULAR: Normal. OSSEOUS STRUCTURES: No significant abnormalities. VISUALIZED UPPER ABDOMEN: Normal. OTHER FINDINGS: None. IMPRESSION: No active disease.
[2018-04-28 18:48] LABS: ALB/GLOB RATIO 1.2 (1.0-2.1); ALT/SGPT 30 U/L (9-52); AST/SGOT 20 U/L (14-36); BLOOD UREA NITROGEN 28 mg/dl (7-17); CALCIUM 9.5 mg/dL (8.4-10.2); GFR AFRICAN-AMERICAN > 60; GFR NON-AFRICAN AMERICAN > 60
[2018-04-28 18:54] LABS: SQUAMOUS EPITHIAL < 1 /hpf (0-5); URINE AMORPHOUS SEDIMENT RARE /ul (<OCC); URINE BACTERIA RARE (<OCC); URINE BILIRUBIN NEGATIVE (NEGATIVE); URINE BLOOD NEGATIVE (NEGATIVE); URINE CLARITY CLOUDY (Clear); URINE COLOR YELLOW (YELLOW); URINE GLUCOSE (UA) NEG (Normal); URINE LEUKOCYTE ESTERASE SMALL Leu/uL (Negative); URINE PROTEIN NEGATIVE (NEGATIVE)
[2018-04-28 19:08] LABS: BARBITURATES, UR NEGATIVE (NEGATIVE); BENZODIAZEPINES, UR NEGATIVE (NEGATIVE); OPIATES, UR NEGATIVE (NEGATIVE); PHENCYCLIDINE, UR NEGATIVE (NEGATIVE)
[2018-04-28] MEDS ORDERED: Alum-Mag Hydrox-Simethicone Susp (30 mL) PO PRN (21:01)
[2018-04-28] MEDS ORDERED: Magnesium Hydroxide Susp 30 ml UD PO PRN (21:01)
[2018-04-28] MEDS ORDERED: Bismuth Subsalicylate 262 mg/15 ml Sus (240 ml) PO PRN (21:01)
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
[2018-04-29 08:33] LABS: IRON 71 ug/dL (37-170)
[2018-04-29 08:38] LABS: T4 6.63 ug/dl (5.5-11.0)
[2018-04-29 08:43] LABS: % IRON SATURATION 25 % (20-55); TOTAL IRON BINDING CAPACITY 285 ug/dL (250-450)
--- NOTE | 2018-04-29 09:32 | PCM.PSYCH ---
Initial Psychiatric Evaluation - Initial Psychiatric Evaluation Type of Admission: Voluntary Chief Complaint (in patient's own words): i dont know Patient's Reaction to Hospitalization: pt is upset and easily agitated History of Present Illness and Precipitating Events: This is a 67 year old female with h/o dementia with behavioral disturbance and with previous admission last month brought from [facility] for admission because of aggressive behaviors towards peers and also scratching herself.pt has been paranoid and obsessed with ray cho. pt is a poor historian and as reported by cousin pt has h/o cerebral palsy and lived all her life with the mother and now both live in the same [place].pt has h/o irregular body movements and cognitive impairment .pt has been obsessed with ray amato of the [employer] and carries several of his pictures.pt is constantly pacing on unit and screaming at times when demands not met. Current Medications: Active Medications Generic Name Dose Route Start Last Admin Trade Name Freq PRN Reason Stop Dose Admin Acetaminophen 650 mg 04/28/18 21:01 Tylenol 325mg Tab PO Q4 PRN Pain, moderate (4-7) Al Hydrox/Mg Hydrox/Simethicone 30 ml 04/28/18 21:01 Maalox Plus 30 Ml PO Q4 PRN Dyspepsia Bismuth Subsalicylate 524 mg 04/28/18 21:01 Pepto-Bismol PO Q4 PRN Diarrhea Lorazepam 0.5 mg 04/28/18 21:01 Ativan PO 05/12/18 21:02 HS PRN Insomnia Lorazepam 0.5 mg 04/28/18 21:01 Ativan PO 05/12/18 21:02 Q6 PRN Anixety/Agitation Magnesium Hydroxide 30 ml 04/28/18 21:01 Milk Of Magnesia PO HS PRN Constipation Past Psychiatric History - Past Psychiatric History At [facility]: pt has one past admissiin d/c on 03/15 with depakote 250 mg bid Nature of Treatment: aggressive behaviors History of Abuse: pt denies History of ETOH/Drug Use: pt denies History of Family Illness: not reported Pertinent Medical Hx (Current Medical&Sleep Prob, Allergies): Allergies Allergy/AdvReac Type Severity Reaction Status Date / Time Penicillins Allergy RASH Verified 10/24/17 16:42 Atorvastatin [Lipitor] 10 mg PO HS 03/09/18 Enalapril Maleate [Vasotec] 10 mg PO DAILY 03/09/18 SITagliptin [Januvia] 100 mg PO DAILY 03/09/18 metFORMIN [glucOPHAGE] 850 mg PO BID 03/09/18 GlipiZIDE [Glucotrol] 5 mg PO BIDAC tab 03/15/18 Multimineral/Multivitamin [Therapeutic-M Tab] 1 tab PO DAILY tab 03/15/18 Acetaminophen [Tylenol 325mg tab] 650 mg PO Q6 PRN 04/13/18 Acetaminophen [Tylenol 325mg tab] 650 mg PO Q6 PRN 04/13/18 Insulin Lispro [humALOG] 2 - 8 unit SC AC 04/13/18 LORazepam [Ativan] 0.5 mg PO Q12 PRN 04/13/18 Magnesium Hydroxide [Milk Of Magnesia] 30 ml PO DAILY PRN 04/13/18 Melatonin [Melatonin] 5 mg PO HS 04/13/18 Mupirocin 2% Ointment [Bactroban Ointment] 1 appl TOP BID 04/13/18 Divalproex [Depakote DR] 500 mg PO Q12 04/28/18 LORazepam [Ativan] 0.5 mg PO 1300 04/28/18 h/o diabetes abd HTN h/o cerebral palsy Review of Systems - Review of Systems All systems: reviewed and no additional remarkable complaints except Mental Status Examination - Personal Presentation Personal Presentation: Looks older than stated age - Affect Affect: Other - Motor Activity Motor Activity: Psychomotor Agitation - Reliability in Providing Information Reliability in Providing Information: Poor, due to alteration in thoughts - Speech Speech: Disorganized - Mood Mood: Anxious, Other - Formal Thought Process Formal Thought Process: Paranoia, Flight of ideas - Obsessions/Compulsions Obsessions: Yes Compulsions: No - Cognitive Functions Orientation: Person, Place Sensorium: Alert Attention/Concentration: Easily distracted Abstract Thinking: [place] Estimate of Intelligence: Below average Judgement: Imparied, as evidence by: Poor judgement, Imparied, as evidence by: Lack of insight into illness Memory: Recent impaired, as evidence by: Inability to recall events of the day, Remote impaired as evidenced by: Inability to recall sig life events - Risk Risk: Diminished functioning, Other - Strength & Assets Inventory Strength & Assets Inventory: Family support DSM 5 DX - DSM 5 DSM 5 Diagnosis: 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 will use prn ativan for agitation and if pt remains agitated will add risperdal 0.25 mg bid will get more collateral info from [place] medical consult with the hospitalist
[2018-04-29] MEDS: Divalproex 500 mg ER (ONCE DAILY formulation) PO SCH ×2 (11:12→21:00)
--- NOTE | 2018-04-29 16:41 | CARD ---
APPROVED REPORT EKG Measurement Heart [id number] <Conclusion> Normal sinus rhythm Normal ECG
[2018-04-29] MEDS ORDERED: Divalproex 500 mg DR(BID formulation) PO SCH (17:00)
[2018-04-30] MEDS: Divalproex 500 mg DR(BID formulation) PO SCH ×2 (09:27→21:13)
[2018-04-30 13:49] VITALS: O2SAT 100
--- NOTE | 2018-04-30 14:20 | PCM.PYCHPN ---
Psychiatric Progress Note - Psychiatric Progress Note Patient Chief Complaint: pt has remained very irritible and labile and has been aggressive towards peers and remains with poor insight and need further stabilization. Medication Change: Yes (will add risperdal 0.25 mg bid) Medical Record Reviewed: Yes Mental Status Examination - Cognitive Function Attention: Poor Concentration: Poor Association: Loose Fund of Knowledge: Poor - Mood Mood: Anxious - Formal Thought Process Formal Thought Process: Paranoia, Flight of ideas - Suicidal Ideation Suicidal Ideation: No - Homicidal Ideation Homicidal Ideation: No Goal/Treatment Plan - Goal/Treatment Plan Progress Toward Problem(s) and Goals/Treatment Plan: will continue to titrate depakote to stabilize mood and add risperdal 0.25 mg bid to address aggressive behaviors . will engage pt in behavior plan.
[2018-05-01] MEDS: Divalproex 500 mg DR(BID formulation) PO SCH ×2 (08:37→16:54)
[2018-05-01] MEDS ORDERED: RISPERIDONE 0.25 MG ODT PO PRN (10:37)
--- NOTE | 2018-05-01 10:44 | PCM.PYCHPN ---
Psychiatric Progress Note - Psychiatric Progress Note Patient seen today, length of contact: Patient evaluated, case discussed with team, chart reviewed Patient Chief Complaint: "I'm okay." Problems Identified/Issues Discussed: Patient had several episodes of agitation and aggression yesterday. Risperdal was started yesterday. She continues to be difficult to redirect at times and is labile. She has poor insight and judgment at this time. She reports feeling sad. Denies AH/VH/SI/HI. Diagnostic Results: VPA 59.9 on 04/30/18 Medication Change: Yes (Change Risperdal to 0.5 mg PO HS) Medical Record Reviewed: Yes Consults ordered or reviewed: Medicine consult Mental Status Examination - Cognitive Function Orientation: Person Memory: Impaired Attention: Poor Concentration: Poor Association: Loose Fund of Knowledge: Poor Decription of patient's judgement and insights: Poor I/J - Mood Mood: Anxious - Affect Affect: Other (Labile) - Speech Speech: Slurred (Slurred/mumbles at times) - Formal Thought Process Formal Thought Process: Loosening of associations, Flight of ideas Psychotic Thoughts and Behaviors: Denies AH/VH - Suicidal Ideation Suicidal Ideation: No - Homicidal Ideation Homicidal Ideation: No Goal/Treatment Plan - Goal/Treatment Plan Need for Continued Stay: Remain at risks for inpatient hospitalization, Discharge may exacerbated symptoms, Severe functional impairment Progress Toward Problem(s) and Goals/Treatment Plan: Dementia with behavioral disturbances -Medicine consult -Individual and group therapy -Psychoeducation -Continue Depakote 500 mg PO BID, VPA 59.9 on 04/30/18 -Change Risperdal to 0.5 mg PO HS -Obtain collateral history -Disposition planning Estimated Date of D/C: 05/08/18 - Smoking Cessation Smoking Cessation Initiated: No Reason for not providing: Not indicated
[2018-05-01 12:41] LABS: FOLATE 10.6 ng/mL
--- NOTE | 2018-05-01 15:59 | CP.PCM.CON ---
History of Present Illness - History of Present Illness History of Present Illness: 67 y/o female with PMH cerebral palsy , halfway resident sent for crisis eval and psych admission for aggressive behaviour against her peers and scratching herself. Patient is a poor historian . She used to live with her mother all her life but since last year has been placed in [place].She denies any chest pain or SOB, urinary symptoms or changes i n bowel movements. As per staff and chart patient has been obsessed with Carl am[employer] . She has slurred speech and hard to understand Allergies ; PCN PMH: Cerebral aplsy , DM type II, behavioral problems Medications;See med rec Surgery ; None Family history ;None Social history : has cerebral palsy since ,has a POA. lives in [place], denies any toxic habits like smoking , ETOH or drug abuse ROS;14 point review of system negative except above PMD ; Used to be Dr Quispe's patient , but POA does not want patient to be followed any longer by Dr. quispe Review of Systems - Review of Systems All systems: reviewed and no additional remarkable complaints except Past Patient History - Infectious Disease Hx of Infectious Diseases: None - Tetanus Immunizations Tetanus Immunization: Unknown - Past Medical History & Family History Past Medical History?: Yes Past Family History: Reviewed and not pertinent - Past Social History Smoking Status: Never Smoked Chewing Tobacco Use: No Cigar Use: No Alcohol: None Drugs: Denies Home Situation {Lives}: [facility] Domestic Violence: Negative - CARDIAC Hx Hypercholesterolemia: Yes Hx Hypertension: Yes - PULMONARY Hx Bronchitis: Yes - NEUROLOGICAL Hx Dementia: Yes (with behavioral disturbance) - HEENT Hx HEENT Problems: Yes - RENAL Hx Chronic Kidney Disease: No - ENDOCRINE/METABOLIC Hx Endocrine Disorders: Yes - HEMATOLOGICAL/ONCOLOGICAL Hx Human Immunodeficiency Virus (HIV): No - INTEGUMENTARY Hx Dermatological Problems: Yes - MUSCULOSKELETAL/RHEUMATOLOGICAL Hx Musculoskeletal Disorders: Yes - GASTROINTESTINAL Hx Gastrointestinal Disorders: No - GENITOURINARY/GYNECOLOGICAL Hx Sexually Transmitted Disorders: No - PSYCHIATRIC Hx Psychophysiologic Disorder: Yes - SURGICAL HISTORY Hx Surgeries: No - ANESTHESIA Hx Anesthesia: No Hx Anesthesia Reactions: No Hx Malignant Hyperthermia: No Meds Allergies/Adverse Reactions: Allergies Allergy/AdvReac Type Severity Reaction Status Date / Time Penicillins Allergy RASH Verified 10/24/17 16:42 - Medications Medications: Current Medications Acetaminophen (Tylenol 325mg Tab) 650 mg PO Q4 PRN PRN Reason: Pain, moderate (4-7) Al Hydrox/Mg Hydrox/Simethicone (Maalox Plus 30 Ml) 30 ml PO Q4 PRN PRN Reason: Dyspepsia Bismuth Subsalicylate (Pepto-Bismol) 524 mg PO Q4 PRN PRN Reason: Diarrhea Last Admin: 04/30/18 14:03 Dose: 524 mg Divalproex Sodium (Depakote Dr(*Bid*)) 500 mg PO BID [facility] Enalapril Maleate (Vasotec) 10 mg PO DAILY [facility] Last Admin: 05/01/18 08:36 Dose: 10 mg Lorazepam (Ativan) 0.5 mg PO HS PRN PRN Reason: Insomnia Stop: 05/12/18 21:02 Lorazepam (Ativan) 1 mg PO Q6 PRN PRN Reason: Anixety/Agitation Stop: 05/12/18 21:02 Last Admin: 04/30/18 14:52 Dose: 1 mg Magnesium Hydroxide (Milk Of Magnesia) 30 ml PO HS PRN PRN Reason: Constipation Metformin HCl (Glucophage) 850 mg PO BIDWM [facility] Last Admin: 05/01/18 08:37 Dose: 850 mg Risperidone (Risperdal M-Tab) 0.5 mg PO HS [facility] Risperidone (Risperidone Odt 0.25mg) 0.25 mg PO Q8 PRN PRN Reason: Agitation Physical Exam - Constitutional Appears: Non-toxic, No Acute Distress - Head Exam Head Exam: ATRAUMATIC, NORMOCEPHALIC - Eye Exam Eye Exam: PERRL Pupil Exam: NORMAL ACCOMODATION - ENT Exam ENT Exam: Mucous Membranes Dry, Normal Exam - Neck Exam Neck exam: Positive for: Normal Inspection - Respiratory Exam Respiratory Exam: Clear to Auscultation Bilateral, NORMAL BREATHING PATTERN. absent: Rales, Wheezes, Respiratory Distress - Cardiovascular Exam Cardiovascular Exam: REGULAR RHYTHM, +S1, +S2. absent: JVD - GI/Abdominal Exam GI & Abdominal Exam: Normal Bowel Sounds, Soft. absent: Distended, Guarding, Rebound, Tenderness - Rectal Exam Rectal Exam: Deferred - Extremities Exam Extremities exam: Positive for: normal inspection, pedal pulses present. Negative for: calf tenderness, pedal edema - Neurological Exam Neurological exam: Alert, CN II-XII Intact, Oriented x3 Additional comments: mental retardation, cerebral palsy, abnormal upper extremity movement speech difficult to comprehand - Psychiatric Exam Psychiatric exam: Flat Affect - Skin Skin Exam: Dry Additional comments: multiple scratch figueroa to right lower extremity Results - Vital Signs Recent Vital Signs: Last Vital Signs Temp 97.5 F L 05/01/18 05:37 Pulse 74 05/01/18 05:37 Resp 18 05/01/18 05:37 BP 118/76 05/01/18 05:37 Pulse Ox 100 04/30/18 14:01 - Labs Result Diagrams: 04/28/18 14:00 04/28/18 14:00 Labs: Laboratory Results - last 24 hr 04/29/18 04/30/18 05/01/18 07:09 19:58 05:35 POC Glucose (mg/dL) 86 94 Folate 10.6 05/01/18 05/01/18 11:26 15:13 POC Glucose (mg/dL) 88 105 Folate Assessment & Plan - Assessment and Plan (Free Text) Assessment: 67 y/o female with PMH cerebral palsy ,DM , halfway resident sent for crisis eval and psych admission for aggressive behaviour against her peers and scratching herself. Patient is a poor historian . She used to live with her mother all her life but since last year has been placed in [place].She denies any chest pain or SOB, urinary symptoms or changes i n bowel movements. As per staff and chart patient has been obsessed with [employer] . She has slurred speech and hard to understand 1. Dementia with behavioral problems management as per psych TSH- wnl, Vitamin b12 - wnl RPR SEND URINE CX SINCE uA IS CLOUDY WITH FEW BACTERIA 2. DM type II controlled Resume home meds Metformin , Glipizide, januvia Accuchecks, insulin coverage Hgb A1C 6.6 Lipid profile- controlled . Continue Atorvastatin 3. Hypertension Resume Enalapril 4.RLE scratch figueroa topical moisturizer denies pruritus 5.Suspected UTI send urine cx
[2018-05-01] MEDS ORDERED: Magnesium Hydroxide Susp 30 ml UD PO PRN (17:08)
[2018-05-01] MEDS: Risperidone M tab 0.5MG PO SCH (21:08)
[2018-05-01] MEDS: Insulin Lispro (humaLOG) 100 Units/ml Inj SC SCH (21:08)
[2018-05-02] MEDS: Divalproex 500 mg DR(BID formulation) PO SCH ×3 (08:33→17:07)
[2018-05-02] MEDS: Insulin Lispro (humaLOG) 100 Units/ml Inj SC SCH ×4 (08:38→21:14)
[2018-05-02] MEDS: Multivitamin With Minerals Tab PO SCH (08:39)
--- NOTE | 2018-05-02 08:49 | PCM.PYCHPN ---
Psychiatric Progress Note - Psychiatric Progress Note Patient seen today, length of contact: Patient evaluated, case discussed with team, chart reviewed Patient Chief Complaint: "I'm okay." Problems Identified/Issues Discussed: Patient continues to have periods of irritability and was verbally aggressive towards another patient yestserday. She continues to be difficult to redirect at times and is labile. She has poor insight and judgment at this time. Denies AH/VH/SI/HI. Diagnostic Results: VPA 59.9 on 04/30/18 Medication Change: Yes (Increase Depakote to 500 mg PO Daily/625 mg PO Daily@ 1700) Medical Record Reviewed: Yes Consults ordered or reviewed: Medicine consult Mental Status Examination - Cognitive Function Orientation: Person Memory: Impaired Attention: Poor Concentration: Poor Association: Loose Fund of Knowledge: Poor Decription of patient's judgement and insights: Poor I/J - Mood Mood: Anxious - Affect Affect: Other (Labile) - Speech Speech: Slurred (Slurred/mumbles at times) - Formal Thought Process Formal Thought Process: Loosening of associations, Other (Irrelevant and tangential at times) Psychotic Thoughts and Behaviors: Denies AH/VH - Suicidal Ideation Suicidal Ideation: No - Homicidal Ideation Homicidal Ideation: No Goal/Treatment Plan - Goal/Treatment Plan Need for Continued Stay: Remain at risks for inpatient hospitalization, Discharge may exacerbated symptoms, Severe functional impairment Progress Toward Problem(s) and Goals/Treatment Plan: Dementia with behavioral disturbances -Medicine consult -Individual and group therapy -Psychoeducation -Increase Depakote to 500 mg PO Daily/625 mg PO Daily@1700, VPA 59.9 on 04/30/18 -Continue Risperdal 0.5 mg PO HS -Case discussed w/ POA -Disposition planning Estimated Date of D/C: 05/08/18
[2018-05-02] MEDS: Divalproex 125 mg DR (BID formulation) PO SCH (17:07)
[2018-05-02] MEDS: Risperidone M tab 0.5MG PO SCH (21:14)
[2018-05-03] MEDS: Divalproex 500 mg DR(BID formulation) PO SCH ×2 (08:24→17:12)
[2018-05-03] MEDS: Insulin Lispro (humaLOG) 100 Units/ml Inj SC SCH ×4 (08:25→21:02)
[2018-05-03] MEDS: Multivitamin With Minerals Tab PO SCH (08:25)
--- NOTE | 2018-05-03 10:51 | PCM.PYCHPN ---
Psychiatric Progress Note - Psychiatric Progress Note Patient seen today, length of contact: Patient evaluated, case discussed with team, chart reviewed Patient Chief Complaint: "I'm okay." Problems Identified/Issues Discussed: Patient continues to have periods of irritability and mood lability, but is more redirectable. She has poor insight and judgment at this time. Denies AH/ VH/SI/HI. Diagnostic Results: VPA 59.9 on 04/30/18 Medication Change: No Medical Record Reviewed: Yes Consults ordered or reviewed: Medicine consult Mental Status Examination - Cognitive Function Orientation: Person Memory: Impaired Attention: Poor Concentration: Poor Association: Loose Fund of Knowledge: Poor Decription of patient's judgement and insights: Poor I/J - Mood Mood: Anxious - Affect Affect: Other (Labile) - Speech Speech: Slurred (Slurred/mumbles at times) - Formal Thought Process Formal Thought Process: Loosening of associations, Other (Irrelevant and tangential at times) Psychotic Thoughts and Behaviors: Denies AH/VH - Suicidal Ideation Suicidal Ideation: No - Homicidal Ideation Homicidal Ideation: No Goal/Treatment Plan - Goal/Treatment Plan Need for Continued Stay: Remain at risks for inpatient hospitalization, Discharge may exacerbated symptoms, Severe functional impairment Progress Toward Problem(s) and Goals/Treatment Plan: Dementia with behavioral disturbances -Medicine consult -Individual and group therapy -Psychoeducation -Continue Depakote 500 mg PO Daily/625 mg PO Daily@1700, VPA 59.9 on 04/30/18; will recheck VPA level on 05/05/18 -Continue Risperdal 0.5 mg PO HS -Case discussed w/ POA -Disposition planning Estimated Date of D/C: 05/08/18
[2018-05-03] MEDS: Divalproex 125 mg DR (BID formulation) PO SCH (17:12)
[2018-05-03] MEDS: Risperidone M tab 0.5MG PO SCH (21:03)
--- NOTE | 2018-05-04 08:15 | PCM.PYCHPN ---
Psychiatric Progress Note - Psychiatric Progress Note Patient seen today, length of contact: Patient evaluated, case discussed with team, chart reviewed Patient Chief Complaint: "I'm okay." Problems Identified/Issues Discussed: Patient is currently calm and cooperative. Patient continues to have periods of irritability and mood lability, but is more redirectable. She has poor insight and judgment at this time. Denies AH/VH/SI/HI. Diagnostic Results: VPA 59.9 on 04/30/18 Medication Change: No Medical Record Reviewed: Yes Consults ordered or reviewed: Medicine consult Mental Status Examination - Cognitive Function Orientation: Person Memory: Impaired Attention: Poor Concentration: Poor Association: Loose Fund of Knowledge: Poor Decription of patient's judgement and insights: Poor I/J - Mood Mood: Anxious - Affect Affect: Other (Labile) - Speech Speech: Slurred (Slurred/mumbles at times) - Formal Thought Process Formal Thought Process: Loosening of associations, Other (Irrelevant and tangential at times) Psychotic Thoughts and Behaviors: Denies AH/VH - Suicidal Ideation Suicidal Ideation: No - Homicidal Ideation Homicidal Ideation: No Goal/Treatment Plan - Goal/Treatment Plan Need for Continued Stay: Remain at risks for inpatient hospitalization, Discharge may exacerbated symptoms, Severe functional impairment Progress Toward Problem(s) and Goals/Treatment Plan: Dementia with behavioral disturbances -Medicine consult -Individual and group therapy -Psychoeducation -Continue Depakote 500 mg PO Daily/625 mg PO Daily@1700, VPA 59.9 on 04/30/18; will recheck VPA level on 05/05/18 -Continue Risperdal 0.5 mg PO HS -Case discussed w/ POA -Disposition planning Estimated Date of D/C: 05/08/18
[2018-05-04] MEDS: Insulin Lispro (humaLOG) 100 Units/ml Inj SC SCH ×4 (08:43→21:02)
[2018-05-04] MEDS: Multivitamin With Minerals Tab PO SCH (08:44)
[2018-05-04] MEDS: Divalproex 500 mg DR(BID formulation) PO SCH ×2 (08:44→17:15)
[2018-05-04] MEDS: Divalproex 125 mg DR (BID formulation) PO SCH (17:15)
[2018-05-04] MEDS: Risperidone M tab 0.5MG PO SCH (21:02)
--- NOTE | 2018-05-05 08:07 | PCM.PYCHPN ---
Psychiatric Progress Note - Psychiatric Progress Note Patient seen today, length of contact: Patient evaluated, case discussed with team, chart reviewed Patient Chief Complaint: "I'm okay." Problems Identified/Issues Discussed: Patient is currently calm and cooperative. Patient is labile and irritable at times, but is in better behavioral control and is more redirectable. She has poor insight and judgment at this time. Denies AH/VH/SI/HI. Diagnostic Results: VPA 59.9 on 04/30/18 Medication Change: No Medical Record Reviewed: Yes Consults ordered or reviewed: Medicine consult Mental Status Examination - Cognitive Function Orientation: Person Memory: Impaired Attention: Poor Concentration: Poor Association: Loose Fund of Knowledge: Poor Decription of patient's judgement and insights: Poor I/J - Mood Mood: Anxious - Affect Affect: Broad - Speech Speech: Slurred (Slurred/mumbles at times) - Formal Thought Process Formal Thought Process: Loosening of associations Psychotic Thoughts and Behaviors: Denies AH/VH - Suicidal Ideation Suicidal Ideation: No - Homicidal Ideation Homicidal Ideation: No Goal/Treatment Plan - Goal/Treatment Plan Need for Continued Stay: Discharge may exacerbated symptoms, Severe functional impairment Progress Toward Problem(s) and Goals/Treatment Plan: Dementia with behavioral disturbances -Medicine consult -Individual and group therapy -Psychoeducation -Continue Depakote 500 mg PO Daily/625 mg PO Daily@1700, VPA 59.9 on 04/30/18 -Continue Risperdal 0.5 mg PO HS -Case discussed w/ POA -Disposition planning Estimated Date of D/C: 05/08/18
[2018-05-05] MEDS: Divalproex 500 mg DR(BID formulation) PO SCH ×2 (08:56→17:09)
[2018-05-05] MEDS: Insulin Lispro (humaLOG) 100 Units/ml Inj SC SCH ×4 (08:57→21:18)
[2018-05-05 09:09] LABS: BASO # 0.1 K/uL (0.0-0.2); BASO % 0.8 % (0.0-2.0); EOS # 0.2 K/uL (0.0-0.7); EOS % 1.7 % (0.0-4.0); HEMOGLOBIN 14.6 g/dL (12.0-16.0); LYMPH # 2.5 K/uL (1.0-4.3); LYMPH % 22.7 % (20.0-40.0); MEAN CELL VOLUME 92.2 fl (81.0-99.0); MEAN CORPUSCULAR HEMOGLOBIN 31.4 pg (27.0-31.0); MEAN PLATELET VOLUME 8.6 fl (7.2-11.7); MONO # 0.8 K/uL (0.0-0.8); MONO % 7.5 % (0.0-10.0); NEUT # 7.3 K/uL (1.8-7.0); NEUT % 67.3 % (50.0-75.0); NRBC % 0.2 % (0.0-0.0); RBC 4.64 Mil/uL (3.80-5.20); RED CELL DISTRIBUTION WIDTH 14.2 % (11.5-14.5); WHITE BLOOD COUNT 10.9 K/uL (4.8-10.8)
[2018-05-05 09:21] LABS: ALB/GLOB RATIO 1.2 (1.0-2.1); ALT/SGPT 28 U/L (9-52); AST/SGOT 23 U/L (14-36); BLOOD UREA NITROGEN 32 mg/dl (7-17); CALCIUM 9.7 mg/dL (8.4-10.2); GFR AFRICAN-AMERICAN > 60; GFR NON-AFRICAN AMERICAN > 60
[2018-05-05] MEDS: Multivitamin With Minerals Tab PO SCH (11:39)
[2018-05-05] MEDS: Divalproex 125 mg DR (BID formulation) PO SCH (17:25)
[2018-05-05] MEDS: Risperidone M tab 0.5MG PO SCH (21:18)
[2018-05-06 01:33] LABS: SQUAMOUS EPITHIAL < 1 /hpf (0-5); URINE BACTERIA RARE (<OCC); URINE BILIRUBIN NEGATIVE (NEGATIVE); URINE BLOOD NEGATIVE (NEGATIVE); URINE CLARITY CLEAR (Clear); URINE COLOR YELLOW (YELLOW); URINE GLUCOSE (UA) NEG (Normal); URINE LEUKOCYTE ESTERASE TRACE Leu/uL (Negative); URINE PROTEIN NEGATIVE (NEGATIVE); URINE UROBILINOGEN 0.2-1.0 mg/dL (0.2-1.0)
[2018-05-06] MEDS: Divalproex 500 mg DR(BID formulation) PO SCH ×2 (08:09→16:21)
[2018-05-06] MEDS: Multivitamin With Minerals Tab PO SCH (08:10)
[2018-05-06] MEDS: Insulin Lispro (humaLOG) 100 Units/ml Inj SC SCH ×4 (08:11→21:06)
[2018-05-06 08:43] LABS: BLOOD UREA NITROGEN 33 mg/dl (7-17); CALCIUM 9.7 mg/dL (8.4-10.2); GFR AFRICAN-AMERICAN > 60; GFR NON-AFRICAN AMERICAN > 60
--- NOTE | 2018-05-06 12:50 | PCM.PYCHPN ---
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 Medication Change: No Medical Record Reviewed: Yes Mental Status Examination - Cognitive Function Orientation: Person Memory: Impaired Attention: Poor Concentration: Poor Association: Loose Fund of Knowledge: Poor - Mood Mood: Anxious - Affect Affect: Broad - Speech Speech: Slurred (Slurred/mumbles at times) - Formal Thought Process Formal Thought Process: Loosening of associations - Suicidal Ideation Suicidal Ideation: No - Homicidal Ideation Homicidal Ideation: No Goal/Treatment Plan - Goal/Treatment Plan Need for Continued Stay: Discharge may exacerbated symptoms, Severe functional impairment Progress Toward Problem(s) and Goals/Treatment Plan: continue current management Estimated Date of D/C: 05/08/18
[2018-05-06] MEDS: Divalproex 125 mg DR (BID formulation) PO SCH (16:22)
[2018-05-06] MEDS: Risperidone M tab 0.5MG PO SCH (21:06)
[2018-05-07] MEDS: Divalproex 500 mg DR(BID formulation) PO SCH ×2 (08:23→16:32)
[2018-05-07] MEDS: Multivitamin With Minerals Tab PO SCH (08:24)
[2018-05-07] MEDS: Insulin Lispro (humaLOG) 100 Units/ml Inj SC SCH ×4 (08:25→21:11)
--- NOTE | 2018-05-07 14:13 | PCM.PYCHPN ---
Psychiatric Progress Note - Psychiatric Progress Note Patient seen today, length of contact: Patient evaluated, case discussed with team, chart reviewed Patient Chief Complaint: I am watching TV Problems Identified/Issues Discussed: pt seen in day room continues to be labile , tangential thought process , oriented to person and partially to place, denied any current suicidal or homicidal ideation, denied perceptual disturbances DSM 5 Symptoms Update: MAJOR NEUROCOGNITIVE DISORDER DUE TO CEREBRAL PALSY Medication Change: No Medical Record Reviewed: Yes Mental Status Examination - Cognitive Function Orientation: Person Memory: Impaired Attention: Poor Concentration: Poor Association: Loose Fund of Knowledge: Poor - Mood Mood: Anxious - Affect Affect: Broad - Speech Speech: Slurred (Slurred/mumbles at times) - Formal Thought Process Formal Thought Process: Loosening of associations - Suicidal Ideation Suicidal Ideation: No - Homicidal Ideation Homicidal Ideation: No Goal/Treatment Plan - Goal/Treatment Plan Need for Continued Stay: Discharge may exacerbated symptoms, Severe functional impairment Progress Toward Problem(s) and Goals/Treatment Plan: continue current management Estimated Date of D/C: 05/08/18
[2018-05-07] MEDS: Divalproex 125 mg DR (BID formulation) PO SCH (16:32)
[2018-05-07] MEDS: Risperidone M tab 0.5MG PO SCH (21:08)
[2018-05-08 05:26] VITALS: BP 120/72; PULSE 66; RESP 19; TEMP 98.1
[2018-05-08] MEDS: Divalproex 500 mg DR(BID formulation) PO SCH (08:55)
[2018-05-08] MEDS: Insulin Lispro (humaLOG) 100 Units/ml Inj SC SCH ×2 (08:57→15:45)
--- NOTE | 2018-05-08 08:59 | PCM.PYCHDC ---
Mental Status Examination - Mental Status Examination Orientation: Person, Place, Situation Memory: Impaired (Chronic deficitis in memory, attention, concentration, association and knowledge due to chronic neurocognitive impairment) Mood: Neutral Affect: Broad Speech: Slurred Attention: Poor Concentration: Poor Association: Loose Fund of Knowledge: Poor Formal Thought Process: Loosening of associations Description of patient's judgement and insight: Chronic poor I/J due to cognitive impairment Psychotic Thoughts and Behaviors: Denies AH/VH Suicidal Ideation: No Current Homicidal Ideation?: No Discharge Summary - Discharge Note Reason for Hospitalization: 67 y/o female with PMH cerebral palsy, sent from retirement for worsening aggression, agitation and mood lability. Allergies ; PCN PMH: Cerebral aplsy , DM type II, behavioral problems Medications;See med rec Surgery ; None Family history ;None Social history : has cerebral palsy since ,has a POA. lives [place], denies any toxic habits like smoking , ETOH or drug abuse Psychiatric History (includes Medical, Family, Personal Hx): aggressive behaviors Laboratory Data: Abnormal Lab Results 05/07/18 05/07/18 05/07/18 10:53 15:29 19:56 POC Glucose (mg/dL) 68 76 72 05/08/18 05:11 POC Glucose (mg/dL) 110 VPA 54.4 on 05/05/18 Consultations:: List each consultation separately and include: 1. Reason for request. 2. Findings. 3. Follow-up Consultations: Medicine consult Summary of Hospital Course include:: 1. Description of specific treatment plan utilized for patients during their course of treatmen. 2. Summarize the time- course for resolution of acute symptoms and/or regressed behaviors. 3. Describe issues identified and worked on during hospitalization. 4. Describe medication utilized. 5. Describe medical problems identified and treated. 6. Reassessment of suicide risk Summary of Hospital Course: Patient was admitted to the geriatric psychiatry unit. Individual and group therapy were provided. Patient was stabilized on Depakote 500 mg PO Daily/ 625 mg PO Daily@1700 (VPA 54.4 on 05/05/18) and Risperdal 0.5 mg PO HS. She is currently at her baseline of functioning and is psychiatrically stable for discharge. - Diagnosis (1) Dementia with behavioral disturbance Current Visit: Yes Status: Chronic - Final Diagnosis (DSM 5) Condition upon Discharge: STABLE DSM 5: Dementia with behavioral disturbances Disposition: TRANSF TO SNF Follow-up Treatment Plan: Dementia with behavioral disturbances -Medicine consult -Individual and group therapy -Psychoeducation -Continue Depakote 500 mg PO Daily/625 mg PO Daily@1700, VPA 54.4 on 05/05/18 -Continue Risperdal 0.5 mg PO HS -Case discussed w/ POA - Smoking Cessation Smoking Cessation Medication prescribed: No Reason for not providing: Not indicated - Antipsychotic Medications Pt discharged on 2 or more routine antipsychotic medications: No
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
== END 2018-05-08 13:45 | DRG 884 ==
LOC: H.ER 13:58 → H.ERHOLD 19:33 → H.STEP 20:53
PROVIDERS: ADMIT Psychiatry & Neurology Psychiatry; ATTEND Psychiatry & Neurology Psychiatry
PROC: GZ51ZZZ Individual Psychotherapy, Behavioral (ICD-10-PCS; 2018-04-28)
PROC: GZHZZZZ Group Psychotherapy (ICD-10-PCS; principal; 2018-05-01)
DX: F03.91 Unspecified dementia, unspecified severity, with behavioral disturbance (principal); G80.9 Cerebral palsy, unspecified; I10 Essential (primary) hypertension; Z88.0 Allergy status to penicillin; F45.9 Somatoform disorder, unspecified; F91.9 Conduct disorder, unspecified; J40 Bronchitis, not specified as acute or chronic; Z79.84 Long term (current) use of oral hypoglycemic drugs; Z79.899 Other long term (current) drug therapy; R45.86 Emotional lability; R47.81 Slurred speech; E11.9 Type 2 diabetes mellitus without complications; E78.00 Pure hypercholesterolemia, unspecified